=== PATIENT | male | born 1950 | race Caucasian/White ===

== ENCOUNTER 2017-03-03 08:22 | Outpatient (CLI) | payer OTHER ==
[2017-03-03 11:46] LABS: BASOPHILS # (AUTO) 0.1 10^3/uL (0.0-0.1); BASOPHILS % (AUTO) 1.3 %; EOSINOPHILS # (AUTO) 0.2 10^3/uL (0.0-0.7); EOSINOPHILS % (AUTO) 4.1 %; HCT - HEMATOCRIT 36.9 % (42.0-52.0); HGB - HEMOGLOBIN 12.4 g/dL (14.0-18.0); LYMPHOCYTES # (AUTO) 3.2 10^3/uL (1.5-3.5); LYMPHOCYTES % (AUTO) 54.4 %; MEAN CORPUSCULAR HEMOGLOBIN 28.7 pg (27.0-31.0); MEAN CORPUSCULAR HGB CONC 33.4 g/dL (32.0-36.0); MEAN CORPUSCULAR VOLUME 85.9 fL (80.0-94.0); MEAN PLATELET VOLUME 9.2 fL (7.4-11.4); MONOCYTES # (AUTO) 0.6 10^3/uL (0.0-1.0); NEUTROPHILS # (AUTO) 1.7 10^3/uL (1.5-6.6); NEUTROPHILS % (AUTO) 29.2 %; RED CELL DISTRIBUTION WIDTH 14.5 % (12.0-15.0); UNCORRECTED WHITE BLOOD COUNT 5.9 x10^3/uL; WHITE BLOOD COUNT 5.9 x10^3/uL (4.8-10.8)
[2017-03-03 12:04] LABS: ALBUMIN/GLOBULIN RATIO 1.3 (1.0-2.2); BILIRUBIN,TOTAL 0.7 mg/dL (0.2-1.0); BUN - BLOOD UREA NITROGEN 17 mg/dL (6-20); CALCIUM 9.8 mg/dL (8.5-10.3); CARBON DIOXIDE - CO2 28 mmol/L (21-32); CHLORIDE 108 mmol/L (101-111); CHOL/HDL RATIO 4.9 (<5.0); CHOLESTEROL 137 mg/dL; GFR - MDRD 75 (>89); GLUCOSE 86 mg/dL (70-100); HDL CHOLESTEROL 28 mg/dL; LDL/HDL RATIO 2.9 (<3.6); SODIUM 142 mmol/L (135-145); TOTAL PROTEIN 7.7 g/dL (6.7-8.2); TRIGLYCERIDES 146 mg/dL; URIC ACID 4.4 mg/dL (2.6-7.2); VLDL CHOLESTEROL 29 mg/dL
== END 2017-03-03 08:23 | disposition home or self-care (01) ==
LOC: LAB.F 08:22
PROVIDERS: ATTEND Family Medicine
DX: I10 Essential (primary) hypertension (principal); R53.83 Other fatigue; M10.9 Gout, unspecified; G47.30 Sleep apnea, unspecified; K21.9 Gastro-esophageal reflux disease without esophagitis
CPT/HCPCS: 36415; 80053; 80061; 84153; 84443; 84550; 85025

== ENCOUNTER 2017-08-04 23:59 | Emergency (ER) | payer OTHER ==
--- NOTE | 2017-08-05 00:19 | ED Physician Documentation ---
PD HPI CHEST PAIN - Stated complaint Stated Complaint: CHEST/BACK PX - Chief complaint Chief Complaint: Cardiac - History obtained from History obtained from: Patient - History of Present Illness Timing - onset: How many days ago (2) Timing - duration: Days Timing - details: Still present, Intermittant, Waxing and waning Pain level now: 8 Quality: Pain Location: Other (back (mid-level (lower thoracic/upper lumbar)), radiating around both sides to chest to sternum/epigastrium) Radiation: Other (as above) Improved by: Nothing Worsened by: Movement Associated symptoms: Feeling faint / dizzy (syncope x 2). No: Shortness of air , Diaphoresis, Nausea, Vomiting, General Weakness, Palpitations, Cough Similar symptoms before: Has not had sx before Recently seen: Not recently seen - Additional information Additional information: c/o 2 days of episodic back pain that radiates around both flanks, predominantly left side, to epigastrium and lower midline chest, became too intense to tolerate tonight. Earlier this evening, while taking a hot shower, he had two consecutive syncopal episodes, both with rapid recovery to baseline level of consciousness and both were associated with prodrome of lightheadedness , generalized weakness, and perception that he was going to "pass out". No injury with either syncopal episode. Patient says he has had similar episodes in the past; he provides example of an instance where he passed out due to "the sight of blood". However, the pain he is experiencing is not something he has had before. Review of Systems Constitutional: denies: Fever, Chills, Sweats Cardiac: reports: Chest pain / pressure. denies: Palpitations, Pedal edema, Calf pain Respiratory: reports: Reviewed and negative GI: reports: Abdominal Pain. denies: Nausea, Vomiting, Constipation, Diarrhea : denies: Dysuria, Frequency Skin: denies: Rash Musculoskeletal: reports: Back pain Neurologic: reports: Syncope. denies: Generalized weakness, Focal weakness, Numbness, Headache, Head injury PD PAST MEDICAL HISTORY - Past Medical History Cardiovascular: None Respiratory: None Endocrine/Autoimmune: None Musculoskeletal: Osteoarthritis, Rheumatoid arthritis, Osteoporosis, Fatigue, Chronic back pain - Present Medications Home Medications: Ambulatory Orders Medication Instructions Recorded Confirmed Allopurinol 1 tab PO DAILY 08/05/17 08/05/17 Atenolol 1 tab PO DAILY 08/05/17 08/05/17 Gemfibrozil 1 tab PO BID 08/05/17 08/05/17 HYDROmorphone [Dilaudid] 2 mg PO Q4H PRN #14 tablet 08/05/17 - Allergies Allergies/Adverse Reactions: Allergies Allergy/AdvReac Type Severity Reaction Status Date / Time sulfamethoxazole AdvReac Itching Verified 08/05/17 02:19 [From Bactrim] trimethoprim [From Bactrim] AdvReac Itching Verified 08/05/17 02:19 PD ED PE NORMAL - Vitals Vital signs reviewed: Yes - General General: Alert and oriented X 3, Well developed/nourished, Other (appears to be in painful distress) - HEENT HEENT: PERRL, EOMI, Moist mucous membranes - Neck Neck: No bony TTP - Cardiac Cardiac: RRR, No murmur - Respiratory Respiratory: No respiratory distress, Clear bilaterally - Abdomen Abdomen: Soft, Non tender, Non distended - Back Back: No CVA TTP, No spinal TTP - Derm Derm: Normal color, Warm and dry, No rash - Extremities Extremities: No deformity, No tenderness to palpate, No edema - Neuro Neuro: Alert and oriented X 3, 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, No motor deficit, No sensory deficit, Normal speech Eye Opening: Spontaneous Motor: Obeys Commands Verbal: Oriented GCS Score: 15 Results - Vitals Vitals: Vital Signs - 24 hr 08/05/17 08/05/17 08/05/17 00:05 00:10 00:26 Temperature 36.7 C Heart Rate 69 64 Respiratory 18 16 Rate Blood Pressure 148/74 H Blood Pressure 126/63 [Left] O2 Saturation 98 99 08/05/17 08/05/17 08/05/17 00:53 01:19 01:35 Temperature Heart Rate 67 64 64 Respiratory 15 14 15 Rate Blood Pressure 122/72 120/98 H 126/72 Blood Pressure [Left] O2 Saturation 100 100 100 08/05/17 08/05/17 08/05/17 01:58 02:10 02:43 Temperature Heart Rate 61 63 71 Respiratory 18 14 18 Rate Blood Pressure 127/66 127/66 126/77 Blood Pressure [Left] O2 Saturation 100 100 100 08/05/17 08/05/17 08/05/17 03:27 04:15 05:03 Temperature 36.4 C L Heart Rate 75 69 69 Respiratory 21 19 12 Rate Blood Pressure 119/70 115/69 106/51 L Blood Pressure [Left] O2 Saturation 99 97 99 08/05/17 08/05/17 05:37 06:15 Temperature Heart Rate 80 68 Respiratory 16 15 Rate Blood Pressure 106/60 100/68 Blood Pressure [Left] O2 Saturation 98 100 Oxygen O2 Source Room air - EKG (time done) No standard instances Rate: Rate (enter#) (68) Rhythm: NSR [place]: Normal Intervals: Normal [place] QRS: Normal Ischemia: Normal ST segments - Labs Labs: Laboratory Tests 08/05/17 08/05/17 08/05/17 00:10 00:10 00:10 WBC 10.3 RBC 4.32 L Hgb 12.8 L Hct 36.7 L MCV 84.9 MCH 29.7 MCHC 35.0 RDW 14.2 Plt Count 164 MPV 8.3 Neut # 6.7 H Lymph # 1.9 [place] # 1.4 H Eos # 0.2 Baso # 0.1 Absolute Nucleated RBC 0.00 Nucleated RBC % 0.0 D-Dimer Sodium 136 Potassium 4.0 Chloride 100 L Carbon Dioxide 25 Anion Gap 11.0 BUN 14 Creatinine 1.1 Estimated GFR (MDRD) 67 L Glucose 102 H Calcium 9.7 Total Bilirubin 0.5 AST 33 ALT 22 Alkaline Phosphatase 44 Troponin I < 0.04 Total Protein 8.4 H Albumin 4.8 Globulin 3.6 Albumin/Globulin Ratio 1.3 Lipase 40 08/05/17 00:10 WBC RBC Hgb Hct MCV MCH MCHC RDW Plt Count MPV Neut # Lymph # [place] # Eos # Baso # Absolute Nucleated RBC Nucleated RBC % D-Dimer 318.8 H Sodium Potassium Chloride Carbon Dioxide Anion Gap BUN Creatinine Estimated GFR (MDRD) Glucose Calcium Total Bilirubin AST ALT Alkaline Phosphatase Troponin I Total Protein Albumin Globulin Albumin/Globulin Ratio Lipase - Rads (name of study) chest xray Radiology: Prelim report reviewed, See rad report CT chest (contrast aorta study) Radiology: Prelim report reviewed, See rad report PD MEDICAL DECISION MAKING - ED course Complexity details: reviewed results, re-evaluated patient, considered differential, d/w patient, d/w family ED course: Transient relief with morphine 4mg IV, but subsequent dose did not improve the pain. IV Dilaudid 1mg resulted in good and sustained improvement. His SBP ran as low as 90 but mostly was in 100-120 range, and improved from 90 after [address] A/P reveals gallstone with GB dilatation. I offered admission, essentially for pain control, but patient strongly expresses that he wants to go home. He says he has had unpleasant side effect with oxycodone and hydrocodone in the past, and thus I prescribed small amount of hydromorphone. I instructed him to return immediately if symptoms worsen or if any fever. Departure - Departure Disposition: 01 Home, Self Care Clinical Impression: Biliary colic Condition: Good Instructions: ED Gallstone W Biliary Colic Follow-Up: ANGELLA HUNT MD [Provider Admit Priv/Credential] - Prescriptions: HYDROmorphone [Dilaudid] 2 mg PO Q4H PRN #14 tablet PRN Reason: Pain Discharge Date/Time: 08/05/17 06:23
[2017-08-05] MEDS ORDERED: MORPHINE 2 MG/ML SYRINGE IVP STA (00:47)
[2017-08-05 00:48] LABS: BASOPHILS # (AUTO) 0.1 10^3/uL (0.0-0.1); BASOPHILS % (AUTO) 0.8 %; EOSINOPHILS # (AUTO) 0.2 10^3/uL (0.0-0.7); EOSINOPHILS % (AUTO) 1.5 %; HCT - HEMATOCRIT 36.7 % (42.0-52.0); HGB - HEMOGLOBIN 12.8 g/dL (14.0-18.0); LYMPHOCYTES # (AUTO) 1.9 10^3/uL (1.5-3.5); LYMPHOCYTES % (AUTO) 18.8 %; MEAN CORPUSCULAR HEMOGLOBIN 29.7 pg (27.0-31.0); MEAN CORPUSCULAR VOLUME 84.9 fL (80.0-94.0); MEAN PLATELET VOLUME 8.3 fL (7.4-11.4); MONOCYTES # (AUTO) 1.4 10^3/uL (0.0-1.0); MONOCYTES % (AUTO) 14.1 %; NEUTROPHILS # (AUTO) 6.7 10^3/uL (1.5-6.6); NEUTROPHILS % (AUTO) 64.8 %; RED BLOOD COUNT 4.32 10^6/uL (4.70-6.10); RED CELL DISTRIBUTION WIDTH 14.2 % (12.0-15.0); UNCORRECTED WHITE BLOOD COUNT 10.3 x10^3/uL; WHITE BLOOD COUNT 10.3 x10^3/uL (4.8-10.8)
[2017-08-05 00:58] LABS: ALBUMIN/GLOBULIN RATIO 1.3 (1.0-2.2); BILIRUBIN,TOTAL 0.5 mg/dL (0.2-1.0); CALCIUM 9.7 mg/dL (8.5-10.3); CREATININE 1.1 mg/dL (0.6-1.2); TOTAL PROTEIN 8.4 g/dL (6.7-8.2)
[2017-08-05] MEDS ORDERED: MORPHINE 2 MG/ML SYRINGE ONE ×2 (00:58→01:39)
[2017-08-05] MEDS ORDERED: MORPHINE 10 MG/ML VIAL IVP STA (01:24)
--- NOTE | 2017-08-05 01:52 | XRAY Preliminary Report ---
Exam: XR CHEST 2 VIEW PA/LAT IMPRESSION: 1. No acute abnormality seen in the chest. [facility] SITE ID: [id number]
--- NOTE | 2017-08-05 01:54 | XRAY Report ---
EXAM: CHEST RADIOGRAPHY EXAM DATE: 08/05/2017 01:21 AM. CLINICAL HISTORY: Chest/upper back pain, syncope. COMPARISON: None. TECHNIQUE: 2 views. FINDINGS: Lungs/Pleura: No alveolar consolidation or pleural effusion seen. No pneumothorax. Mediastinum: Heart and mediastinal contours are unremarkable. Other: None. IMPRESSION: 1. No acute abnormality seen in the chest. [facility] Referring Provider Line: [phone] SITE ID: [id number]
[2017-08-05] MEDS ORDERED: IOPAMIDOL-300 100 ML VIAL ONE (02:11)
[2017-08-05] MEDS ORDERED: HYDROmorphone 1 MG/ML SYRINGE IVP STA (02:12)
[2017-08-05] MEDS ORDERED: HYDROmorphone 1 MG/ML SYRINGE ONE (02:20)
[2017-08-05] MEDS ORDERED: IOPAMIDOL-300 100 ML VIAL IVP ONE (02:41)
--- NOTE | 2017-08-05 03:08 | CT Preliminary Report ---
Exam: CT CHEST ANGIO (AORTA) IMPRESSION: 1. No aortic aneurysm or dissection seen. 2. No pulmonary emboli. 3. Fatty liver. 4. Coronary artery calcifications and possibly stents. 5. Distended gallbladder with calcified stone at the neck. No definite cholecystitis but correlate fo r any gallbladder symptoms. [facility] SITE ID: [id number]
--- NOTE | 2017-08-05 03:10 | CT Report ---
EXAM: CT ANGIOGRAM CHEST EXAM DATE: 08/05/2017 02:45 AM. CLINICAL HISTORY: Chest and thoracic back pain. COMPARISON: None. TECHNIQUE: Routine helical imaging was performed through the chest in the arterial phase. IV contrast : Nonionic. Reconstructions: Coronal, sagittal, and 3D MIP reconstructions of the aorta. In accordance with CT protocol optimization, one or more of the following dose reduction techniques w ere utilized for this exam: automated exposure control, adjustment of mA and/or KV based on patient s ize, or use of iterative reconstructive technique. FINDINGS: Vascular Structures: No aortic dissection. Ascending aorta measures 3.5 cm. No significant stenosis s een in the arch vessels. At least mild stenosis in the celiac axis. No significant stenosis in the goldstein perior mesenteric artery. There may be mild bilateral renal artery stenosis. No pulmonary emboli are seen. Lungs/Pleura: Mild bibasilar atelectasis. No ainsley alveolar consolidation or pleural effusion. No pne umothorax. Mediastinum: Heart size is normal. Coronary artery calcifications and possibly stents. Normal sized m ediastinal lymph nodes. Upper Abdomen: Fatty liver. Distended gallbladder with calcified stone at the neck. Other: Degenerative changes in the spine. IMPRESSION: 1. No aortic aneurysm or dissection seen. 2. No pulmonary emboli. 3. Fatty liver. 4. Coronary artery calcifications and possibly stents. 5. Distended gallbladder with calcified stone at the neck. No definite cholecystitis but correlate fo r any gallbladder symptoms. [facility] Referring Provider Line: [phone] SITE ID: [id number]
[2017-08-05] MEDS ORDERED: SODIUM CHLORIDE 0.9% 1,000 ML IV STA (04:06)
[2017-08-05] MEDS ORDERED: KETOROLAC 60 MG/2 ML VIAL IVP STA ×2 (04:07→04:09)
[2017-08-05] MEDS ORDERED: KETOROLAC 30 MG/ML VIAL ONE (04:18)
[2017-08-05 06:23] VITALS: BP 100/68
== END 2017-08-05 06:23 | disposition home or self-care (01) ==
LOC: ED 23:59
DX: K80.50 Calculus of bile duct without cholangitis or cholecystitis without obstruction (principal); M06.9 Rheumatoid arthritis, unspecified
CPT/HCPCS: 36415; 71020; 71275; 80053; 83690; 84484; 85025; 85379; 93005; 96361; 96374; 96375; 96376; 99284; 99285; J1170; J2270; Q9967

== ENCOUNTER 2017-08-21 15:23 | Emergency (ER) | payer OTHER ==
--- NOTE | 2017-08-21 15:49 | ED Physician Documentation ---
History of Present Illness - Stated complaint Stated Complaint: PNA/PE RULE OUT - Chief complaint Chief Complaint: General - Additonal information Additional information: hx from pt and EMR and PMD records 66 male seen in [facility] ED 08/05 for upper back and shoulder pain and hypotension - had a non ischemic EKG and neg trop that visit - CT AP showed gallstones and and dilated CBD but per ER notes pt declined admit and went home to [facility] with surgery pt had surgery at [place] on 08/11 he continued to have sx and inc SOA saw PMD 08/18 and had CXR shows small R pleural effusion 08/18 PM his sx were much worse radiating to R arm and jaw now slightly better but still hurts and feels very weak and SOA back to clinic today and pale and hypotensive so sent POV to the ER Review of Systems Constitutional: reports: Fatigue. denies: Fever Cardiac: reports: Chest pain / pressure (posterior) Respiratory: reports: Dyspnea GI: reports: Abdominal Pain (post op), Constipation (X 3 days) Musculoskeletal: reports: Back pain, Extremity pain Neurologic: reports: Generalized weakness Endocrine: denies: Easy bruising / bleeding Immunocompromised: denies: Immunocompromised PD PAST MEDICAL HISTORY - Past Medical History Cardiovascular: None Respiratory: None Endocrine/Autoimmune: None Musculoskeletal: Osteoarthritis, Rheumatoid arthritis, Osteoporosis, Fatigue, Chronic back pain - Past Surgical History Past Surgical History: Yes Ortho: Other - Present Medications Home Medications: Ambulatory Orders Medication Instructions Recorded Confirmed Allopurinol 1 tab PO DAILY 08/05/17 08/05/17 Atenolol 1 tab PO DAILY 08/05/17 08/05/17 Gemfibrozil 1 tab PO BID 08/05/17 08/05/17 HYDROmorphone [Dilaudid] 2 mg PO Q4H PRN #14 tablet 08/05/17 - Allergies Allergies/Adverse Reactions: Allergies Allergy/AdvReac Type Severity Reaction Status Date / Time sulfamethoxazole AdvReac Itching Verified 08/05/17 02:19 [From Bactrim] trimethoprim [From Bactrim] AdvReac Itching Verified 08/05/17 02:19 - Social History Does the pt smoke?: No Smoking Status: Never smoker Does the pt drink ETOH?: Yes Does the pt have substance abuse?: No - Immunizations Immunizations are current?: Yes - POLST Patient has POLST: No PD ED PE NORMAL - Vitals Vital signs reviewed: Yes (BP here 124, per clinic SBP was 90) - General General: Alert and oriented X 3 - Neck Neck: Supple, no meningeal sign - Cardiac Cardiac: RRR - Respiratory Respiratory: Other (dec ino bases with a few crackles) - Abdomen Abdomen: Other (incisiosn with small echymosis, no erythema warmth or dehisc, mild TTP RUQ) - Derm Derm: Other (pale) - Extremities Extremities: No edema - Neuro Neuro: Alert and oriented X 3 Results - Vitals Vitals: Vital Signs - 24 hr 08/21/17 08/21/17 08/21/17 15:27 15:30 15:37 Temperature 36.3 C L Heart Rate 89 80 82 Respiratory 18 16 14 Rate Blood Pressure 124/86 H 124/86 H 124/86 H O2 Saturation 94 98 97 08/21/17 08/21/17 15:45 16:05 Temperature Heart Rate 78 84 Respiratory 16 16 Rate Blood Pressure 128/80 130/84 H O2 Saturation 97 99 Oxygen O2 Source Room air - EKG (time done) 1536 Rate: Rate (enter#) (80) Rhythm: NSR [place]: Normal Ischemia: ST elevation c/w ischemia, Other (V1-V5 - with associated Q waves) - Labs Labs: Laboratory Tests 08/21/17 08/21/17 08/21/17 16:00 16:00 16:00 WBC 29.2 H RBC 3.56 L Hgb 10.1 L Hct 30.4 L MCV 85.3 MCH 28.3 MCHC 33.1 RDW 14.5 Plt Count 395 MPV 8.2 Neut # Not Reportable Lymph # Not Reportable [place] # Not Reportable Eos # Not Reportable Baso # Not Reportable Absolute Nucleated RBC Not Reportable Total Counted 100 Band Neuts % (Manual) 3 Abnorm Lymph % (Manual) 0 Nucleated RBC % Not Reportable Neutrophils # (Manual) 27.2 H Lymphocytes # (Manual) 1.2 L Monocytes # (Manual) 0.9 Eosinophils # (Manual) 0.0 Basophils # (Manual) 0.0 Differential Comment MANUAL DIFFERENTIAL Platelet Estimate NORMAL (130-450,000) Platelet Morphology NORMAL APPEARANCE RBC Morph Micro Appear NORMAL APPEARANCE Sodium 130 L Potassium 3.5 Chloride 89 L Carbon Dioxide 23 Anion Gap 18.0 H BUN 24 H Creatinine 1.6 H Estimated GFR (MDRD) 44 L Glucose 100 Calcium 8.9 Total Bilirubin 0.9 AST 141 H ALT 77 H Alkaline Phosphatase 93 Troponin I 13.91 H* Total Protein 8.2 Albumin 3.1 L Globulin 5.1 H Albumin/Globulin Ratio 0.6 L Lipase 24 - Rads (name of study) CXR Radiology: See rad report (my read - mild CHF, nl mediastinum. Rad read small ino effusions) PD MEDICAL DECISION MAKING - ED course ED course: given sx of intrascapular pain and recent surgery initially considered dissection or PE or biliary leak but got EKG and it shows a STEMI - but with new Q waves - suspect subacute STEMI activate STEMI system [facility] ER doc Dr House accepts paged and waiting call from cardio stat ALS transfer pt given asa and heparin bolus gtt prior to departure, no BB or nitrates 2/2 hypotension, pain presently mild but EMS to give morphine if worse at time of trasnfer - EKG done, CXR taken and viewed by me but no rad read, labs pending Departure - Departure Disposition: 02 Transfer Acute Care Hosp Clinical Impression: STEMI (ST elevation myocardial infarction) Qualifiers: Involved coronary artery: unspecified coronary artery Qualified Code(s): I21.3 - ST elevation (STEMI) myocardial infarction of unspecified site Condition: Serious Discharge Date/Time: 08/21/17 16:08
[2017-08-21] MEDS ORDERED: ASPIRIN CHEW 81 MG TABLET PO STA (15:52)
[2017-08-21] MEDS ORDERED: ASPIRIN CHEW 81 MG TABLET ONE (15:54)
[2017-08-21] MEDS ORDERED: HEPARIN 5,000 UNIT/ML VIAL IVP ONE (15:56)
[2017-08-21] MEDS ORDERED: HEPARIN 25,000 UNITS/500 ML NS 25,000 UNIT/500 ML BAG IV STA (15:56)
[2017-08-21] MEDS ORDERED: MORPHINE 2 MG/ML SYRINGE IVP STA (16:01)
[2017-08-21 16:05] LABS: BASOPHILS % (AUTO) 0.5 %; HCT - HEMATOCRIT 30.4 % (42.0-52.0); HGB - HEMOGLOBIN 10.1 g/dL (14.0-18.0); LYMPHOCYTES % (AUTO) 5.6 %; MEAN CORPUSCULAR HEMOGLOBIN 28.3 pg (27.0-31.0); MEAN CORPUSCULAR HGB CONC 33.1 g/dL (32.0-36.0); MEAN CORPUSCULAR VOLUME 85.3 fL (80.0-94.0); MEAN PLATELET VOLUME 8.2 fL (7.4-11.4); MONOCYTES % (AUTO) 7.6 %; NEUTROPHILS % (AUTO) 85.3 %; RED BLOOD COUNT 3.56 10^6/uL (4.70-6.10); RED CELL DISTRIBUTION WIDTH 14.5 % (12.0-15.0); UNCORRECTED WHITE BLOOD COUNT 29.2 x10^3/uL; WHITE BLOOD COUNT 29.2 x10^3/uL (4.8-10.8)
--- NOTE | 2017-08-21 16:07 | XRAY Preliminary Report ---
Exam: XR CHEST 1 VIEW IMPRESSION: 1. Borderline heart size. 2. Bilateral pleural effusions. [facility] SITE ID: [id number]
[2017-08-21] MEDS ORDERED: HEPARIN 5,000 UNIT/ML VIAL ONE (16:08)
--- NOTE | 2017-08-21 16:10 | XRAY Report ---
EXAM: CHEST RADIOGRAPHY EXAM DATE: 08/21/2017 03:59 PM. CLINICAL HISTORY: Chest pain and shortness of breath post op. COMPARISON: 08/05/2017. TECHNIQUE: 1 view. FINDINGS: Lungs/Pleura: Bilateral pleural effusions. No focal opacities evident. No pneumothorax. Mediastinum: Borderline heart size. Other: No bony abnormality identified. IMPRESSION: 1. Borderline heart size. 2. Bilateral pleural effusions. [facility] Referring Provider Line: [phone] SITE ID: [id number]
[2017-08-21 16:19] LABS: ALBUMIN/GLOBULIN RATIO 0.6 (1.0-2.2); BILIRUBIN,TOTAL 0.9 mg/dL (0.2-1.0); CALCIUM 8.9 mg/dL (8.5-10.3); CREATININE 1.6 mg/dL (0.6-1.2); POTASSIUM 3.5 mmol/L (3.5-5.0); TOTAL PROTEIN 8.2 g/dL (6.7-8.2)
[2017-08-21 16:29] VITALS: BP 130/84
[2017-08-21 16:38] LABS: BAND NEUTROPHILS % (MANUAL) 3 %; LYMPHOCYTES % (MANUAL) 4 %; NEUTROPHILS % (MANUAL) 90 %; PLATELET ESTIMATE, MANUAL NORMAL (130-450,000) (NORMAL); PLATELET MORPHOLOGY NORMAL APPEARANCE (NORMAL); TOTAL CELLS COUNTED 100
[2017-08-21 16:39] LABS: NP AUTO DIFFERENTIAL? YES; NP MAN DIFFERENTIAL? NO
== END 2017-08-21 16:08 | disposition short-term general hospital (02) ==
LOC: ED 15:23
DX: I21.3 ST elevation (STEMI) myocardial infarction of unspecified site (principal)
CPT/HCPCS: 36415; 71010; 80053; 83690; 84484; 85025; 93005; 96374; 99284; A9270; 83605; 86850; 86900; 86901; 87040

== ENCOUNTER 2017-08-21 16:10 | Outpatient (CLI) | payer OTHER | END 2017-08-21 16:11 | disposition short-term general hospital (02) | LOC: EMS 16:10 | PROVIDERS: ATTEND Surgery | DX: I21.3 ST elevation (STEMI) myocardial infarction of unspecified site (principal) | CPT/HCPCS: A0425; A0427 ==

== ENCOUNTER 2017-09-08 08:09 | Outpatient (CLI) | payer MEDICARE, OTHER ==
[2017-09-08 12:40] LABS: CALCIUM 8.7 mg/dL (8.5-10.3); CREATININE 1.6 mg/dL (0.6-1.2)
== END 2017-09-08 08:10 | disposition home or self-care (01) ==
LOC: LAB.F 08:09
PROVIDERS: ATTEND Internal Medicine Geriatric Medicine
DX: N17.8 Other acute kidney failure (principal); I21.4 Non-ST elevation (NSTEMI) myocardial infarction; I50.9 Heart failure, unspecified
CPT/HCPCS: 36415; 80048

== ENCOUNTER 2017-09-11 13:10 | Outpatient (CLI) | payer MEDICARE, OTHER ==
--- NOTE | 2017-09-11 14:11 | XRAY Report ---
DATE OF SERVICE: 09/11/2017 TWO VIEW CHEST: 09/11/2017 CLINICAL INDICATION: Check PICC prior to infusion. FINDINGS: Frontal and lateral views of the chest demonstrate a normal cardiac silhouette. Small ple ural effusions and basilar atelectasis are noted. A right arm PICC terminates in the mid superior vena ca va. No pneumothorax is present. IMPRESSION: RIGHT ARM PICC TERMINATING IN THE MID SUPERIOR VENA CAVA. SMALL PLEURAL EFFUSIONS AND B ASILAR ATELECTASIS. TD: 09/11/2017 15:09
== END 2017-09-11 13:11 | disposition home or self-care (01) ==
LOC: DI 13:10
PROVIDERS: ATTEND Internal Medicine Infectious Disease
DX: Z45.2 Encounter for adjustment and management of vascular access device (principal)
CPT/HCPCS: 71046

== ENCOUNTER 2017-09-29 08:00 | Outpatient (CLI) | payer MEDICARE ==
[2017-09-29 10:28] LABS: CALCIUM 8.9 mg/dL (8.5-10.3); CREATININE 1.3 mg/dL (0.6-1.2)
== END 2017-09-29 08:01 | disposition home or self-care (01) ==
LOC: LAB.F 08:00
PROVIDERS: ATTEND Internal Medicine Cardiovascular Disease
DX: I25.5 Ischemic cardiomyopathy (principal)
CPT/HCPCS: 36415; 80048

== ENCOUNTER 2017-11-08 16:04 | Outpatient (CLI) | payer MEDICARE ==
[2017-11-08 19:01] LABS: BASOPHILS # (AUTO) 0.1 10^3/uL (0.0-0.1); BASOPHILS % (AUTO) 1.4 %; EOSINOPHILS # (AUTO) 0.2 10^3/uL (0.0-0.7); EOSINOPHILS % (AUTO) 2.7 %; HGB - HEMOGLOBIN 10.4 g/dL (14.0-18.0); LYMPHOCYTES # (AUTO) 2.4 10^3/uL (1.5-3.5); MEAN CORPUSCULAR HEMOGLOBIN 24.3 pg (27.0-31.0); MEAN CORPUSCULAR HGB CONC 31.6 g/dL (32.0-36.0); MEAN CORPUSCULAR VOLUME 76.9 fL (80.0-94.0); MONOCYTES # (AUTO) 0.6 10^3/uL (0.0-1.0); MONOCYTES % (AUTO) 8.9 %; NEUTROPHILS # (AUTO) 3.9 10^3/uL (1.5-6.6); PLT - PLATELET COUNT 216 10^3/uL (130-450); RED BLOOD COUNT 4.28 10^6/uL (4.70-6.10); RED CELL DISTRIBUTION WIDTH 17.9 % (12.0-15.0); WHITE BLOOD COUNT 7.2 x10^3/uL (4.8-10.8)
[2017-11-08 19:11] LABS: ALBUMIN 4.4 g/dL (3.2-5.5); ALBUMIN/GLOBULIN RATIO 1.1 (1.0-2.2); BILIRUBIN,TOTAL 0.6 mg/dL (0.2-1.0); CALCIUM 9.3 mg/dL (8.5-10.3); TOTAL PROTEIN 8.5 g/dL (6.7-8.2)
== END 2017-11-08 16:05 | disposition home or self-care (01) ==
LOC: LAB.WCP 16:04
PROVIDERS: ATTEND Family Medicine
DX: J90 Pleural effusion, not elsewhere classified (principal); D50.9 Iron deficiency anemia, unspecified; N17.8 Other acute kidney failure
CPT/HCPCS: 36415; 80053; 85025

== ENCOUNTER 2017-11-24 08:00 | Outpatient (CLI) | payer MEDICARE ==
[2017-11-24 12:56] LABS: CALCIUM 9.6 mg/dL (8.5-10.3); CREATININE 1.1 mg/dL (0.6-1.2)
== END 2017-11-24 08:01 | disposition home or self-care (01) ==
LOC: LAB.WCP 08:00
PROVIDERS: ATTEND Internal Medicine Cardiovascular Disease
DX: I25.5 Ischemic cardiomyopathy (principal)
CPT/HCPCS: 36415; 80048

== ENCOUNTER 2018-01-31 09:04 | Outpatient (CLI) | payer MEDICARE ==
--- NOTE | 2018-01-31 13:07 | XRAY Report ---
TWO VIEW CHEST: 01/31/2018 CLINICAL INDICATION: Cough, dyspnea. COMPARISON: 11/08/2017. FINDINGS: Frontal and lateral views of the chest demonstrate a normal cardiac silhouette. The lungs are hyperinflated, with emphysematous changes. Right effusion has resolved. No new infiltrate or pneumothorax. IMPRESSION: HYPERINFLATION, WITH EMPHYSEMATOUS CHANGES. NO EVIDENCE OF ACUTE CARDIOPULMONARY DISEASE. TD: 01/31/2018 12:38
== END 2018-01-31 09:05 | disposition home or self-care (01) ==
LOC: DI 09:04
PROVIDERS: ATTEND Internal Medicine Cardiovascular Disease
DX: R06.09 Other forms of dyspnea (principal); R05 Cough
CPT/HCPCS: 71046

== ENCOUNTER 2018-02-02 13:00 | Outpatient (CLI) | payer MEDICARE ==
[2018-02-02 18:58] LABS: BASOPHILS % (AUTO) 0.7 %; EOSINOPHILS % (AUTO) 0.3 %; HGB - HEMOGLOBIN 9.7 g/dL (14.0-18.0); MEAN CORPUSCULAR VOLUME 77.4 fL (80.0-94.0); MEAN PLATELET VOLUME 8.3 fL (7.4-11.4); MONOCYTES % (AUTO) 14.1 %; NEUTROPHILS % (AUTO) 72.9 %; PLT - PLATELET COUNT 323 10^3/uL (130-450); RED BLOOD COUNT 4.05 10^6/uL (4.70-6.10); RED CELL DISTRIBUTION WIDTH 17.7 % (12.0-15.0); WHITE BLOOD COUNT 14.2 x10^3/uL (4.8-10.8)
[2018-02-02 19:24] LABS: ABNORMAL LYMPHS % (MANUAL) 0 %; BAND NEUTROPHILS % (MANUAL) 0 %
[2018-02-02 19:25] LABS: ALBUMIN 3.8 g/dL (3.2-5.5); ALBUMIN/GLOBULIN RATIO 0.8 (1.0-2.2); BILIRUBIN,TOTAL 1.6 mg/dL (0.2-1.0); CALCIUM 9.1 mg/dL (8.5-10.3); CRP - C-REACTIVE PROTEIN 12.1 mg/dL (0-1.0); TOTAL PROTEIN 8.3 g/dL (6.7-8.2)
[2018-02-02 19:29] LABS: EOSINOPHILS # (MANUAL) 0.1 10^3/uL (0-0.7); LYMPHOCYTES # (MANUAL) 1.3 10^3/uL (1.5-3.5); LYMPHOCYTES % (MANUAL) 9 %; MONOCYTES # (MANUAL) 1.6 10^3/uL (0.0-1.0); NEUTROPHILS # (MANUAL) 11.2 10^3/uL (1.5-6.6); NEUTROPHILS % (MANUAL) 79 %
[2018-02-02 19:36] LABS: PLATELET ESTIMATE, MANUAL NORMAL (130-450,000) (NORMAL); PLATELET MORPHOLOGY NORMAL APPEARANCE (NORMAL)
== END 2018-02-02 13:01 | disposition home or self-care (01) ==
LOC: LAB.WCP 13:00
PROVIDERS: ATTEND Family Medicine
DX: R05 Cough (principal)
CPT/HCPCS: 36415; 80053; 83615; 83880; 85025; 86140

== ENCOUNTER 2018-02-08 13:02 | Outpatient (CLI) | payer MEDICARE ==
[2018-02-08 18:56] LABS: BASOPHILS # (AUTO) 0.1 10^3/uL (0.0-0.1); BASOPHILS % (AUTO) 0.7 %; EOSINOPHILS # (AUTO) 0.1 10^3/uL (0.0-0.7); EOSINOPHILS % (AUTO) 0.7 %; HGB - HEMOGLOBIN 10.1 g/dL (14.0-18.0); LYMPHOCYTES # (AUTO) 1.5 10^3/uL (1.5-3.5); LYMPHOCYTES % (AUTO) 13.6 %; MEAN CORPUSCULAR HEMOGLOBIN 25.5 pg (27.0-31.0); MEAN CORPUSCULAR HGB CONC 32.6 g/dL (32.0-36.0); MEAN CORPUSCULAR VOLUME 78.2 fL (80.0-94.0); MEAN PLATELET VOLUME 7.9 fL (7.4-11.4); MONOCYTES # (AUTO) 1.1 10^3/uL (0.0-1.0); MONOCYTES % (AUTO) 10.1 %; NEUTROPHILS # (AUTO) 8.2 10^3/uL (1.5-6.6); NEUTROPHILS % (AUTO) 74.9 %; PLT - PLATELET COUNT 348 10^3/uL (130-450); RED BLOOD COUNT 3.98 10^6/uL (4.70-6.10); RED CELL DISTRIBUTION WIDTH 17.5 % (12.0-15.0); WHITE BLOOD COUNT 10.9 x10^3/uL (4.8-10.8)
[2018-02-08 19:13] LABS: ALBUMIN 3.1 g/dL (3.2-5.5); ALBUMIN/GLOBULIN RATIO 0.6 (1.0-2.2); ALKALINE PHOSPHATASE 109 IU/L (42-121); ALT ALANINE AMINOTRANSFERASE 81 IU/L (10-60); AST ASPARTATE AMINOTRANSFERASE 112 IU/L (10-42); BILIRUBIN,TOTAL 1.4 mg/dL (0.2-1.0); BUN - BLOOD UREA NITROGEN 13 mg/dL (6-20); CALCIUM 8.6 mg/dL (8.5-10.3); CARBON DIOXIDE - CO2 23 mmol/L (21-32); CHLORIDE 99 mmol/L (101-111); CHOL/HDL RATIO 4.1 (<5.0); CHOLESTEROL 61 mg/dL; CREATININE 0.8 mg/dL (0.6-1.2); GFR - MDRD 97 (>89); GLUCOSE 75 mg/dL (70-100); HDL CHOLESTEROL 15 mg/dL; LDL CHOLESTEROL,CALCULATED 33 mg/dL; LDL/HDL RATIO 2.2 (<3.6); SODIUM 132 mmol/L (135-145); VLDL CHOLESTEROL 13 mg/dL
== END 2018-02-08 13:03 | disposition home or self-care (01) ==
LOC: LAB.WCP 13:02
PROVIDERS: ATTEND Family Medicine
DX: R05 Cough (principal); N17.8 Other acute kidney failure; E78.5 Hyperlipidemia, unspecified
CPT/HCPCS: 36415; 80053; 80061; 83721; 85025

== ENCOUNTER 2018-02-19 10:02 | Outpatient (CLI) | payer MEDICARE ==
[2018-02-19 12:36] LABS: BASOPHILS # (AUTO) 0.1 10^3/uL (0.0-0.1); BASOPHILS % (AUTO) 0.8 %; EOSINOPHILS # (AUTO) 0.1 10^3/uL (0.0-0.7); EOSINOPHILS % (AUTO) 1.5 %; HGB - HEMOGLOBIN 9.6 g/dL (14.0-18.0); LYMPHOCYTES # (AUTO) 1.8 10^3/uL (1.5-3.5); LYMPHOCYTES % (AUTO) 18.8 %; MEAN CORPUSCULAR HEMOGLOBIN 25.3 pg (27.0-31.0); MEAN CORPUSCULAR HGB CONC 32.4 g/dL (32.0-36.0); MEAN CORPUSCULAR VOLUME 78.2 fL (80.0-94.0); MEAN PLATELET VOLUME 7.8 fL (7.4-11.4); MONOCYTES # (AUTO) 1.4 10^3/uL (0.0-1.0); MONOCYTES % (AUTO) 14.9 %; NEUTROPHILS # (AUTO) 6.1 10^3/uL (1.5-6.6); PLT - PLATELET COUNT 316 10^3/uL (130-450); RED BLOOD COUNT 3.78 10^6/uL (4.70-6.10); RED CELL DISTRIBUTION WIDTH 17.3 % (12.0-15.0); WHITE BLOOD COUNT 9.5 x10^3/uL (4.8-10.8)
[2018-02-20 13:02] LABS: HEPATITIS A AB TOTAL(IMMUNITY) NON-REACTIVE (NON-REACTIVE); HEPATITIS B CORE AB TOTAL NON-REACTIVE (NON-REACTIVE); HEPATITIS B SURFACE ANTIGEN NON-REACTIVE (NON-REACTIVE)
[2018-02-20 13:19] LABS: HEPATITIS C ANTIBODY NON-REACTIVE (NON-REACTIVE)
[2018-02-21 13:10] LABS: ANA SCREEN NEGATIVE (NEGATIVE); ANCA SCREEN NEGATIVE (NEGATIVE)
== END 2018-02-19 10:03 ==
LOC: LAB.WCP 10:02
PROVIDERS: ATTEND Family Medicine
DX: D72.829 Elevated white blood cell count, unspecified (principal); I77.6 Arteritis, unspecified; R74.8 Abnormal levels of other serum enzymes
CPT/HCPCS: 36415; 85025; 86021; 86038; 86317; 86704; 86708; 86803; 87340

== ENCOUNTER 2018-02-25 11:15 | Outpatient (CLI) | payer MEDICARE | END 2018-02-25 11:16 | disposition home or self-care (01) | LOC: DI 11:15 | PROVIDERS: ATTEND Family Medicine | DX: D72.829 Elevated white blood cell count, unspecified (principal); I50.9 Heart failure, unspecified; R05 Cough | CPT/HCPCS: 93306 ==

== ENCOUNTER 2018-03-23 12:55 | Outpatient (CLI) | payer MEDICARE ==
[2018-03-23 13:28] LABS: CALCIUM 9.1 mg/dL (8.5-10.3); CREATININE 0.9 mg/dL (0.6-1.2)
== END 2018-03-23 12:56 | disposition home or self-care (01) ==
LOC: LAB 12:55
PROVIDERS: ATTEND Internal Medicine Cardiovascular Disease
DX: R06.02 Shortness of breath (principal)
CPT/HCPCS: 36415; 80048

== ENCOUNTER 2018-06-09 12:46 | Inpatient (IN) | payer MEDICARE ==
[2018-06-09] MEDS ORDERED: SODIUM CHLORIDE 0.9% 1,000 ML IV ONE ×3 (13:13→15:02)
--- NOTE | 2018-06-09 13:15 | ED Physician Documentation ---
History of Present Illness - Stated complaint Stated Complaint: SYNCOPE - Chief complaint Chief Complaint: General - History obtained from History obtained from: Patient, Family - History of Present Illness Timing: Today Pain level max: 0 Pain level now: 0 Improved by: nothing Worsened by: nothing - Additonal information Additional information: Patient is a 67-year-old male who presents to the emergency department after a syncopal event this morning. He got up out of bed and walk to the bathroom, on his way to the bathroom he felt lightheaded dizzy and then passed out. Family immediately woke up and found him awake on the floor. They think it was only for a few seconds. He does not have any complaints of pain. No fevers. No chest pain or palpitations. States he has not eaten since 8:00 last night. Has been feeling more tired than usual lately. Has a history of anemia. No new medications or changes to his medications. Currently feels normal. No injuries from the fall. Patient states that he has a long history of passing out Review of Systems Ten Systems: 10 systems reviewed and negative Constitutional: denies: Fever, Chills Ears: denies: Ear pain Nose: denies: Rhinorrhea / runny nose, Congestion Throat: denies: Sore throat Cardiac: denies: Chest pain / pressure, Palpitations, Calf pain Respiratory: denies: Dyspnea, Cough, Wheezing GI: denies: Abdominal Pain, Nausea, Vomiting, Diarrhea : denies: Dysuria, Frequency, Hesitancy Skin: denies: Rash Musculoskeletal: denies: Neck pain, Back pain Neurologic: denies: Focal weakness, Numbness, Confused, Altered mental status, Headache PD PAST MEDICAL HISTORY - Past Medical History Cardiovascular: None Respiratory: None Endocrine/Autoimmune: None GI: GERD : Kidney stones Psych: Anxiety, Claustrophobia Musculoskeletal: Osteoarthritis, Rheumatoid arthritis, Osteoporosis, Fatigue, Chronic back pain Derm: None - Past Surgical History Past Surgical History: Yes General: Cholecystectomy Ortho: Other - Present Medications Home Medications: Ambulatory Orders Medication Instructions Recorded Confirmed Atorvastatin Calcium 40 mg PO DAILY 09/11/17 06/09/18 Nitroglycerin 0.4 mg SL PRN PRN 09/11/17 06/09/18 Aspirin [Aspirin EC] 81 mg PO DAILY 09/12/17 06/09/18 Furosemide 20 mg PO DAILY PRN 09/12/17 06/09/18 Metoprolol Succinate 25 mg PO BID 09/12/17 06/09/18 Clopidogrel Bisulfate [Clopidogrel] 75 mg PO DAILY 06/09/18 06/09/18 - Allergies Allergies/Adverse Reactions: Allergies Allergy/AdvReac Type Severity Reaction Status Date / Time cefazolin Allergy Rash Verified 09/11/17 17:09 lorazepam Allergy Hallucinati Verified 09/11/17 14:06 ons nafcillin Allergy Rash Verified 09/11/17 17:13 amoxicillin AdvReac Unknown Verified 09/11/17 14:06 sulfamethoxazole AdvReac Itching Verified 08/05/17 02:19 [From Bactrim] trimethoprim [From Bactrim] AdvReac Itching Verified 08/05/17 02:19 - Social History Does the pt smoke?: No Smoking Status: Never smoker Does the pt drink ETOH?: Yes Does the pt have substance abuse?: No - Immunizations Immunizations are current?: Yes - POLST Patient has POLST: No PD ED PE NORMAL - Vitals Vital signs reviewed: Yes - General General: Alert and oriented X 3, No acute distress - HEENT HEENT: PERRL, Pharynx benign, Other (dry lips) - Neck Neck: Supple, no meningeal sign, No bony TTP (no stepoff or deformity) - Cardiac Cardiac: RRR, No murmur, Strong equal pulses - Respiratory Respiratory: No respiratory distress, Clear bilaterally - Abdomen Abdomen: Soft, Non tender, Non distended - Back Back: No spinal TTP (no step off or deformity.) - Derm Derm: Warm and dry - Extremities Extremities: No deformity, No tenderness to palpate, Normal ROM s pain - Neuro Neuro: Alert and oriented X 3, management rep 2-12 intact, No motor deficit, No sensory deficit, Normal speech Eye Opening: Spontaneous Motor: Obeys Commands Verbal: Oriented GCS Score: 15 - Psych Psych: Normal mood, Normal affect Results - Vitals Vitals: Vital Signs - 24 hr 06/09/18 12:54 Temperature 36.3 C L Heart Rate 101 H Respiratory 19 Rate Blood Pressure 108/83 H O2 Saturation 100 Oxygen O2 Source Room air - EKG (time done) 1304 Rate: Rate (enter#) (94) Rhythm: NSR [place]: Normal Intervals: Normal [place] QRS: Normal Ischemia: T wave inversion (V2-4) - Rads (name of study) cxr Radiology: Prelim report reviewed, EMP read contemporaneously, See rad report (Bilateral basilar opacities, slightly greater on the right. Findings may be due to developing airspace process or atelectasis. Small right pleural effusion and trace left pleural effusion.) PD MEDICAL DECISION MAKING - ED course Complexity details: reviewed old records, reviewed results, re-evaluated patient, considered differential, d/w patient, d/w family ED course: Patient is a 67-year-old male who presents to the emergency department with a syncopal episode today. He is hypotensive in the emergency department. Has been coughing at home and appears to have bilateral pneumonia on chest x-ray. Has a leukocytosis. Given IV fluids and blood cultures drawn. Lactate is normal. Given Rocephin and azithromycin. Will admit for further evaluation and care. Discussed the case with Dr. Byers, hospitalist who accepts. This document was made in part using voice recognition software. While efforts are made to proofread this document, sound alike and grammatical errors may occur. - Sepsis Event Vital Signs: Vital Signs - 24 hr 06/09/18 12:54 Temperature 36.3 C L Heart Rate 101 H Respiratory 19 Rate Blood Pressure 108/83 H O2 Saturation 100 Oxygen O2 Source Room air Departure - Departure Disposition: 66 [facility] DC/Xfer Clinical Impression: Hypotension Qualifiers: Hypotension type: unspecified hypotension type Qualified Code(s): I95.9 - Hypotension, unspecified Pneumonia Qualifiers: Pneumonia type: due to unspecified organism Laterality: bilateral Lung location: lower lobe of lung Qualified Code(s): J18.1 - Lobar pneumonia, unspecified organism Syncope Qualifiers: Syncope type: vasovagal syncope Qualified Code(s): R55 - Syncope and collapse Condition: Stable Discharge Date/Time: 06/09/18 18:57
[2018-06-09 13:21] LABS: BASOPHILS # (AUTO) 0.1 10^3/uL (0.0-0.1); BASOPHILS % (AUTO) 0.8 %; EOSINOPHILS # (AUTO) 0.1 10^3/uL (0.0-0.7); EOSINOPHILS % (AUTO) 0.5 %; HGB - HEMOGLOBIN 10.1 g/dL (14.0-18.0); LYMPHOCYTES # (AUTO) 0.9 10^3/uL (1.5-3.5); LYMPHOCYTES % (AUTO) 7.8 %; MEAN CORPUSCULAR HEMOGLOBIN 24.7 pg (27.0-31.0); MEAN CORPUSCULAR HGB CONC 32.9 g/dL (32.0-36.0); MEAN CORPUSCULAR VOLUME 75.2 fL (80.0-94.0); MEAN PLATELET VOLUME 8.4 fL (7.4-11.4); MONOCYTES # (AUTO) 1.2 10^3/uL (0.0-1.0); NEUTROPHILS # (AUTO) 9.5 10^3/uL (1.5-6.6); NEUTROPHILS % (AUTO) 80.9 %; PLT - PLATELET COUNT 166 10^3/uL (130-450); RED BLOOD COUNT 4.09 10^6/uL (4.70-6.10); RED CELL DISTRIBUTION WIDTH 19.5 % (12.0-15.0); WHITE BLOOD COUNT 11.8 x10^3/uL (4.8-10.8)
[2018-06-09 13:28] LABS: ALBUMIN 3.4 g/dL (3.2-5.5); ALBUMIN/GLOBULIN RATIO 0.7 (1.0-2.2); BILIRUBIN,TOTAL 1.3 mg/dL (0.2-1.0); CALCIUM 8.4 mg/dL (8.5-10.3); CREATININE 0.8 mg/dL (0.6-1.2); TOTAL PROTEIN 8.1 g/dL (6.7-8.2)
[2018-06-09] MEDS ORDERED: ACETAMINOPHEN 500 MG TABLET PO STA (13:49)
--- NOTE | 2018-06-09 14:04 | XRAY Report ---
Reason: syncope Procedure Date: 06/09/2018 Accession Number: [id number] / [id number] Procedure: XR - Chest 1 View X-Ray CPT Code: 79856 FULL RESULT: EXAM: CHEST RADIOGRAPHY EXAM DATE: 06/09/2018 01:41 PM. CLINICAL HISTORY: Syncope. COMPARISON: 02/20/18. TECHNIQUE: 1 view. FINDINGS: Lungs/Pleura: There are bilateral basilar opacities, slightly greater on the right. There are is a small right pleural effusion and trace left pleural effusion. No pneumothorax. Mediastinum: Within exam limitations, the cardiomediastinal contour is normal. Other: None. IMPRESSION: 1. Bilateral basilar opacities, slightly greater on the right. Findings may be due to developing airspace process or atelectasis. 2. Small right pleural effusion and trace left pleural effusion. [facility]
[2018-06-09] MEDS ORDERED: AZITHROMYCIN INJ 500 MG in SODIUM CHLORIDE 0.9% 250 ML IV STA (15:27)
[2018-06-09] MEDS ORDERED: cefTRIAXone 1 GM VIAL IVP STA (15:27)
[2018-06-09] MEDS ORDERED: SODIUM CHLORIDE FLUSH 0.9% 10 ML SYRINGE IVP PRN (17:34)
[2018-06-09] MEDS ORDERED: ACETAMINOPHEN 325 MG TABLET PO PRN (17:34)
[2018-06-09] MEDS ORDERED: ONDANSETRON 4 MG/2 ML VIAL IVP PRN (17:34)
[2018-06-09] MEDS ORDERED: FUROSEMIDE 40 MG TABLET PO PRN (17:41)
[2018-06-09] MEDS ORDERED: NITROGLYCERIN SL 0.4 MG TABLET SL PRN (17:41)
--- NOTE | 2018-06-09 17:43 | HISTORY & PHYSICAL EXAMINATION ---
Chief Complaint - Chief Complaint Chief Complaint: pre-syncope History of Present Illness - History of Present Illness HPI Comment/Other: Mr. Dobbins is a 67-year-old male with a complex medical history. Pt had a usual health until he had an elective cholecystectomy on 08/10/17. ON 08/15/17, he developed fever, shortness of breath, chest pain and malaise. He was found to nonhealing ulcer around site of his laparoscopic cholecystectomy and bacteremia with MSSA. A BEATRIZ was negative for endocarditis. 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 He was discharged with cefazolin for home infusion, then he developed a purple rash over his lower extremities, and readmission to [facility]. The Biopsy reveals leukocytoclastic vasculitis, and transferred to [place] for cardiothoracic surgical evaluation and treatment. At [place] no intervention was done. Pt state he has been spending most of recent time at hospital. Pt presents to the emergency department today for pre-syncopal. Pt report, in today morning, when he got up out of bed and walk to the bathroom, on the way to the bathroom he felt lightheaded dizzy and then passed out. His daughter immediately woke up and found him awake on the floor. Pt report it was only a few second he feel fainting but he report he did not lost consciousness. He report he did not have injury. pt report he lost 60 pound in recent months. He always feels tired. he passed out couple times before. He denies fever but feel chill all the time. His daughter report his father oral temperature usually runs at lower level. Pt denies chest pain or palpitations. In ER, pt's BP run low at 85/65, temperature at 36.3. Pt has slightly elevated WBC at 11.8. CXR indicates bilateral basilar airspace process and small right pleural effusion and trace left pleural effusion. History - Past Medical History Cardiovascular: reports: None Respiratory: reports: None Endocrine/Autoimmune: reports: None GI: reports: GERD : reports: Kidney stones Psych: reports: Anxiety, Claustrophobia Musculoskeletal: reports: Osteoarthritis, Rheumatoid arthritis, Osteoporosis, Fatigue, Chronic back pain Derm: reports: None MRSA Hx?: Yes - Past Surgical History General: reports: Cholecystectomy Ortho: reports: Other - Family & Social History Family History: Mother: , Cancer, Father: Alive and Well, CAD, CVA/TIA Family History Comment/Other: pt state his mother from skin cancer, his father is 91-yrs old with right side stroke and CAD, but he still drive his car to take care of himself. he had two young daughter with him and living [facility]. Living arrangement: At home Living Situation: With family - POLST Patient has POLST: No POLST Status: Full Code Meds/Allgy - Home Medications Home Medications: Ambulatory Orders Medication Instructions Recorded Confirmed Atorvastatin Calcium 40 mg PO DAILY 09/11/17 06/09/18 Nitroglycerin 0.4 mg SL PRN PRN 09/11/17 06/09/18 Aspirin [Aspirin EC] 81 mg PO DAILY 09/12/17 06/09/18 Furosemide 20 mg PO DAILY PRN 09/12/17 06/09/18 Metoprolol Succinate 25 mg PO BID 09/12/17 06/09/18 Clopidogrel Bisulfate [Clopidogrel] 75 mg PO DAILY 06/09/18 06/09/18 Ferrous Gluconate 324 mg PO BID 06/10/18 06/10/18 Ipratropium/Albuterol [Combivent 1 puffs INH QID 06/10/18 06/10/18 Respimat] - Allergies Allergies/Adverse Reactions: Allergies Allergy/AdvReac Type Severity Reaction Status Date / Time cefazolin Allergy Rash Verified 09/11/17 17:09 lorazepam Allergy Hallucinati Verified 09/11/17 14:06 ons nafcillin Allergy Rash Verified 09/11/17 17:13 amoxicillin AdvReac Unknown Verified 09/11/17 14:06 sulfamethoxazole AdvReac Itching Verified 08/05/17 02:19 [From Bactrim] trimethoprim [From Bactrim] AdvReac Itching Verified 08/05/17 02:19 Review of Systems - Constitutional Constitutional: reports: Fatigue, Weakness, Poor appetite, Weight loss. denies: Fever, Chills, Malaise, Diaphoresis, Night sweats, Weight gain - Eyes Eyes: denies: Pain, Irritation, Amaurosis, Blurred vision, Spots in vision, Field loss, Vision loss, Dipolpia - Ears, Nose & Throat Ears, Nose & Throat: denies: Ear pain, Hearing loss, Hearing aids, Tinnitus, Vertigo, Nasal pain, Nasal discharge, Nosebleeds, Nasal obstruction, Nasal congestion, Postnasal drainage, Dentures, Sore throat, Hoarseness, Mouth lesions, Bleeding gums - Cardiovascular Cariovascular: reports: Lightheadedness, Syncope, Exertional dyspnea. denies: I rregular heart rate, Palpitations, Chest pain, Edema, Decr. exercise tolerance - Respiratory Respiratory: reports: SOB with exertion. denies: Cough, Sputum production, Wheezing, Snoring, Hemoptysis, Orthopnea, SOB at rest, Apnea, Pleuritic pain - Gastrointestinal Gastrointestinal: denies: Abdominal pain, Abdominal distention, Constipation, Diarrhea, Change in bowel habits, Black stools, Bloody stools, Nausea, Vomiting, Bile emesis - Genitourinary Genitourinary: denies: Dysuria, Frequency, Urgency, Hematuria, Incontinence, Flank pain, Nocturia, Urethral discharge, Sexual dysfunction, Other - Musculoskeletal Musculoskeletal: denies: Muscle pain, Back pain, Muscle aches, Stiffness, Limited range of motion, Muscle weakness, Gout, Joint pain - Integumentary Integumentary: denies: Rash, Pruritis, Lesions, Dryness, Lumps, Acne, Pigment changes, Nail changes - Neurological Neurological: reports: General weakness. denies: Focal weakness, Headache, Dizziness, Numbness, Memory problems, Pre-existing deficit, Abnormal gait, Seizures, Incoordination, Slurred speech - Psychiatric Psychiatric: denies: Depression, Anxiety, Suicidal, Delusions, Hallucinations, Homicidal - Endocrine Endocrine: denies: Polyuria, Polydypsia, Polyphagia, Intolerance to cold - Hematologic/Lymphatic Hematologic/Lymphatic: denies: Anemia, Bruising, Petechiae, Blood clots, Lymphadenopathy, Bleeding tendencies Prior Level of Functionality: mainly bed bound, poor function level Exam - Vital Signs Reviewed Vital Signs: Yes Vital Signs: Vital Signs x48h Temp Pulse Resp BP Pulse Ox 06/09/18 17:20 94 17 94/78 99 06/09/18 15:00 91 17 85/70 L 99 06/09/18 14:30 91 17 85/65 L 99 06/09/18 13:00 95 16 99/70 100 06/09/18 12:54 36.3 C L 101 H 19 108/83 H 100 - Physical Exam General Appearance: positive: No acute distress, Alert. negative: Lethargic Eyes Bilateral: positive: Normal inspection, PERRL, No lid inflammation, Conjunctivae nml ENT: positive: ENT inspection nml, Pharynx nml, No signs of dehydration. negative: Purulent nasal drainage, Pharyngeal erythema, Oral lesions Neck: positive: Nml inspection, Thyroid nml, No JVD, Trachea midline. negative: Thyromegaly, Lymphadenopathy (R), Lymphadenopathy (L), Stiff neck, Swelling/bruising, Tracheal deviation Respiratory: positive: Chest non-tender, No respiratory distress, Breath sounds nml. negative: Wheezes, Rales, Rhonchi Cardiovascular: positive: Regular rate & rhythm, No murmur, No gallop. negative: Irregularly irregular, Extrasystoles, Tachycardia, Bradycardia, JVD present, Systolic murmur, Diastolic murmur Peripheral Pulses: positive: 2+ Abdomen: positive: Non-tender, No organomegaly, Nml bowel sounds, No distention. negative: Tenderness, Guarding, Rebound Back: positive: Nml inspection. negative: CVA tenderness (R), CVA tenderness (L) Skin: positive: Color nml, No rash, Warm, Dry. negative: Cyanosis, Diaphoresis, Pallor Extremities: positive: Non-tender, Full ROM, Nml appearance. negative: Calf tenderness, Joint swelling, Jayne's sign/cords Neurologic/Psychiatric: positive: Oriented x3, Sensation nml, Mood/affect nml, Weakness. negative: Sensory loss, Facial droop, Slurred/abnml speech, Depressed mood/affect Conclusion/Plan - Problem List (1) Syncope Conclusion/Plan: pt had ECHO on February, his EF 60-65%. Pt recently has an extensive complex medical history. will order ECHO, followup on tele, vital monitor order US of carotid, follow up Qualifiers: Syncope type: vasovagal syncope Qualified Code(s): R55 - Syncope and collapse (2) Pneumonia Conclusion/Plan: CXR indicate pneumonia, and elevated WBC, bed-bound, physical deconditioning treat with antibiotics with Levoquin and vancomycin follow up blood culture IVF of NS vital, tele monitor Qualifiers: Pneumonia type: due to unspecified organism Laterality: bilateral Lung location: lower lobe of lung Qualified Code(s): J18.1 - Lobar pneumonia, unspecified organism (3) Hypotension Conclusion/Plan: pt has Metoprolol but pt has HR is around 90-100, so difficult to reduce BP meds IVF of NS gently for profusion, vital monitor Q4H Qualifiers: Hypotension type: unspecified hypotension type Qualified Code(s): I95.9 - Hypotension, unspecified (4) Anemia Conclusion/Plan: pt has HGB 10.1, MCV 74. pt report he tool iron pill at home. pt appear pale, and weakness, and lightheaded with pre-syncope. pt denies GI bleeding closely monitor H&H Iron study, will follow up, will consider of IV of iron, and transfusion of blood PRN (5) Hyponatremia Conclusion/Plan: Na 129 today, it seems hypovolume with hyponatremia. pt appears dehydration IVF of NS check lab to monitor (6) Weakness generalized Conclusion/Plan: pt appear weakness, difficult to ambulate will consider PT/OT afte pt is stable (7) Physical deconditioning Conclusion/Plan: over all, pt is very weakness, loss of appetite, low blood pressure, and hypothermia, with complex medical history will check TSH, and morning cortisol will discuss with pt for care goal, if consideration of palliative care first. (8) DVT prophylaxis Conclusion/Plan: SCD and lovenox (9) Full code status Conclusion/Plan: pt request full code - Lab Results Fish Bones: 06/10/18 03:00 06/10/18 03:00 Core Measures - Anticipated LOS I expect patient to be DC'd or transferred within 96 hours.: Yes - DVT/VTE - Prophylaxis VTE/DVT Device ordered at admit?: Yes VTE/DVT Prophylaxis med ordered at admit?: Yes
[2018-06-09] MEDS ORDERED: SODIUM CHLORIDE 0.9% 1,000 ML IV SCH ×2 (18:00)
[2018-06-09 19:03] LABS: FERRITIN 326.4 ng/mL (23.9-336.2)
[2018-06-09 19:05] LABS: % IRON SATURATION 11 % (20-50); IRON 16 ug/dL (45-182); TOTAL IRON BINDING CAPACITY 147 ug/dL (250-450); TRANSFERRIN 105 mg/dL (180-329)
[2018-06-09 19:08] LABS: BILIRUBIN,URINE NEGATIVE (NEGATIVE); GLUCOSE, URINE (UA) NEGATIVE (NEGATIVE); KETONES,URINE (UA) NEGATIVE (NEGATIVE); LEUKOCYTE ESTERASE, URINE NEGATIVE (NEGATIVE); NITRITE,URINE NEGATIVE (NEGATIVE); OCCULT BLOOD,URINE LARGE (NEGATIVE); PROTEIN,URINE 30 mg/dL (NEGATIVE); UROBILINOGEN,URINE 0.2 (NORMAL) E.U./dL (NORMAL)
[2018-06-09 19:18] LABS: CLARITY,URINE CLEAR (CLEAR)
[2018-06-09 19:30] LABS: BACTERIA,URINE None Seen /HPF (None Seen); MUCUS,URINE Moderate Strands; SQUAMOUS EPITHELIAL CELL,UR NONE SEEN (<= Few)
[2018-06-09] MEDS ORDERED: CEFEPIME 2 GM in SODIUM CHLORIDE 0.9% MINIBAG 100 ML IV SCH (21:00)
[2018-06-09] MEDS ORDERED: levoFLOXacin 750 MG/150 ML 750 MG/150 ML BAG IV SCH (21:00)
[2018-06-09 21:15] LABS: MEAN RETIC VALUE 94.5; RED BLOOD COUNT 3.5 10^6/uL (4.70-6.10)
[2018-06-09] MEDS: FAMOTIDINE 20 MG TABLET PO SCH (21:51)
[2018-06-09] MEDS: METOPROLOL SUCCINATE 25 MG TABLET PO SCH (21:52)
[2018-06-09] MEDS: ATORVASTATIN 40 MG TABLET PO SCH (22:15)
[2018-06-10] MEDS: SODIUM CHLORIDE FLUSH 0.9% 10 ML SYRINGE IVP SCH ×3 (01:50→18:02)
[2018-06-10 03:05] LABS: BASOPHILS # (AUTO) 0.1 10^3/uL (0.0-0.1); BASOPHILS % (AUTO) 0.6 %; EOSINOPHILS % (AUTO) 0.5 %; HGB - HEMOGLOBIN 8.8 g/dL (14.0-18.0); LYMPHOCYTES # (AUTO) 0.8 10^3/uL (1.5-3.5); LYMPHOCYTES % (AUTO) 8.7 %; MEAN CORPUSCULAR HEMOGLOBIN 24.9 pg (27.0-31.0); MEAN CORPUSCULAR HGB CONC 33.3 g/dL (32.0-36.0); MEAN CORPUSCULAR VOLUME 74.6 fL (80.0-94.0); MEAN PLATELET VOLUME 7.8 fL (7.4-11.4); MONOCYTES # (AUTO) 0.8 10^3/uL (0.0-1.0); MONOCYTES % (AUTO) 9.3 %; NEUTROPHILS # (AUTO) 7.2 10^3/uL (1.5-6.6); NEUTROPHILS % (AUTO) 80.9 %; PLT - PLATELET COUNT 172 10^3/uL (130-450); RED BLOOD COUNT 3.53 10^6/uL (4.70-6.10); RED CELL DISTRIBUTION WIDTH 18.9 % (12.0-15.0); WHITE BLOOD COUNT 8.9 x10^3/uL (4.8-10.8)
[2018-06-10 03:18] LABS: ALBUMIN 2.7 g/dL (3.2-5.5); ALBUMIN/GLOBULIN RATIO 0.7 (1.0-2.2); BILIRUBIN,TOTAL 1.1 mg/dL (0.2-1.0); CALCIUM 7.5 mg/dL (8.5-10.3); CREATININE 0.8 mg/dL (0.6-1.2); TOTAL PROTEIN 6.6 g/dL (6.7-8.2)
[2018-06-10] MEDS ORDERED: VANCOMYCIN INJ 1 GM in SODIUM CHLORIDE 0.9% 250 ML IV SCH (07:00)
[2018-06-10] MEDS ORDERED: FERROUS SULFATE 325 MG TABLET PO SCH ×2 (08:00→09:00)
[2018-06-10] MEDS ORDERED: POTASSIUM CHLORIDE 20 MEQ TABLET PO ONE (08:13)
[2018-06-10] MEDS ORDERED: ATORVASTATIN 40 MG TABLET PO SCH (09:00)
[2018-06-10] MEDS ORDERED: AZITHROMYCIN INJ 500 MG in SODIUM CHLORIDE 0.9% 250 ML IV SCH (09:00)
[2018-06-10] MEDS ORDERED: cefTRIAXone 1 GM VIAL IVP SCH (09:00)
[2018-06-10] MEDS ORDERED: FERRIC GLUCONATE 62.5 MG/5 ML VIAL IVP ONE (09:16)
[2018-06-10] MEDS ORDERED: VANCOMYCIN 500 MG VIAL ONE (09:21)
[2018-06-10] MEDS ORDERED: VANCOMYCIN 1 GM VIAL ONE ×2 (09:21→20:47)
[2018-06-10] MEDS: VANCOMYCIN INJ 1 GM, VANCOMYCIN INJ 500 MG in SODIUM CHLORIDE 0.9% 500 ML IV SCH ×2 (10:14→20:59)
[2018-06-10] MEDS: CLOPIDOGREL 75 MG TABLET PO SCH (10:24)
[2018-06-10] MEDS: ASPIRIN EC 81 MG TABLET PO SCH (10:24)
[2018-06-10] MEDS: METOPROLOL SUCCINATE 25 MG TABLET PO SCH ×2 (10:24→20:58)
[2018-06-10] MEDS: FAMOTIDINE 20 MG TABLET PO SCH ×2 (10:25→21:03)
[2018-06-10] MEDS: ENOXAPARIN 40 MG/0.4 ML SYRINGE SUBQ SCH (10:27)
[2018-06-10] MEDS: POLYETHYLENE GLYCOL 3350 17 GM PACKET PO SCH (10:30)
[2018-06-10] MEDS ORDERED: FERRIC GLUCONATE 125 MG in SODIUM CHLORIDE 0.9% 100ML 100 ML IV ONE (11:00)
[2018-06-10] MEDS ORDERED: IPRATROPIUM/ALBUTEROL 3 ML NEB INH PRN (11:14)
[2018-06-10] MEDS: SODIUM CHLORIDE 0.9% 1,000 ML IV SCH ×2 (13:02→13:19)
--- NOTE | 2018-06-10 14:10 | Ultrasound Report ---
Reason: syncope Procedure Date: 06/10/2018 Accession Number: [id number] / [id number] Procedure: US - Carotid Doppler Complete CPT Code: FULL RESULT: EXAM: BILATERAL CAROTID AND VERTEBRAL ARTERY DUPLEX DOPPLER ULTRASOUND: EXAM DATE: 06/10/2018 12:04 PM CLINICAL HISTORY: Syncope. COMPARISON: None. TECHNIQUE: Grayscale imaging, color Doppler, and duplex spectral Doppler were used to evaluate the carotid and vertebral arteries bilaterally. Static images were obtained. FINDINGS: Mild bilateral atherosclerotic plaquing primarily at the carotid bulbs. Normal antegrade flow is present in bilateral vertebral arteries. VELOCITIES (cm/sec): Right CCA mid: PSV 71 cm/sec CCA dist: PSV 58 cm/sec ICA prox: PSV 46 cm/sec, EDV 15 cm/sec ICA mid: PSV 73 cm/sec, EDV 25 cm/sec ICA dist: PSV 77 cm/sec, EDV 24 cm/sec ECA: PSV 78 cm/sec Vert: PSV 49 cm/sec ICA/CCA: 1.32 Left CCA mid: PSV 73 cm/sec CCA dist: PSV 78 cm/sec ICA prox: PSV 66 cm/sec, EDV 25 cm/sec ICA mid: PSV 63 cm/sec, EDV 18 cm/sec ICA dist: PSV 63 cm/sec, EDV 25 cm/sec ECA: PSV 72 cm/sec Vert: PSV 37 cm/sec ICA/CCA: 0.84 ICA diameter stenosis: Right: <50% by velocity and <70% by NASCET criteria. Left: <50% by velocity and <70% by NASCET criteria. IMPRESSION: 1. Mild bilateral carotid artery plaquing. 2. In the right carotid artery there are no elevated carotid artery velocities to suggest hemodynamically significant stenosis. 3. In the left carotid artery there are no elevated carotid artery velocities to suggest hemodynamically significant stenosis. 4. Normal antegrade flow is present in bilateral vertebral arteries. General Recommendations: Stenosis =50% ICA - Follow-up ultrasound 6-12 months Stenosis <50% ICA - High Risk Patient with plaque - Follow-up ultrasound 1-2 years Normal Study but High Risk Patient - Follow-up ultrasound 3-5 years Management recommendations and diagnostic criteria are based on current IAC endorsed standards in Carotid Artery Stenosis: Grayscale and Doppler Ultrasound Diagnosis. Validated velocity measurements with angiographic measurements and velocity criteria are extrapolated from diameter data as defined by the Society of Radiologists in Ultrasound Consensus Conference Radiology 2003; 229;340-346. RADIA
--- NOTE | 2018-06-10 14:29 | PROVIDER PROGRESS NOTE ---
Subjective - Prog Note Date Prog Note Date: 06/10/18 - Subjective Pt reports feeling: Improved Subjective: pt report he did feel better today, more energetic, no chest pain, palpitation, fever, chill. Current Medications - Current Medications Current Medications: Active Medications Acetaminophen (Tylenol) 650 mg PO Q4HR PRN PRN Reason: Pain 1 to 4 Albuterol/Ipratropium (Duoneb) 3 ml INH RTQID PRN PRN Reason: Shortness of Air/Wheezing Aspirin (Ecotrin) 81 mg PO DAILY [facility] Last Admin: 06/10/18 10:24 Dose: 81 mg Atorvastatin Calcium (Lipitor) 40 mg PO 2100 [facility] Last Admin: 06/09/18 22:15 Dose: 40 mg Clopidogrel Bisulfate (Plavix) 75 mg PO DAILY [facility] Last Admin: 06/10/18 10:24 Dose: 75 mg Enoxaparin Sodium (Lovenox) 40 mg SUBQ DAILY [facility] Last Admin: 06/10/18 10:27 Dose: 40 mg Famotidine (Pepcid) 20 mg PO BID [facility] Last Admin: 06/10/18 10:25 Dose: Not Given Furosemide (Lasix) 20 mg PO DAILY PRN PRN Reason: EDEMA Levofloxacin (Levaquin 750 Mg/150 Ml) 750 mg in 150 mls @ 100 mls/hr IV Q24H [facility] Last Infusion: 06/09/18 23:48 Dose: Infused Vancomycin HCl 1 gm/Vancomycin HCl 500 mg/ Sodium Chloride 500 mls @ 250 mls/hr IV Q12H [facility] Last Infusion: 06/10/18 12:15 Dose: Infused Sodium Chloride (Normal Saline 0.9%) 1,000 mls @ 100 mls/hr IV .Q10H [facility] Stop: 06/10/18 22:59 Last Admin: 06/10/18 13:19 Dose: 100 mls/hr Sodium Chloride (Normal Saline 0.9%) 1,000 mls @ 100 mls/hr IV .Q10H [facility] Stop: 06/11/18 08:59 Metoprolol Succinate (Toprol Xl) 25 mg PO BID [facility] Last Admin: 06/10/18 10:24 Dose: 25 mg Nitroglycerin (Nitrostat) 0.4 mg SL PRN PRN PRN Reason: Chest Pain Ondansetron HCl (Zofran Inj) 4 mg IVP Q6HR PRN PRN Reason: Nausea / Vomiting Polyethylene Glycol (Miralax) 17 gm PO DAILY [facility] Last Admin: 06/10/18 10:30 Dose: Not Given Sodium Chloride (Normal Saline Flush 0.9%) 10 ml IVP PRN PRN PRN Reason: NEEDED PER PROVIDER ORDERS Sodium Chloride (Normal Saline Flush 0.9%) 10 ml IVP 0100,0900,1700 [facility] Last Admin: 06/10/18 10:30 Dose: Not Given Atorvastatin Calcium 40 mg PO DAILY 09/11/17 Nitroglycerin 0.4 mg SL PRN PRN 09/11/17 Aspirin [Aspirin EC] 81 mg PO DAILY 09/12/17 Furosemide 20 mg PO DAILY PRN 09/12/17 Metoprolol Succinate 25 mg PO BID 09/12/17 Clopidogrel Bisulfate [Clopidogrel] 75 mg PO DAILY 06/09/18 Ferrous Gluconate 324 mg PO BID 06/10/18 Ipratropium/Albuterol [Combivent Respimat] 1 puffs INH QID 06/10/18 Objective - Vital Signs/Intake & Output Reviewed Vital Signs: Yes Vital Signs: Vital Signs x48h Temp Pulse Resp BP Pulse Ox 06/10/18 13:00 36.6 C 102 H 18 100/70 98 06/10/18 07:59 36.5 C 101 H 18 85/59 L 96 Intake & Output: Intake & Output 06/07/18 06/08/18 06/09/18 06/10/18 23:59 23:59 23:59 23:59 Intake Total 3604.25 500 Output Total 300 Balance 3604.25 200 - Lab Results Fish Bones: 06/10/18 03:00 06/10/18 03:00 Other Labs: Lab Results x24hrs 06/10/18 06/10/18 06/10/18 Range/Units 03:00 03:00 03:00 WBC (4.8-10.8) x10^3/uL RBC (4.70-6.10) 10^6/uL Hgb (14.0-18.0) g/dL Hct (42.0-52.0) % MCV (80.0-94.0) fL MCH (27.0-31.0) pg MCHC (32.0-36.0) g/dL RDW (12.0-15.0) % Plt Count (130-450) 10^3/uL MPV (7.4-11.4) fL Reticulocyte % (Auto) (0.5-2.3) % Neut # (Auto) (1.5-6.6) 10^3/uL Lymph # (Auto) (1.5-3.5) 10^3/uL [place] # (Auto) (0.0-1.0) 10^3/uL Eos # (Auto) (0.0-0.7) 10^3/uL Baso # (Auto) (0.0-0.1) 10^3/uL Absolute Nucleated RBC x10^3/uL Nucleated RBC % /100WBC Absolute Retic (0.020-0.110) 10^6/uL Sodium 130 L (135-145) mmol/L Potassium 3.2 L (3.5-5.0) mmol/L Chloride 100 L (101-111) mmol/L Carbon Dioxide 21 (21-32) mmol/L Anion Gap 9.0 (6-13) BUN 14 (6-20) mg/dL Creatinine 0.8 (0.6-1.2) mg/dL Estimated GFR (MDRD) 97 (>89) Glucose 68 L (70-100) mg/dL Lactic Acid (0.5-2.2) mmol/L Calcium 7.5 L (8.5-10.3) mg/dL Magnesium 2.0 (1.7-2.8) mg/dL Iron (45-182) ug/dL TIBC (250-450) ug/dL % Saturation (20-50) % Transferrin (180-329) mg/dL Ferritin (23.9-336.2) ng/mL Total Bilirubin 1.1 H (0.2-1.0) mg/dL AST 39 (10-42) IU/L ALT 19 (10-60) IU/L Alkaline Phosphatase 55 (42-121) IU/L Lactate Dehydrogenase (91-225) IU/L Troponin I (<0.49) ng/mL Total Protein 6.6 L (6.7-8.2) g/dL Albumin 2.7 L (3.2-5.5) g/dL Globulin 3.9 (2.1-4.2) g/dL Albumin/Globulin Ratio 0.7 L (1.0-2.2) Vitamin B12 (180-914) pg/mL TSH 1.53 (0.34-5.60) uIU/mL Cortisol AM Sample 15.2 ug/dL Urine Color Urine Clarity (CLEAR) Urine pH (5.0-7.5) PH Ur Specific [place] (1.002-1.030) Urine Protein (NEGATIVE) mg/dL Urine Glucose (UA) (NEGATIVE) mg/dL Urine Ketones (NEGATIVE) mg/dL Urine Occult Blood (NEGATIVE) Urine Nitrite (NEGATIVE) Urine Bilirubin (NEGATIVE) Urine Urobilinogen (NORMAL) E.U./dL Ur Leukocyte Esterase (NEGATIVE) Urine RBC (0-5) /HPF Urine WBC (0-3) /HPF Ur Squamous Epith Cells (<= Few) Urine Bacteria (None Seen) /HPF Urine Mucus Ur Microscopic Review Urine Culture Comments 06/10/18 06/10/18 06/09/18 Range/Units 03:00 03:00 21:00 WBC 8.9 (4.8-10.8) x10^3/uL RBC 3.53 L 3.50 L (4.70-6.10) 10^6/uL Hgb 8.8 L (14.0-18.0) g/dL Hct 26.3 L (42.0-52.0) % MCV 74.6 L (80.0-94.0) fL MCH 24.9 L (27.0-31.0) pg MCHC 33.3 (32.0-36.0) g/dL RDW 18.9 H (12.0-15.0) % Plt Count 172 (130-450) 10^3/uL MPV 7.8 (7.4-11.4) fL Reticulocyte % (Auto) 1.00 (0.5-2.3) % Neut # (Auto) 7.2 H (1.5-6.6) 10^3/uL Lymph # (Auto) 0.8 L (1.5-3.5) 10^3/uL [place] # (Auto) 0.8 (0.0-1.0) 10^3/uL Eos # (Auto) 0.0 (0.0-0.7) 10^3/uL Baso # (Auto) 0.1 (0.0-0.1) 10^3/uL Absolute Nucleated RBC 0.00 x10^3/uL Nucleated RBC % 0.0 /100WBC Absolute Retic 0.035 (0.020-0.110) 10^6/uL Sodium (135-145) mmol/L Potassium (3.5-5.0) mmol/L Chloride (101-111) mmol/L Carbon Dioxide (21-32) mmol/L Anion Gap (6-13) BUN (6-20) mg/dL Creatinine (0.6-1.2) mg/dL Estimated GFR (MDRD) (>89) Glucose (70-100) mg/dL Lactic Acid (0.5-2.2) mmol/L Calcium (8.5-10.3) mg/dL Magnesium (1.7-2.8) mg/dL Iron (45-182) ug/dL TIBC (250-450) ug/dL % Saturation (20-50) % Transferrin (180-329) mg/dL Ferritin (23.9-336.2) ng/mL Total Bilirubin (0.2-1.0) mg/dL AST (10-42) IU/L ALT (10-60) IU/L Alkaline Phosphatase (42-121) IU/L Lactate Dehydrogenase (91-225) IU/L Troponin I 0.04 (<0.49) ng/mL Total Protein (6.7-8.2) g/dL Albumin (3.2-5.5) g/dL Globulin (2.1-4.2) g/dL Albumin/Globulin Ratio (1.0-2.2) Vitamin B12 (180-914) pg/mL TSH (0.34-5.60) uIU/mL Cortisol AM Sample ug/dL Urine Color Urine Clarity (CLEAR) Urine pH (5.0-7.5) PH Ur Specific [place] (1.002-1.030) Urine Protein (NEGATIVE) mg/dL Urine Glucose (UA) (NEGATIVE) mg/dL Urine Ketones (NEGATIVE) mg/dL Urine Occult Blood (NEGATIVE) Urine Nitrite (NEGATIVE) Urine Bilirubin (NEGATIVE) Urine Urobilinogen (NORMAL) E.U./dL Ur Leukocyte Esterase (NEGATIVE) Urine RBC (0-5) /HPF Urine WBC (0-3) /HPF Ur Squamous Epith Cells (<= Few) Urine Bacteria (None Seen) /HPF Urine Mucus Ur Microscopic Review Urine Culture Comments 06/09/18 06/09/18 06/09/18 Range/Units 21:00 18:50 15:13 WBC (4.8-10.8) x10^3/uL RBC (4.70-6.10) 10^6/uL Hgb (14.0-18.0) g/dL Hct (42.0-52.0) % MCV (80.0-94.0) fL MCH (27.0-31.0) pg MCHC (32.0-36.0) g/dL RDW (12.0-15.0) % Plt Count (130-450) 10^3/uL MPV (7.4-11.4) fL Reticulocyte % (Auto) (0.5-2.3) % Neut # (Auto) (1.5-6.6) 10^3/uL Lymph # (Auto) (1.5-3.5) 10^3/uL [place] # (Auto) (0.0-1.0) 10^3/uL Eos # (Auto) (0.0-0.7) 10^3/uL Baso # (Auto) (0.0-0.1) 10^3/uL Absolute Nucleated RBC x10^3/uL Nucleated RBC % /100WBC Absolute Retic (0.020-0.110) 10^6/uL Sodium (135-145) mmol/L Potassium (3.5-5.0) mmol/L Chloride (101-111) mmol/L Carbon Dioxide (21-32) mmol/L Anion Gap (6-13) BUN (6-20) mg/dL Creatinine (0.6-1.2) mg/dL Estimated GFR (MDRD) (>89) Glucose (70-100) mg/dL Lactic Acid (0.5-2.2) mmol/L Calcium (8.5-10.3) mg/dL Magnesium (1.7-2.8) mg/dL Iron (45-182) ug/dL TIBC (250-450) ug/dL % Saturation (20-50) % Transferrin (180-329) mg/dL Ferritin (23.9-336.2) ng/mL Total Bilirubin (0.2-1.0) mg/dL AST (10-42) IU/L ALT (10-60) IU/L Alkaline Phosphatase (42-121) IU/L Lactate Dehydrogenase 105 (91-225) IU/L Troponin I 0.04 (<0.49) ng/mL Total Protein (6.7-8.2) g/dL Albumin (3.2-5.5) g/dL Globulin (2.1-4.2) g/dL Albumin/Globulin Ratio (1.0-2.2) Vitamin B12 (180-914) pg/mL TSH (0.34-5.60) uIU/mL Cortisol AM Sample ug/dL Urine Color YELLOW Urine Clarity CLEAR (CLEAR) Urine pH 6.0 (5.0-7.5) PH Ur Specific [place] >=1.030 H (1.002-1.030) Urine Protein 30 H (NEGATIVE) mg/dL Urine Glucose (UA) NEGATIVE (NEGATIVE) mg/dL Urine Ketones NEGATIVE (NEGATIVE) mg/dL Urine Occult Blood LARGE H (NEGATIVE) Urine Nitrite NEGATIVE (NEGATIVE) Urine Bilirubin NEGATIVE (NEGATIVE) Urine Urobilinogen 0.2 (NORMAL) (NORMAL) E.U./dL Ur Leukocyte Esterase NEGATIVE (NEGATIVE) Urine RBC 6-10 H (0-5) /HPF Urine WBC 0-3 (0-3) /HPF Ur Squamous Epith Cells NONE SEEN (<= Few) Urine Bacteria None Seen (None Seen) /HPF Urine Mucus Moderate Strands Ur Microscopic Review INDICATED Urine Culture Comments NOT INDICATED 06/09/18 06/09/18 06/09/18 Range/Units 15:13 15:13 15:13 WBC (4.8-10.8) x10^3/uL RBC (4.70-6.10) 10^6/uL Hgb (14.0-18.0) g/dL Hct (42.0-52.0) % MCV (80.0-94.0) fL MCH (27.0-31.0) pg MCHC (32.0-36.0) g/dL RDW (12.0-15.0) % Plt Count (130-450) 10^3/uL MPV (7.4-11.4) fL Reticulocyte % (Auto) (0.5-2.3) % Neut # (Auto) (1.5-6.6) 10^3/uL Lymph # (Auto) (1.5-3.5) 10^3/uL [place] # (Auto) (0.0-1.0) 10^3/uL Eos # (Auto) (0.0-0.7) 10^3/uL Baso # (Auto) (0.0-0.1) 10^3/uL Absolute Nucleated RBC x10^3/uL Nucleated RBC % /100WBC Absolute Retic (0.020-0.110) 10^6/uL Sodium (135-145) mmol/L Potassium (3.5-5.0) mmol/L Chloride (101-111) mmol/L Carbon Dioxide (21-32) mmol/L Anion Gap (6-13) BUN (6-20) mg/dL Creatinine (0.6-1.2) mg/dL Estimated GFR (MDRD) (>89) Glucose (70-100) mg/dL Lactic Acid 1.1 (0.5-2.2) mmol/L Calcium (8.5-10.3) mg/dL Magnesium (1.7-2.8) mg/dL Iron 16 L (45-182) ug/dL TIBC 147 L (250-450) ug/dL % Saturation 11 L (20-50) % Transferrin 105 L (180-329) mg/dL Ferritin 326.4 (23.9-336.2) ng/mL Total Bilirubin (0.2-1.0) mg/dL AST (10-42) IU/L ALT (10-60) IU/L Alkaline Phosphatase (42-121) IU/L Lactate Dehydrogenase (91-225) IU/L Troponin I (<0.49) ng/mL Total Protein (6.7-8.2) g/dL Albumin (3.2-5.5) g/dL Globulin (2.1-4.2) g/dL Albumin/Globulin Ratio (1.0-2.2) Vitamin B12 714 (180-914) pg/mL TSH (0.34-5.60) uIU/mL Cortisol AM Sample ug/dL Urine Color Urine Clarity (CLEAR) Urine pH (5.0-7.5) PH Ur Specific [place] (1.002-1.030) Urine Protein (NEGATIVE) mg/dL Urine Glucose (UA) (NEGATIVE) mg/dL Urine Ketones (NEGATIVE) mg/dL Urine Occult Blood (NEGATIVE) Urine Nitrite (NEGATIVE) Urine Bilirubin (NEGATIVE) Urine Urobilinogen (NORMAL) E.U./dL Ur Leukocyte Esterase (NEGATIVE) Urine RBC (0-5) /HPF Urine WBC (0-3) /HPF Ur Squamous Epith Cells (<= Few) Urine Bacteria (None Seen) /HPF Urine Mucus Ur Microscopic Review Urine Culture Comments 06/09/18 Range/Units 15:13 WBC (4.8-10.8) x10^3/uL RBC (4.70-6.10) 10^6/uL Hgb (14.0-18.0) g/dL Hct (42.0-52.0) % MCV (80.0-94.0) fL MCH (27.0-31.0) pg MCHC (32.0-36.0) g/dL RDW (12.0-15.0) % Plt Count (130-450) 10^3/uL MPV (7.4-11.4) fL Reticulocyte % (Auto) (0.5-2.3) % Neut # (Auto) (1.5-6.6) 10^3/uL Lymph # (Auto) (1.5-3.5) 10^3/uL [place] # (Auto) (0.0-1.0) 10^3/uL Eos # (Auto) (0.0-0.7) 10^3/uL Baso # (Auto) (0.0-0.1) 10^3/uL Absolute Nucleated RBC x10^3/uL Nucleated RBC % /100WBC Absolute Retic (0.020-0.110) 10^6/uL Sodium (135-145) mmol/L Potassium (3.5-5.0) mmol/L Chloride (101-111) mmol/L Carbon Dioxide (21-32) mmol/L Anion Gap (6-13) BUN (6-20) mg/dL Creatinine (0.6-1.2) mg/dL Estimated GFR (MDRD) (>89) Glucose (70-100) mg/dL Lactic Acid (0.5-2.2) mmol/L Calcium (8.5-10.3) mg/dL Magnesium (1.7-2.8) mg/dL Iron (45-182) ug/dL TIBC (250-450) ug/dL % Saturation (20-50) % Transferrin (180-329) mg/dL Ferritin (23.9-336.2) ng/mL Total Bilirubin (0.2-1.0) mg/dL AST (10-42) IU/L ALT (10-60) IU/L Alkaline Phosphatase (42-121) IU/L Lactate Dehydrogenase (91-225) IU/L Troponin I 0.04 (<0.49) ng/mL Total Protein (6.7-8.2) g/dL Albumin (3.2-5.5) g/dL Globulin (2.1-4.2) g/dL Albumin/Globulin Ratio (1.0-2.2) Vitamin B12 (180-914) pg/mL TSH (0.34-5.60) uIU/mL Cortisol AM Sample ug/dL Urine Color Urine Clarity (CLEAR) Urine pH (5.0-7.5) PH Ur Specific [place] (1.002-1.030) Urine Protein (NEGATIVE) mg/dL Urine Glucose (UA) (NEGATIVE) mg/dL Urine Ketones (NEGATIVE) mg/dL Urine Occult Blood (NEGATIVE) Urine Nitrite (NEGATIVE) Urine Bilirubin (NEGATIVE) Urine Urobilinogen (NORMAL) E.U./dL Ur Leukocyte Esterase (NEGATIVE) Urine RBC (0-5) /HPF Urine WBC (0-3) /HPF Ur Squamous Epith Cells (<= Few) Urine Bacteria (None Seen) /HPF Urine Mucus Ur Microscopic Review Urine Culture Comments Assessment/Plan - Problem List (1) Syncope Impression: Conclusion/Plan: 06/10 pt feel better, today ECHO reveals pt has similar normal EF and unremarkab le ECHO. US of Carotid indicate unremarkable. pt has unremarkable EKG as his base, and pt state he did not have seizure or hx of seizure. unknown etiology, one explain, pt has physical deconditioning, weakness. will order orthostatic BP pt had ECHO on February, his EF 60-65%. Pt recently has an extensive complex medical history. will order ECHO, followup on tele, vital monitor order US of carotid, follow up (2) Pneumonia Conclusion/Plan: 06/10 continue treat with antibiotics. pt's WBC is down to normal, 98% sats on room air CXR indicate pneumonia, and elevated WBC, bed-bound, physical deconditioning treat with antibiotics with Levoquin and vancomycin follow up blood culture IVF of NS vital, tele monitor (3) Hypotension Conclusion/Plan: improved SBP at 102 continue IVF of NS continue vital and tele monitor pt has Metoprolol but pt has HR is around 90-100, so difficult to reduce BP meds IVF of NS gently for profusion, vital monitor Q4H (4) Anemia Conclusion/Plan: iron study reveal iron deficiency IV of iron ferricit daily lab monitor pt has HGB 10.1, MCV 74. pt report he tool iron pill at home. pt appear pale, and weakness, and lightheaded with pre-syncope. pt denies GI bleeding closely monitor H&H Iron study, will follow up, will consider of IV of iron, and transfusion of blood PRN (5) Hyponatremia Conclusion/Plan: Na is 130, will continue IVF of NS daily lab monitor Na 129 today, it seems hypovolume with hyponatremia. pt appears dehydration IVF of NS check lab to monitor (6) Weakness generalized Conclusion/Plan: order PT/OT, will follow up pt appear weakness, difficult to ambulate will consider PT/OT afte pt is stable (7) Physical deconditioning pt has complex hx, weakness, loss of appetite, loss of weight, hypothermic body temperature. check morning cortisol and TSH (8) bacteremia blood culture in both tube reveals gram positive cocci, sensitivity study is pending Lovequin and Vancomycin gently IVF check lactic acid Qualifiers: Syncope type: vasovagal syncope Qualified Code(s): R55 - Syncope and collapse (2) Pneumonia Qualifiers: Pneumonia type: due to unspecified organism Laterality: bilateral Lung location: lower lobe of lung Qualified Code(s): J18.1 - Lobar pneumonia, unspecified organism (3) Hypotension Qualifiers: Hypotension type: unspecified hypotension type Qualified Code(s): I95.9 - Hypotension, unspecified
[2018-06-10] MEDS: levoFLOXacin 750 MG/150 ML 750 MG/150 ML BAG IV SCH (19:09)
[2018-06-10] MEDS: ATORVASTATIN 40 MG TABLET PO SCH (20:58)
[2018-06-10] MEDS ORDERED: SODIUM CHLORIDE 0.9% 1,000 ML IV SCH (23:00)
[2018-06-11] MEDS: SODIUM CHLORIDE FLUSH 0.9% 10 ML SYRINGE IVP SCH ×4 (02:10→23:52)
[2018-06-11 05:07] LABS: BASOPHILS # (AUTO) 0.1 10^3/uL (0.0-0.1); BASOPHILS % (AUTO) 0.8 %; EOSINOPHILS # (AUTO) 0.1 10^3/uL (0.0-0.7); EOSINOPHILS % (AUTO) 0.5 %; HGB - HEMOGLOBIN 9.2 g/dL (14.0-18.0); LYMPHOCYTES # (AUTO) 1.1 10^3/uL (1.5-3.5); LYMPHOCYTES % (AUTO) 9.8 %; MEAN CORPUSCULAR HEMOGLOBIN 24.9 pg (27.0-31.0); MEAN CORPUSCULAR HGB CONC 33.1 g/dL (32.0-36.0); MEAN CORPUSCULAR VOLUME 75.1 fL (80.0-94.0); MONOCYTES # (AUTO) 1.3 10^3/uL (0.0-1.0); MONOCYTES % (AUTO) 11.5 %; NEUTROPHILS # (AUTO) 8.7 10^3/uL (1.5-6.6); NEUTROPHILS % (AUTO) 77.4 %; PLT - PLATELET COUNT 206 10^3/uL (130-450); RED BLOOD COUNT 3.68 10^6/uL (4.70-6.10); RED CELL DISTRIBUTION WIDTH 18.6 % (12.0-15.0); WHITE BLOOD COUNT 11.3 x10^3/uL (4.8-10.8)
[2018-06-11 05:20] LABS: ALBUMIN 2.7 g/dL (3.2-5.5); ALBUMIN/GLOBULIN RATIO 0.7 (1.0-2.2); BILIRUBIN,TOTAL 1.2 mg/dL (0.2-1.0); CALCIUM 7.9 mg/dL (8.5-10.3); CREATININE 0.8 mg/dL (0.6-1.2); TOTAL PROTEIN 6.7 g/dL (6.7-8.2)
[2018-06-11] MEDS ORDERED: POTASSIUM CHLORIDE 20 MEQ TABLET PO ONE (07:32)
[2018-06-11] MEDS: ASPIRIN EC 81 MG TABLET PO SCH (09:24)
[2018-06-11] MEDS: FERROUS GLUCONATE 324 MG TABLET PO SCH ×2 (09:24→17:11)
[2018-06-11] MEDS: POLYETHYLENE GLYCOL 3350 17 GM PACKET PO SCH (09:24)
[2018-06-11] MEDS: CLOPIDOGREL 75 MG TABLET PO SCH (09:24)
[2018-06-11] MEDS: ENOXAPARIN 40 MG/0.4 ML SYRINGE SUBQ SCH (09:24)
[2018-06-11] MEDS: VANCOMYCIN INJ 1 GM, VANCOMYCIN INJ 500 MG in SODIUM CHLORIDE 0.9% 500 ML IV SCH ×2 (09:54→20:34)
[2018-06-11] MEDS: FAMOTIDINE 20 MG TABLET PO SCH (09:55)
[2018-06-11] MEDS: METOPROLOL SUCCINATE 25 MG TABLET PO SCH (09:56)
--- NOTE | 2018-06-11 14:06 | PROVIDER PROGRESS NOTE ---
Subjective - Prog Note Date Prog Note Date: 06/11/18 - Subjective Pt reports feeling: Improved Subjective: pt feel better than before, more energetic. he denies fever, chill, CP, SOB. pt's blood culture and sensitivity study are pending. Current Medications - Current Medications Current Medications: Active Medications Acetaminophen (Tylenol) 650 mg PO Q4HR PRN PRN Reason: Pain 1 to 4 Last Admin: 06/11/18 11:46 Dose: 650 mg Albuterol/Ipratropium (Duoneb) 3 ml INH RTQID PRN PRN Reason: Shortness of Air/Wheezing Aspirin (Ecotrin) 81 mg PO DAILY [facility] Last Admin: 06/11/18 09:24 Dose: 81 mg Atorvastatin Calcium (Lipitor) 40 mg PO 2100 [facility] Last Admin: 06/10/18 20:58 Dose: 40 mg Clopidogrel Bisulfate (Plavix) 75 mg PO DAILY [facility] Last Admin: 06/11/18 09:24 Dose: 75 mg Enoxaparin Sodium (Lovenox) 40 mg SUBQ DAILY [facility] Last Admin: 06/11/18 09:24 Dose: 40 mg Famotidine (Pepcid) 20 mg PO DAILY [facility] Last Admin: 06/11/18 09:55 Dose: Not Given Ferrous Gluconate (Fergon) 324 mg PO BIDWM [facility] Last Admin: 06/11/18 09:24 Dose: 324 mg Furosemide (Lasix) 20 mg PO DAILY PRN PRN Reason: EDEMA Vancomycin HCl 1 gm/Vancomycin HCl 500 mg/ Sodium Chloride 500 mls @ 250 mls/hr IV Q12H [facility] Last Admin: 06/11/18 09:54 Dose: 250 mls/hr Levofloxacin (Levaquin 750 Mg/150 Ml) 750 mg in 150 mls @ 100 mls/hr IV Q24H [facility] Last Infusion: 06/10/18 20:40 Dose: Infused Metoprolol Succinate (Toprol Xl) 25 mg PO DAILY [facility] Last Admin: 06/11/18 09:56 Dose: 25 mg Nitroglycerin (Nitrostat) 0.4 mg SL PRN PRN PRN Reason: Chest Pain Ondansetron HCl (Zofran Inj) 4 mg IVP Q6HR PRN PRN Reason: Nausea / Vomiting Polyethylene Glycol (Miralax) 17 gm PO DAILY [facility] Last Admin: 06/11/18 09:24 Dose: Not Given Sodium Chloride (Normal Saline Flush 0.9%) 10 ml IVP PRN PRN PRN Reason: NEEDED PER PROVIDER ORDERS Sodium Chloride (Normal Saline Flush 0.9%) 10 ml IVP 0100,0900,1700 JUAN ALBERTO Last Admin: 06/11/18 09:24 Dose: Not Given Atorvastatin Calcium 40 mg PO DAILY 09/11/17 Nitroglycerin 0.4 mg SL PRN PRN 09/11/17 Aspirin [Aspirin EC] 81 mg PO DAILY 09/12/17 Furosemide 20 mg PO DAILY PRN 09/12/17 Metoprolol Succinate 25 mg PO DAILY 09/12/17 Clopidogrel Bisulfate [Clopidogrel] 75 mg PO DAILY 06/09/18 Acetaminophen [Tylenol] 162.5 mg PO Q6H PRN 06/10/18 Ferrous Gluconate 324 mg PO BID 06/10/18 Objective - Vital Signs/Intake & Output Reviewed Vital Signs: Yes Vital Signs: Vital Signs x48h Temp Pulse Pulse Pulse Pulse Pulse Pulse 06/11/18 11:07 36.3 C L 105 H 06/11/18 10:30 118 H 115 H 102 H 06/11/18 10:03 100 06/11/18 09:00 118 H 115 H 105 H 06/11/18 08:22 36.3 C L 94 Resp BP BP BP BP BP BP 06/11/18 11:07 16 109/77 06/11/18 10:30 100/50 L 113/84 H 109/77 06/11/18 10:03 99/66 06/11/18 09:00 100/80 113/84 H 109/77 06/11/18 08:22 16 96/65 Pulse Ox 06/11/18 11:07 97 06/11/18 10:30 06/11/18 10:03 06/11/18 09:00 06/11/18 08:22 97 Intake & Output: Intake & Output 06/08/18 06/09/18 06/10/18 06/11/18 23:59 23:59 23:59 23:59 Intake Total 3604.25 3330.75 465 Output Total 300 Balance 3604.25 3030.75 465 - Objective General Appearance: positive: No acute distress, Alert. negative: Lethargic Eyes Bilateral: positive: Normal inspection, PERRL, No lid inflammation, Conjunctivae nml ENT: positive: ENT inspection nml, Pharynx nml, No signs of dehydration. negative: Purulent nasal drainage, Pharyngeal erythema, Oral lesions Neck: positive: Nml inspection, Thyroid nml, No JVD, Trachea midline. negative: Thyromegaly, Lymphadenopathy (R), Lymphadenopathy (L), Stiff neck, Carotid bruit, Swelling/bruising, Tracheal deviation Respiratory: positive: Chest non-tender, No respiratory distress, Breath sounds nml. negative: Wheezes, Rales, Rhonchi Cardiovascular: positive: Regular rate & rhythm, No murmur, No gallop, Irregularly irregular. negative: Extrasystoles, Tachycardia, Bradycardia, JVD present, Systolic murmur, Diastolic murmur Peripheral Pulses: 2+ Radial (R), 2+ Radial (L), 2+ Dorsalis pedis (R), 2+ Dorsalis pedis (L) Abdomen: positive: Non-tender, No organomegaly, Nml bowel sounds, No distention. negative: Tenderness, Guarding, Rebound Back: positive: Nml inspection. negative: CVA tenderness (R), CVA tenderness (L) Skin: positive: Color nml, No rash, Warm, Dry. negative: Cyanosis, Diaphoresis, Pallor Extremities: positive: Non-tender, Full ROM, Nml appearance. negative: Calf tenderness, Joint swelling, Jayne's sign/cords Neurologic/Psychiatric: positive: Motor nml, Sensation nml, Mood/affect nml. negative: Weakness, Sensory loss, Facial droop, Slurred/abnml speech, Depressed mood/affect - Lab Results Fish Bones: 06/11/18 04:45 06/11/18 04:45 Other Labs: Lab Results x24hrs 06/11/18 06/11/18 Range/Units 04:45 04:45 WBC 11.3 H (4.8-10.8) x10^3/uL RBC 3.68 L (4.70-6.10) 10^6/uL Hgb 9.2 L (14.0-18.0) g/dL Hct 27.6 L (42.0-52.0) % MCV 75.1 L (80.0-94.0) fL MCH 24.9 L (27.0-31.0) pg MCHC 33.1 (32.0-36.0) g/dL RDW 18.6 H (12.0-15.0) % Plt Count 206 (130-450) 10^3/uL MPV 8.0 (7.4-11.4) fL Neut # (Auto) 8.7 H (1.5-6.6) 10^3/uL Lymph # (Auto) 1.1 L (1.5-3.5) 10^3/uL [place] # (Auto) 1.3 H (0.0-1.0) 10^3/uL Eos # (Auto) 0.1 (0.0-0.7) 10^3/uL Baso # (Auto) 0.1 (0.0-0.1) 10^3/uL Absolute Nucleated RBC 0.00 x10^3/uL Nucleated RBC % 0.0 /100WBC Sodium 131 L (135-145) mmol/L Potassium 3.2 L (3.5-5.0) mmol/L Chloride 103 (101-111) mmol/L Carbon Dioxide 21 (21-32) mmol/L Anion Gap 7.0 (6-13) BUN 11 (6-20) mg/dL Creatinine 0.8 (0.6-1.2) mg/dL Estimated GFR (MDRD) 97 (>89) Glucose 71 (70-100) mg/dL Calcium 7.9 L (8.5-10.3) mg/dL Total Bilirubin 1.2 H (0.2-1.0) mg/dL AST 34 (10-42) IU/L ALT 18 (10-60) IU/L Alkaline Phosphatase 56 (42-121) IU/L Total Protein 6.7 (6.7-8.2) g/dL Albumin 2.7 L (3.2-5.5) g/dL Globulin 4.0 (2.1-4.2) g/dL Albumin/Globulin Ratio 0.7 L (1.0-2.2) ABX Reporting Has patient been on IV antibiotics over the past 48 hours?: Yes Assessment/Plan - Problem List (1) Syncope Impression: 06/11 no syncope at hospital, unknown etiology, pt has physical deconditioning, weakness, anemia. 06/10 pt feel better, today ECHO reveals pt has similar normal EF and unremarkable ECHO. US of Carotid indicate unremarkable. pt has unremarkable EKG as his base, and pt state he did not have seizure or hx of seizure. unknown etiology, one explain, pt has physical deconditioning, weakness. will order orthostatic BP pt had ECHO on February, his EF 60-65%. Pt recently has an extensive complex medical history. will order ECHO, followup on tele, vital monitor order US of carotid, follow up (2) Pneumonia Conclusion/Plan: 06/11 97% sats on room air, continue antibiotics, blood culture and sensitivity study are pending 06/10 continue treat with antibiotics. pt's WBC is down to normal, 98% sats on room air CXR indicate pneumonia, and elevated WBC, bed-bound, physical deconditioning treat with antibiotics with Levoquin and vancomycin follow up blood culture IVF of NS vital, tele monitor (3) Hypotension Conclusion/Plan: 06/11 improved, as baseling improved SBP at 102 continue IVF of NS continue vital and tele monitor pt has Metoprolol but pt has HR is around 90-100, so difficult to reduce BP meds IVF of NS gently for profusion, vital monitor Q4H (4) Anemia Conclusion/Plan: 06/11 improved, HGB 9.2 from 8.8 iron study reveal iron deficiency IV of iron ferricit daily lab monitor pt has HGB 10.1, MCV 74. pt report he tool iron pill at home. pt appear pale, and weakness, and lightheaded with pre-syncope. pt denies GI bleeding closely monitor H&H Iron study, will follow up, will consider of IV of iron, and transfusion of blood PRN (5) Hyponatremia Conclusion/Plan: 06/11 slight improved at Na131 Na is 130, will continue IVF of NS daily lab monitor Na 129 today, it seems hypovolume with hyponatremia. pt appears dehydration IVF of NS check lab to monitor (6) Weakness generalized Conclusion/Plan: order PT/OT, will follow up pt appear weakness, difficult to ambulate will consider PT/OT afte pt is stable (7) Physical deconditioning pt has complex hx, weakness, loss of appetite, loss of weight, hypothermic body temperature. check morning cortisol and TSH (8) bacteremia sensitivity is pending, will follow up continue Levoquin and Vancomycin blood culture in both tube reveals gram positive cocci, sensitivity study is pending Levoquin and Vancomycin gently IVF check lactic acid Qualifiers: Syncope type: vasovagal syncope Qualified Code(s): R55 - Syncope and collapse (2) Pneumonia Qualifiers: Pneumonia type: due to unspecified organism Laterality: bilateral Lung location: lower lobe of lung Qualified Code(s): J18.1 - Lobar pneumonia, unspecified organism (3) Hypotension Qualifiers: Hypotension type: unspecified hypotension type Qualified Code(s): I95.9 - Hypotension, unspecified
[2018-06-11] MEDS: traMADol 50 MG TABLET PO PRN ×2 (18:54→23:39)
[2018-06-11] MEDS: levoFLOXacin 750 MG/150 ML 750 MG/150 ML BAG IV SCH (18:59)
[2018-06-11] MEDS: guaiFENesin 600 MG TABLET PO SCH (20:29)
[2018-06-11] MEDS: ATORVASTATIN 40 MG TABLET PO SCH (20:29)
[2018-06-11] MEDS: BENZOCAINE/MENTHOL LOZENGE MM PRN (23:39)
[2018-06-12] MEDS: BENZOCAINE/MENTHOL LOZENGE MM PRN (02:13)
[2018-06-12] MEDS: traMADol 50 MG TABLET PO PRN ×2 (03:22→09:49)
[2018-06-12 05:52] LABS: BASOPHILS # (AUTO) 0.1 10^3/uL (0.0-0.1); BASOPHILS % (AUTO) 0.5 %; EOSINOPHILS % (AUTO) 0.1 %; HGB - HEMOGLOBIN 9.1 g/dL (14.0-18.0); LYMPHOCYTES # (AUTO) 0.9 10^3/uL (1.5-3.5); MEAN CORPUSCULAR HEMOGLOBIN 24.4 pg (27.0-31.0); MEAN CORPUSCULAR HGB CONC 32.6 g/dL (32.0-36.0); MEAN CORPUSCULAR VOLUME 74.8 fL (80.0-94.0); MEAN PLATELET VOLUME 7.6 fL (7.4-11.4); MONOCYTES # (AUTO) 2.1 10^3/uL (0.0-1.0); MONOCYTES % (AUTO) 9.9 %; NEUTROPHILS # (AUTO) 18.5 10^3/uL (1.5-6.6); NEUTROPHILS % (AUTO) 85.5 %; PLT - PLATELET COUNT 245 10^3/uL (130-450); RED BLOOD COUNT 3.74 10^6/uL (4.70-6.10); WHITE BLOOD COUNT 21.7 x10^3/uL (4.8-10.8)
[2018-06-12 06:07] LABS: ALBUMIN 2.7 g/dL (3.2-5.5); ALBUMIN/GLOBULIN RATIO 0.7 (1.0-2.2); BILIRUBIN,TOTAL 1.3 mg/dL (0.2-1.0); CALCIUM 8.2 mg/dL (8.5-10.3); CREATININE 0.8 mg/dL (0.6-1.2); TOTAL PROTEIN 6.7 g/dL (6.7-8.2)
[2018-06-12 06:29] LABS: PLATELET ESTIMATE, MANUAL NORMAL (130-450,000) (NORMAL); PLATELET MORPHOLOGY NORMAL APPEARANCE (NORMAL)
[2018-06-12 08:17] VITALS: BP 104/68
[2018-06-12] MEDS ORDERED: DOCUSATE SODIUM 250 MG CAPSULE PO SCH (09:00)
[2018-06-12] MEDS ORDERED: SENNA 8.6 MG TABLET PO SCH (09:00)
[2018-06-12] MEDS: FERROUS GLUCONATE 324 MG TABLET PO SCH (09:48)
[2018-06-12] MEDS: ASPIRIN EC 81 MG TABLET PO SCH (09:48)
[2018-06-12] MEDS: ENOXAPARIN 40 MG/0.4 ML SYRINGE SUBQ SCH (09:48)
[2018-06-12] MEDS: CLOPIDOGREL 75 MG TABLET PO SCH (09:48)
[2018-06-12] MEDS: guaiFENesin 600 MG TABLET PO SCH (09:49)
[2018-06-12] MEDS: SODIUM CHLORIDE FLUSH 0.9% 10 ML SYRINGE IVP SCH (09:49)
[2018-06-12] MEDS: METOPROLOL SUCCINATE 25 MG TABLET PO SCH (09:50)
[2018-06-12] MEDS: FAMOTIDINE 20 MG TABLET PO SCH (10:08)
[2018-06-12] MEDS: POLYETHYLENE GLYCOL 3350 17 GM PACKET PO SCH (10:08)
[2018-06-12 10:33] LABS: VANCOMYCIN,TROUGH 30.7 ug/mL (10.0-20.0)
--- NOTE | 2018-06-12 10:51 | Discharge Plan ---
Discharge Plan Disposition: 01 Home, Self Care Condition: Good Prescriptions: Ciprofloxacin HCl [Cipro] 500 mg PO BID 4 Days #8 tablet Saccharomyces Boulardii [Florastor] 250 mg PO BID #60 capsule traMADol [Ultram] 50 mg PO Q4-6H #20 tablet Diet: Regular Activity Restrictions: Activity as Tolerated Shower Restrictions: No Driving Restrictions: No Weight Bearing: Full Weight Additional Instructions or Follow Up instructions: You were admitted to the hospital for the treatment of pneumonia and were found to have positive blood cultures. You were first treated with IV antibiotics, that are being changed to an oral for to complete this treatment course. Please also take a probiotic for about one month. Dr. Jung, Cardiology will be given a copy of your discharge summary. Please see your PCP within one week. No Smoking: If you smoke, Please STOP! Call for help. Follow-up with: Davina Hernandez MD [Primary Care Provider] -
--- NOTE | 2018-06-12 10:55 | DISCHARGE SUMMARY ---
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 Pneumonia (J18.9) treatment to continue at home with oral antibiotics, stable. Bacteremia (R78.81) treatment to continue at home with oral antibiotics, stable. Diastolic dysfunction with chronic heart failure (I50.32) chronic, stable. 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 Weakness generalized (R53.1) chronic, stable. Severe Protein Calorie malnutrition (E43) ongoing, patient encouraged to follow up with PCP. - HPI History of Present Illness: Mr. Dobbins is a 67-year-old male with a complex medical history. Pt had a usual health until he had an elective cholecystectomy on 08/10/17. ON 08/15/17, he developed fever, shortness of breath, chest pain and malaise. He was found to nonhealing ulcer around site of his laparoscopic cholecystectomy and bacteremia with MSSA. A BEATRIZ was negative for endocarditis. Then he was found to have AZ with pericarditis, and started on colchicine for the pericarditis. 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 He was discharged with cefazolin for home infusion, then he developed a purple rash over his lower extremities, and readmission to [facility]. The Biopsy reveals leukocytoclastic vasculitis, and transferred to [place] for cardiothoracic surgical evaluation and treatment. At [place] no intervention was done. Pt state he has been spending most of recent time at hospital. The patient presented to the emergency department for pre-syncopal episodes. He states that this morning, just after he awoke, he got up to use the restroom when he felt lightheaded and then passed out. His daughter immediately woke up and found him awake on the floor. The patient reports that he believed it to be only a few seconds from the time he first felt a fainting sensation to the time he fell. He claims that he did not loose consciousness and denied any injuries from this fall. He has had recent weight loss in the past few months of about 60 pounds, has chronic fatigue, and has had recurrent pre-syncopal episodes a few times before. He denies fever, chest pain, palpitations, rashes, increased shortness of breath, but has intermittent chills at times. In the ER, the patient's BP was low at 85/65, temperature at 36.3, had a s lightly elevated WBC at 11.8. A chest x-ray showed bilateral basilar airspace process and small right pleural effusion and trace left pleural effusion. He was admitted as an inpatient for further treatment. - HOSPITAL COURSE Hospital Course: (1) Syncope The patient had his last ECHO in February, and was noted to have an EF 60-65%. Pt recently has an extensive complex medical history. The patient had an echocardiogram and final results show a stable EF of 60%. He was continuously monitored on telemetry, which concluded no pauses or arrhythmias. A US of carotid showed no hemodynamically notable stenosis. (2) Pneumonia An admission chest x-ray showed pneumonia with bilateral infiltrates. The patient had an elevated WBC of 11.8, that was increased ~21 prior to discharge. The patient has been recently spending more time in bed, and has evidence of physical deconditioning. He was started on IV antibiotics including; IV Levoquin and vancomycin. Blood cultures x2 were obtained showing gram positive clusters, and the second growing out staph aureous. The patient was transitioned to oral antibiotics using Ciprofloxacin based on sensitivities. He did not require oxygen, denies a productive cough and was not found to be in respiratory distress at the time of discharge. (3) Hypotension The patient is prescribed Metoprolol at home, which was continued throughout his hospital stay. He was found to be mildly tachycardic with heart rates 90-100. He was treated with IV fluids, and this condition resolved upon discharge. (4) Anemia The patient was found to have a low hemoglobin at 10.1, a low MCV at 74, indicating anemia of chronic disease verses iron deficiency. The patient reported that he takes a daily iron supplement at home. He continued to appear pale upon discharge. He did not have evidence of GI bleeding. He was monitored and this condition is considered to be stable upon discharge. (5) Hyponatremia The patient was found to have a low sodium of 129 upon admission, that was likely related to hypovolemia. He was given IV fluids, and this condition was resolved upon discharge with an improved sodium of 132. (6) Weakness generalized The patient notes that ever since receiving his coronary stent, he has been very weak. He is agreeable to possible cardiac rehab. He has been more bed bound, and sedentary in the recent past leading to muscle atrophy and weakness. This condition is stable. (7) Physical deconditioning Overall, the patient continued to exhibit profound weakness, loss of appetite, low blood pressure, and hypothermia, with complex medical history The patient is agreeable to in the near future being referred to cardiac rehab. (8) Severe Protein calorie malnutrition The patient was evaluated by our nutrition team, and pointed out criteria for this diagnosis; significant muscle wasting, a 20% weight loss in the past 9 months, and he has had profound weakness, spending more time in bed or sede ntary. Disposition: The patient was discharged in stable condition, did not require oxygen and states that he is much improved compared to when he was first admitted. His blood cultures showed an identifiable pathogen to continue oral treatment at home. The patient's was at the bedside and all questions were answered in regards to ongoing care. The patient was anxious to return home and was transported home with his , via private car. - ALLERGIES Allergies/Adverse Reactions: Allergies Allergy/AdvReac Type Severity Reaction Status Date / Time cefazolin Allergy Rash Verified 09/11/17 17:09 lorazepam Allergy Hallucinati Verified 09/11/17 14:06 ons nafcillin Allergy Rash Verified 09/11/17 17:13 amoxicillin AdvReac Unknown Verified 09/11/17 14:06 sulfamethoxazole AdvReac Itching Verified 08/05/17 02:19 [From Bactrim] trimethoprim [From Bactrim] AdvReac Itching Verified 08/05/17 02:19 - MEDICATIONS Home Medications: Ambulatory Orders Medication Instructions Recorded Confirmed Atorvastatin Calcium 40 mg PO DAILY 09/11/17 06/09/18 Nitroglycerin 0.4 mg SL PRN PRN 09/11/17 06/09/18 Aspirin [Aspirin EC] 81 mg PO DAILY 09/12/17 06/09/18 Furosemide 20 mg PO DAILY PRN 09/12/17 06/09/18 Metoprolol Succinate 25 mg PO DAILY 09/12/17 06/10/18 Clopidogrel Bisulfate [Clopidogrel] 75 mg PO DAILY 06/09/18 06/09/18 Acetaminophen [Tylenol] 162.5 mg PO Q6H PRN 06/10/18 06/10/18 Ferrous Gluconate 324 mg PO BID 06/10/18 06/10/18 Ciprofloxacin HCl [Cipro] 500 mg PO BID 4 Days #8 tablet 06/12/18 Saccharomyces Boulardii [Florastor] 250 mg PO BID #60 capsule 06/12/18 traMADol [Ultram] 50 mg PO Q4-6H #20 tablet 06/12/18 - PHYSICAL EXAM AT DISCHARGE General Appearance: positive: No acute distress, Alert Eyes Bilateral: positive: Normal inspection, PERRL ENT: positive: ENT inspection nml, Pharynx nml, No signs of dehydration Neck: positive: Nml inspection, Thyroid nml, No JVD, Trachea midline Respiratory: positive: Chest non-tender, No respiratory distress, Other (diminished bilaterally) Cardiovascular: positive: Regular rate & rhythm Peripheral Pulses: positive: 2+ Abdomen: positive: Non-tender, No organomegaly, Nml bowel sounds Back: positive: Nml inspection Skin: positive: No rash, Warm, Dry Extremities: positive: Non-tender, Full ROM, Nml appearance, No pedal edema Neurologic/Psychiatric: positive: Oriented x3, CN's nml (2-12), Motor nml, Sensation nml, Mood/affect nml Reflexes: Bicep (R): 3+, Bicep (L): 3+ - LABS Result Diagrams: 06/12/18 05:40 06/12/18 05:40 - DIAGNOSTIC IMAGING Diagnostic Imaging Results: Final report reviewed Diagnostic Imaging Results Comments: EXAM: CHEST RADIOGRAPHY EXAM DATE: 06/09/2018 01:41 PM. IMPRESSION: 1. Bilateral basilar opacities, slightly greater on the right. Findings may be due to developing airspace process or atelectasis. 2. Small right pleural effusion and trace left pleural effusion. EXAM: BILATERAL CAROTID AND VERTEBRAL ARTERY DUPLEX DOPPLER ULTRASOUND: EXAM DATE: 06/10/2018 12:04 PM IMPRESSION: 1. Mild bilateral carotid artery plaquing. 2. In the right carotid artery there are no elevated carotid artery velocities to suggest hemodynamically significant stenosis. 3. In the left carotid artery there are no elevated carotid artery velocities to suggest hemodynamically significant stenosis. 4. Normal antegrade flow is present in bilateral vertebral arteries. ECHOCARDIOGRAM Final read by Tyler Osei MD 1. Normal LV size and function, EF 60%. There is mild diastolic dysfunction. The LA is normal in size. 2. Mildly schlerotic aortic and mitral valves with normal valve function throughout. 3. Normal RV size and function throughout. Pulmonary pressure could not be estimated but right atrial pressure appears slightly elevated. - FOLLOW UP Follow Up: Disposition: Home, Self Care Condition: Good Prescriptions: Ciprofloxacin HCl [Cipro] 500 mg PO BID 4 Days #8 tablet Saccharomyces Boulardii [Florastor] 250 mg PO BID #60 capsule traMADol [Ultram] 50 mg PO Q4-6H #20 tablet Diet: Regular Activity Restrictions: Activity as Tolerated Shower Restrictions: No Driving Restrictions: No Weight Bearing: Full Weight Additional Instructions or Follow Up instructions: You were admitted to the hospital for the treatment of pneumonia and were found to have positive blood cultures. You were first treated with IV antibiotics, that are being changed to an oral for to complete this treatment course. Please also take a probiotic for about one month. Dr. Jung, Cardiology will be given a copy of your discharge summary. Please see your PCP within one week. - TIME SPENT Time Spent in Discharge (Minutes): 50
== END 2018-06-12 13:28 | disposition home or self-care (01) | DRG 193 ==
LOC: ED 12:46 → MS2 17:34
PROVIDERS: ADMIT Nurse Practitioner Gerontology; ATTEND Nurse Practitioner
DX: J18.1 Lobar pneumonia, unspecified organism (principal); E43 Unspecified severe protein-calorie malnutrition; R78.81 Bacteremia; K21.9 Gastro-esophageal reflux disease without esophagitis; I50.32 Chronic diastolic (congestive) heart failure; E87.1 Hypo-osmolality and hyponatremia; R55 Syncope and collapse; I95.9 Hypotension, unspecified; I11.0 Hypertensive heart disease with heart failure; R53.82 Chronic fatigue, unspecified; D50.9 Iron deficiency anemia, unspecified; R53.1 Weakness; M06.9 Rheumatoid arthritis, unspecified; M19.90 Unspecified osteoarthritis, unspecified site; M81.0 Age-related osteoporosis without current pathological fracture; G89.29 Other chronic pain; M54.9 Dorsalgia, unspecified; Z91.81 History of falling; Z79.82 Long term (current) use of aspirin; Z79.02 Long term (current) use of antithrombotics/antiplatelets; Z86.79 Personal history of other diseases of the circulatory system; Z87.19 Personal history of other diseases of the digestive system; I25.2 Old myocardial infarction; Z82.49 Family history of ischemic heart disease and other diseases of the circulatory system
CPT/HCPCS: 36415; 71045; 80053; 80202; 81001; 81003; 82533; 82607; 82728; 83540; 83605; 83615; 83690; 83735; 84443; 84466; 84484; 85025; 85044; 87040; 87086; 87181; 87640; 93005; 93306; 93880; 96361; 96365; 96375; 99284; 99285

== ENCOUNTER 2018-06-22 08:48 | Outpatient (CLI) | payer MEDICARE ==
[2018-06-22 12:57] LABS: ALBUMIN 3.3 g/dL (3.2-5.5); ALBUMIN/GLOBULIN RATIO 0.8 (1.0-2.2); BILIRUBIN,TOTAL 1.2 mg/dL (0.2-1.0); CALCIUM 8.6 mg/dL (8.5-10.3); CREATININE 1.1 mg/dL (0.6-1.2); TOTAL PROTEIN 7.3 g/dL (6.7-8.2)
[2018-06-22 13:10] LABS: BASOPHILS # (AUTO) 0.2 10^3/uL (0.0-0.1); BASOPHILS % (AUTO) 1.8 %; EOSINOPHILS # (AUTO) 0.1 10^3/uL (0.0-0.7); EOSINOPHILS % (AUTO) 1.1 %; HGB - HEMOGLOBIN 10.5 g/dL (14.0-18.0); LYMPHOCYTES # (AUTO) 1.4 10^3/uL (1.5-3.5); LYMPHOCYTES % (AUTO) 13.4 %; MEAN CORPUSCULAR HGB CONC 32.8 g/dL (32.0-36.0); MEAN CORPUSCULAR VOLUME 76.3 fL (80.0-94.0); MEAN PLATELET VOLUME 7.5 fL (7.4-11.4); MONOCYTES % (AUTO) 10.2 %; NEUTROPHILS # (AUTO) 7.4 10^3/uL (1.5-6.6); NEUTROPHILS % (AUTO) 73.5 %; PLT - PLATELET COUNT 208 10^3/uL (130-450); RED CELL DISTRIBUTION WIDTH 21.1 % (12.0-15.0); WHITE BLOOD COUNT 10.1 x10^3/uL (4.8-10.8)
[2018-06-22 14:24] LABS: PLATELET ESTIMATE, MANUAL NORMAL (130-450,000) (NORMAL); PLATELET MORPHOLOGY 1+ LARGE PLATELETS (NORMAL)
== END 2018-06-22 08:49 | disposition home or self-care (01) ==
LOC: LAB.WCP 08:48
PROVIDERS: ATTEND Family Medicine
DX: J15.9 Unspecified bacterial pneumonia (principal); I50.9 Heart failure, unspecified; R06.00 Dyspnea, unspecified
CPT/HCPCS: 36415; 80053; 83880; 85025

== ENCOUNTER 2018-07-06 11:43 | Outpatient (CLI) | payer MEDICARE | END 2018-07-06 11:44 | disposition home or self-care (01) | LOC: LAB.WCP 11:43 | PROVIDERS: ATTEND Family Medicine | DX: R06.09 Other forms of dyspnea (principal) | CPT/HCPCS: 36415; 83880 ==

== ENCOUNTER 2018-07-14 10:51 | Outpatient (CLI) | payer MEDICARE ==
--- NOTE | 2018-07-16 16:39 | CT Report ---
Reason: HEMOPTYSIS,UNSPECIFIED,DYSPNEA ON EXERTION Procedure Date: 07/14/2018 Accession Number: [id number] / [id number] Procedure: CT - Chest W/O CPT Code: FULL RESULT: EXAM: CT CHEST EXAM DATE: 07/14/2018 11:32 AM. CLINICAL HISTORY: HEMOPTYSIS, UNSPECIFIED, DYSPNEA ON EXERTION. COMPARISONS: CHEST ANGIO (AORTA) 08/05/2017 2:31 AM. TECHNIQUE: Routine helical CT imaging was performed through the chest. IV contrast: 08/05/2017. Reconstructions: Coronal and sagittal. In accordance with CT protocol optimization, one or more of the following dose reduction techniques were utilized for this exam: automated exposure control, adjustment of mA and/or KV based on patient size, or use of iterative reconstructive technique. FINDINGS: Lungs/Pleura: There is dense consolidation with convex margins versus mass involving medial lingula abutting the left heart border. The finding measures 6 cm in AP dimension by 5.5 cm craniocaudal and 2 cm transverse. There is abrupt cutoff of the subsegmental bronchus ( series 4, image 34) . There is slight heterogeneity within the central portion, which could indicate internal mass and/or drowned lung. There are moderate-sized bilateral effusions, which measure within simple fluid by Hounsfield unit measurement. No extra ventilatory air. Mediastinum: Heart is normal in size. There is no appreciable mediastinal or hilar adenopathy. Dense coronary artery calcium is noted. Bones: Unremarkable. Visualized Abdomen: Unremarkable. Other: None. IMPRESSION: 1. New 6 cm mass versus postobstructive drowned lung involving the medial lingula as described. 2. New moderate bilateral pleural effusions. RADIA The above findings were discussed with Manjeet Jones by Dr. Fernando Jimenez at 16:23 hrs on 07/16/18.
== END 2018-07-14 10:52 | disposition home or self-care (01) ==
LOC: DI 10:51
PROVIDERS: ATTEND Family Medicine
DX: R91.8 Other nonspecific abnormal finding of lung field (principal); J90 Pleural effusion, not elsewhere classified
CPT/HCPCS: 71250

== ENCOUNTER → 2018-07-24 | Outpatient (CLI) | payer MEDICARE ==
[2018-07-24 18:38] LABS: BASOPHILS # (AUTO) 0.1 10^3/uL (0.0-0.1); BASOPHILS % (AUTO) 0.9 %; EOSINOPHILS # (AUTO) 0.3 10^3/uL (0.0-0.7); EOSINOPHILS % (AUTO) 5.4 %; HGB - HEMOGLOBIN 9.8 g/dL (14.0-18.0); LYMPHOCYTES # (AUTO) 2.1 10^3/uL (1.5-3.5); LYMPHOCYTES % (AUTO) 35.3 %; MEAN CORPUSCULAR HEMOGLOBIN 25.4 pg (27.0-31.0); MEAN CORPUSCULAR HGB CONC 30.7 g/dL (32.0-36.0); MEAN CORPUSCULAR VOLUME 82.7 fL (80.0-94.0); MEAN PLATELET VOLUME 8.9 fL (7.4-11.4); MONOCYTES # (AUTO) 0.7 10^3/uL (0.0-1.0); MONOCYTES % (AUTO) 11.3 %; NEUTROPHILS # (AUTO) 2.8 10^3/uL (1.5-6.6); NEUTROPHILS % (AUTO) 47.1 %; PLT - PLATELET COUNT 189 10^3/uL (130-450); RED BLOOD COUNT 3.86 10^6/uL (4.70-6.10); RED CELL DISTRIBUTION WIDTH 20.7 % (12.0-15.0); WHITE BLOOD COUNT 5.9 x10^3/uL (4.8-10.8)
[2018-07-24 18:51] LABS: ALBUMIN 3.8 g/dL (3.2-5.5); ALBUMIN/GLOBULIN RATIO 0.9 (1.0-2.2); BILIRUBIN,TOTAL 0.8 mg/dL (0.2-1.0); CALCIUM 8.9 mg/dL (8.5-10.3); CREATININE 1.1 mg/dL (0.6-1.2)
[2018-07-24 19:20] LABS: BILIRUBIN,URINE NEGATIVE (NEGATIVE); GLUCOSE, URINE (UA) NEGATIVE (NEGATIVE); KETONES,URINE (UA) NEGATIVE (NEGATIVE); LEUKOCYTE ESTERASE, URINE NEGATIVE (NEGATIVE); NITRITE,URINE NEGATIVE (NEGATIVE); OCCULT BLOOD,URINE SMALL (NEGATIVE); PH,URINE 5.5 PH (5.0-7.5); PROTEIN,URINE NEGATIVE (NEGATIVE); UROBILINOGEN,URINE 0.2 (NORMAL) E.U./dL (NORMAL)
[2018-07-24 19:25] LABS: PLATELET ESTIMATE, MANUAL NORMAL (130-450,000) (NORMAL); PLATELET MORPHOLOGY NORMAL APPEARANCE (NORMAL); RBC MORPHOLOGY (MULTIPLE) 1+ ANISOCYTOSIS (NORMAL)
[2018-07-24 19:32] LABS: BACTERIA,URINE None Seen /HPF (None Seen); CLARITY,URINE CLEAR (CLEAR); RBC,URINE 0-5 /HPF (0-5); SQUAMOUS EPITHELIAL CELL,UR RARE Squamous (<= Few)
== END ==
LOC: LAB.WCP 08:00
PROVIDERS: ATTEND Family Medicine
DX: R06.09 Other forms of dyspnea (principal); N20.0 Calculus of kidney
CPT/HCPCS: 36415; 80053; 81001; 83880; 85025; 87086

== ENCOUNTER 2018-08-07 13:20 | Outpatient (CLI) | payer MEDICARE ==
[2018-08-07 18:49] LABS: HGB - HEMOGLOBIN 10.6 g/dL (14.0-18.0); MEAN CORPUSCULAR HEMOGLOBIN 26.2 pg (27.0-31.0); MEAN CORPUSCULAR HGB CONC 31.7 g/dL (32.0-36.0); MEAN CORPUSCULAR VOLUME 82.6 fL (80.0-94.0); MEAN PLATELET VOLUME 8.7 fL (7.4-11.4); RED BLOOD COUNT 4.06 10^6/uL (4.70-6.10); WHITE BLOOD COUNT 5.7 x10^3/uL (4.8-10.8)
[2018-08-07 18:58] LABS: CREATININE 1.1 mg/dL (0.6-1.2)
== END 2018-08-07 23:59 | disposition home or self-care (01) ==
LOC: LAB.WCP 13:20
PROVIDERS: ATTEND Family Medicine
DX: R06.09 Other forms of dyspnea (principal)
CPT/HCPCS: 36415; 80048; 83880; 85027

== ENCOUNTER 2018-08-22 08:00 | Outpatient (CLI) | payer MEDICARE ==
[2018-08-22 19:59] LABS: HGB - HEMOGLOBIN 10.7 g/dL (14.0-18.0); MEAN CORPUSCULAR HEMOGLOBIN 26.2 pg (27.0-31.0); MEAN CORPUSCULAR HGB CONC 31.1 g/dL (32.0-36.0); MEAN CORPUSCULAR VOLUME 84.1 fL (80.0-94.0); MEAN PLATELET VOLUME 8.5 fL (7.4-11.4); RED BLOOD COUNT 4.09 10^6/uL (4.70-6.10); RED CELL DISTRIBUTION WIDTH 18.9 % (12.0-15.0); WHITE BLOOD COUNT 5.6 x10^3/uL (4.8-10.8)
[2018-08-22 20:11] LABS: CALCIUM 9.3 mg/dL (8.5-10.3); CREATININE 1.1 mg/dL (0.6-1.2)
== END 2018-08-22 23:59 | disposition home or self-care (01) ==
LOC: LAB.WCP 08:00
PROVIDERS: ATTEND Family Medicine
DX: R04.2 Hemoptysis (principal)
CPT/HCPCS: 36415; 80048; 83880; 85027

== ENCOUNTER 2018-08-31 10:50 | Outpatient (CLI) | payer MEDICARE ==
--- NOTE | 2018-08-31 13:34 | CT Report ---
Reason: HEMOPTYSIS, UNSPECIFIED Procedure Date: 08/31/2018 Accession Number: [id number] / [id number] Procedure: CT - Chest W/O CPT Code: FULL RESULT: EXAM: CT CHEST EXAM DATE: 08/31/2018 11:14 AM. CLINICAL HISTORY: HEMOPTYSIS, UNSPECIFIED. COMPARISONS: CHEST W/O 07/14/2018 11:34 AM CHEST ANGIO (AORTA) 08/05/2017 2:31 AM. TECHNIQUE: Routine helical CT imaging was performed through the chest. IV contrast: None. Reconstructions: Coronal and sagittal. In accordance with CT protocol optimization, one or more of the following dose reduction techniques were utilized for this exam: automated exposure control, adjustment of mA and/or KV based on patient size, or use of iterative reconstructive technique. FINDINGS: Lungs/Pleura: Consolidation in the lingula persists but has markedly decreased in size compared to 07/14/2018. Bilateral pleural effusions small on the left small to moderate on the right have decreased in the interval. There is no pneumothorax. No definite lung mass is detected. There are no suspicious pulmonary nodules. Mediastinum: Severe three-vessel coronary atherosclerosis status post LAD stenting is again seen. Best appreciated on sagittal imaging, for example image 26 series 7 is a sudden break in the otherwise heavily calcified left anterior descending coronary artery with associated epicardial hyperdensity immediately adjacent to the pulmonary consolidation. Retrospectively, on the CT 07/14/2018 the findings also demonstrated where there is globular hyperdensity suggestive of pseudoaneurysm formation, presumably with rupture. Specific measurements or direct visualization of the pseudoaneurysm is not possible on today's study without contrast. There is no mediastinal lymphadenopathy. Bones: No aggressive osseous lesion is detected. Visualized Abdomen: Unremarkable. Other: None. IMPRESSION: Concern for injury to the LAD coronary artery distal to the stent with pseudoaneurysm formation and hemorrhage towards the lingula. Interval decrease in pleural effusions and consolidation in the lingula. No underlying mass suspicious for malignancy is detected. Recommendation: Diagnostic imaging could be performed in the form of a coronary CT angiogram or echocardiogram. Emergent Cardiologic referral is recommended. [facility] CRITICAL RESULT: The findings were discussed with Dr. Ewing on 08/31/2018 at 1:20 PM.
== END 2018-08-31 10:51 | disposition home or self-care (01) ==
LOC: DI 10:50
PROVIDERS: ATTEND Family Medicine
DX: J18.1 Lobar pneumonia, unspecified organism (principal); J90 Pleural effusion, not elsewhere classified
CPT/HCPCS: 71250

== ENCOUNTER 2018-10-21 11:19 | Outpatient (CLI) | payer MEDICARE | END 2018-10-21 11:20 | disposition home or self-care (01) | LOC: DI 11:19 | PROVIDERS: ATTEND Nurse Practitioner Adult Health | DX: I25.118 Atherosclerotic heart disease of native coronary artery with other forms of angina pectoris (principal); E78.5 Hyperlipidemia, unspecified; I12.9 Hypertensive chronic kidney disease with stage 1 through stage 4 chronic kidney disease, or unspecified chronic kidney disease; N18.3 Chronic kidney disease, stage 3 (moderate) | CPT/HCPCS: 93306 ==

== ENCOUNTER 2018-12-18 08:11 | Outpatient (CLI) | payer MEDICARE ==
[2018-12-18 08:34] LABS: BASOPHILS # (AUTO) 0.2 10^3/uL (0.0-0.1); BASOPHILS % (AUTO) 1.2 %; EOSINOPHILS # (AUTO) 0.4 10^3/uL (0.0-0.7); EOSINOPHILS % (AUTO) 2.9 %; LYMPHOCYTES # (AUTO) 2.8 10^3/uL (1.5-3.5); LYMPHOCYTES % (AUTO) 21.5 %; MEAN CORPUSCULAR HEMOGLOBIN 27.7 pg (27.0-31.0); MEAN CORPUSCULAR HGB CONC 31.8 g/dL (32.0-36.0); MEAN CORPUSCULAR VOLUME 86.9 fL (80.0-94.0); MEAN PLATELET VOLUME 7.5 fL (7.4-11.4); MONOCYTES # (AUTO) 1.5 10^3/uL (0.0-1.0); MONOCYTES % (AUTO) 11.3 %; NEUTROPHILS # (AUTO) 8.3 10^3/uL (1.5-6.6); NEUTROPHILS % (AUTO) 63.1 %; PLT - PLATELET COUNT 176 10^3/uL (130-450); RED BLOOD COUNT 3.97 10^6/uL (4.70-6.10); WHITE BLOOD COUNT 13.1 x10^3/uL (4.8-10.8)
== END 2018-12-18 08:12 | disposition home or self-care (01) ==
LOC: LAB 08:11
PROVIDERS: ATTEND Nurse Practitioner
DX: I25.10 Atherosclerotic heart disease of native coronary artery without angina pectoris (principal); D50.9 Iron deficiency anemia, unspecified; E23.6 Other disorders of pituitary gland
CPT/HCPCS: 36415; 81599; 84402; 84403; 85025

== ENCOUNTER 2019-01-31 08:00 | Outpatient (CLI) | payer MEDICARE ==
[2019-01-31 18:52] LABS: BASOPHILS % (AUTO) 1.2 %; EOSINOPHILS % (AUTO) 3.3 %; HGB - HEMOGLOBIN 11.9 g/dL (14.0-18.0); LYMPHOCYTES % (AUTO) 13.1 %; MEAN CORPUSCULAR HEMOGLOBIN 27.4 pg (27.0-31.0); MEAN CORPUSCULAR HGB CONC 30.9 g/dL (32.0-36.0); MEAN CORPUSCULAR VOLUME 88.6 fL (80.0-94.0); MEAN PLATELET VOLUME 8.7 fL (7.4-11.4); MONOCYTES % (AUTO) 11.8 %; NEUTROPHILS % (AUTO) 70.6 %; PLT - PLATELET COUNT 203 10^3/uL (130-450); RED BLOOD COUNT 4.34 10^6/uL (4.70-6.10); RED CELL DISTRIBUTION WIDTH 17.8 % (12.0-15.0); WHITE BLOOD COUNT 13.2 x10^3/uL (4.8-10.8)
[2019-01-31 18:58] LABS: ABNORMAL LYMPHS % (MANUAL) 0 %; BAND NEUTROPHILS % (MANUAL) 0 %
[2019-01-31 19:04] LABS: ALBUMIN 4.5 g/dL (3.2-5.5); ALBUMIN/GLOBULIN RATIO 1.3 (1.0-2.2); BILIRUBIN,TOTAL 0.8 mg/dL (0.2-1.0); CALCIUM 9.7 mg/dL (8.5-10.3); CREATININE 1.2 mg/dL (0.6-1.2); TOTAL PROTEIN 8.1 g/dL (6.7-8.2)
[2019-01-31 19:53] LABS: BASOPHILS # (MANUAL) 0.1 10^3/uL (0-0.1); BASOPHILS % (MANUAL) 1 %; DIFFERENTIAL COMMENT MANUAL DIFFERENTIAL; EOSINOPHILS # (MANUAL) 0.1 10^3/uL (0-0.7); LYMPHOCYTES # (MANUAL) 2.9 10^3/uL (1.5-3.5); LYMPHOCYTES % (MANUAL) 22 %; MONOCYTES # (MANUAL) 0.8 10^3/uL (0.0-1.0); NEUTROPHILS # (MANUAL) 9.2 10^3/uL (1.5-6.6); NEUTROPHILS % (MANUAL) 70 %; PLATELET ESTIMATE, MANUAL NORMAL (130-450,000) (NORMAL); PLATELET MORPHOLOGY NORMAL APPEARANCE (NORMAL); RBC MORPHOLOGY (MULTIPLE) 1+ ANISOCYTOSIS (NORMAL)
== END 2019-01-31 23:59 | disposition home or self-care (01) ==
LOC: LAB.WCP 08:00
PROVIDERS: ATTEND Family Medicine
DX: E87.6 Hypokalemia (principal)
CPT/HCPCS: 36415; 80053; 85025

== ENCOUNTER 2019-03-14 08:00 | Outpatient (CLI) | payer MEDICARE ==
[2019-03-14 12:44] LABS: CALCIUM 9.6 mg/dL (8.5-10.3); CREATININE 1.1 mg/dL (0.6-1.2)
== END 2019-03-14 23:59 | disposition home or self-care (01) ==
LOC: LAB.WCP 08:00
PROVIDERS: ATTEND Internal Medicine Cardiovascular Disease
DX: E87.5 Hyperkalemia (principal)
CPT/HCPCS: 36415; 80048

== ENCOUNTER 2019-07-31 13:32 | Outpatient (CLI) | payer MEDICARE ==
--- NOTE | 2019-08-01 11:17 | XRAY Report ---
Reason: PNEUMONIA Procedure Date: 07/31/2019 Accession Number: [id number] / [id number] Procedure: XRN - Chest 2 View X-Ray CPT Code: 05103 Final Report FULL RESULT: EXAM: CHEST RADIOGRAPHY EXAM DATE: 07/31/2019 02:19 PM. CLINICAL HISTORY: PNEUMONIA. COMPARISON: CHEST 2 VIEW PA/LAT 07/11/2018 2:24 PM CHEST W/O 08/31/2018 11:05 AM. TECHNIQUE: 2 views. FINDINGS: Lungs/Pleura: Increased interstitial opacity at the left perihilar region and left lower lung. Mild central pulmonary vascular congestion. Mild elevation left hemidiaphragm. Probable small pleural effusions. Mediastinum: Heart size is in the normal range. Sternal wires and mediastinal vascular clips are compatible with CABG. Other: None. IMPRESSION: 1. Increased interstitial opacity at the left perihilar region and left lower lung, may reflect infiltrate and/or asymmetric edema. 2. Mild central pulmonary vascular congestion. Small bilateral pleural effusions. [facility]
== END 2019-07-31 13:33 | disposition home or self-care (01) ==
LOC: DI.N 13:32
PROVIDERS: ATTEND Family Medicine
DX: J15.9 Unspecified bacterial pneumonia (principal); J90 Pleural effusion, not elsewhere classified
CPT/HCPCS: 71046

== ENCOUNTER 2019-08-07 08:00 | Outpatient (CLI) | payer MEDICARE ==
[2019-08-07 12:17] LABS: MEAN CORPUSCULAR HEMOGLOBIN 28.6 pg (27.0-31.0); MEAN CORPUSCULAR VOLUME 89.4 fL (80.0-94.0); MEAN PLATELET VOLUME 10.2 fL (7.4-11.4); RED BLOOD COUNT 4.54 10^6/uL (4.70-6.10); RED CELL DISTRIBUTION WIDTH 14.8 % (12.0-15.0); WHITE BLOOD COUNT 10.3 x10^3/uL (4.8-10.8)
[2019-08-07 12:38] LABS: CALCIUM 9.5 mg/dL (8.5-10.3); CREATININE 1.5 mg/dL (0.6-1.2)
== END 2019-08-07 23:59 | disposition home or self-care (01) ==
LOC: LAB.N 08:00
PROVIDERS: ATTEND Family Medicine
DX: R06.09 Other forms of dyspnea (principal)
CPT/HCPCS: 36415; 80048; 83880; 85027

== ENCOUNTER 2019-09-27 12:03 | Outpatient (CLI) | payer MEDICARE ==
--- NOTE | 2019-09-28 08:42 | XRAY Report ---
Reason: PNEUMONIA Procedure Date: 09/27/2019 Accession Number: [id number] / [id number] Procedure: XRN - Chest 2 View X-Ray CPT Code: 52787 Final Report FULL RESULT: EXAM: CHEST RADIOGRAPHY EXAM DATE: 09/27/2019 12:47 PM. CLINICAL HISTORY: Pneumonia. COMPARISON: Radiograph from 07/31/2019. Chest CT from 08/31/2018. TECHNIQUE: 2 views. FINDINGS: Lungs/Pleura: There appears to be elevation of the left hemidiaphragm, as seen on the prior examination. Increased opacity present in the left base with small bilateral pleural effusions. No pneumothorax. Mediastinum: There is partial obscuration of the cardiac silhouette. Mediastinal contour appears to be within normal limits. Pulmonary vasculature is unremarkable. Other: None. IMPRESSION: 1. New patchy left basilar opacity, which may represent aspiration or pneumonia. Radiographic follow-up is recommended in 6-8 weeks, after treatment, to ensure resolution. 2. Small bilateral pleural effusions, which appear increased on the left since the prior examination. 3. Elevation of the left hemidiaphragm, as seen on the prior examination. [facility]
== END 2019-09-27 12:04 | disposition home or self-care (01) ==
LOC: DI.N 12:03
PROVIDERS: ATTEND Family Medicine
DX: J15.9 Unspecified bacterial pneumonia (principal); J90 Pleural effusion, not elsewhere classified; J98.6 Disorders of diaphragm; N28.9 Disorder of kidney and ureter, unspecified; R06.09 Other forms of dyspnea
CPT/HCPCS: 36415; 71046; 80053; 83880

== ENCOUNTER 2019-09-27 12:11 | Outpatient (CLI) | payer MEDICARE ==
[2019-09-27 19:48] LABS: ALBUMIN 4.5 g/dL (3.2-5.5); ALBUMIN/GLOBULIN RATIO 1.1 (1.0-2.2); BILIRUBIN,TOTAL 0.8 mg/dL (0.2-1.0); CALCIUM 9.4 mg/dL (8.5-10.3); CREATININE 1.2 mg/dL (0.6-1.2); TOTAL PROTEIN 8.6 g/dL (6.7-8.2)
== END 2019-09-27 23:59 | disposition home or self-care (01) ==
LOC: LAB.N 12:11
PROVIDERS: ATTEND Family Medicine
DX: N28.9 Disorder of kidney and ureter, unspecified (principal); J15.9 Unspecified bacterial pneumonia; R06.09 Other forms of dyspnea
CPT/HCPCS: 36415; 80053; 83880

== ENCOUNTER 2019-10-23 10:30 | Outpatient (CLI) | payer MEDICARE ==
[2019-10-23 12:20] LABS: BASOPHILS # (AUTO) 0.1 10^3/uL (0.0-0.1); BASOPHILS % (AUTO) 1.3 %; EOSINOPHILS # (AUTO) 0.3 10^3/uL (0.0-0.7); HGB - HEMOGLOBIN 13.1 g/dL (14.0-18.0); LYMPHOCYTES # (AUTO) 2.2 10^3/uL (1.5-3.5); LYMPHOCYTES % (AUTO) 22.3 %; MEAN CORPUSCULAR HEMOGLOBIN 27.8 pg (27.0-31.0); MEAN CORPUSCULAR VOLUME 89.6 fL (80.0-94.0); MEAN PLATELET VOLUME 10.8 fL (7.4-11.4); MONOCYTES # (AUTO) 1.2 10^3/uL (0.0-1.0); MONOCYTES % (AUTO) 11.6 %; NEUTROPHILS # (AUTO) 6.2 10^3/uL (1.5-6.6); NEUTROPHILS % (AUTO) 61.4 %; PLT - PLATELET COUNT 233 10^3/uL (130-450); RED BLOOD COUNT 4.72 10^6/uL (4.70-6.10); RED CELL DISTRIBUTION WIDTH 14.8 % (12.0-15.0); WHITE BLOOD COUNT 10.1 x10^3/uL (4.8-10.8)
[2019-10-23 12:43] LABS: BUN - BLOOD UREA NITROGEN 18 mg/dL (6-20); CALCIUM 9.2 mg/dL (8.5-10.3); CARBON DIOXIDE - CO2 27 mmol/L (21-32); CHLORIDE 107 mmol/L (101-111); CHOL/HDL RATIO 3.1 (<5.0); CHOLESTEROL 122 mg/dL; CREATININE 1.2 mg/dL (0.6-1.2); GFR - MDRD 60 (>89); GLUCOSE 84 mg/dL (70-100); HDL CHOLESTEROL 40 mg/dL; LDL CHOLESTEROL,CALCULATED 58 mg/dL; LDL/HDL RATIO 1.5 (<3.6); SODIUM 142 mmol/L (135-145); VLDL CHOLESTEROL 24 mg/dL
== END 2019-10-23 23:59 | disposition home or self-care (01) ==
LOC: LAB.N 10:30
PROVIDERS: ATTEND Internal Medicine Cardiovascular Disease
DX: E78.5 Hyperlipidemia, unspecified (principal); I25.10 Atherosclerotic heart disease of native coronary artery without angina pectoris
CPT/HCPCS: 36415; 80048; 80061; 83721; 85025

== ENCOUNTER 2020-10-02 08:00 | Outpatient (CLI) | payer MEDICARE ==
[2020-10-02 08:11] LABS: BASOPHILS # (AUTO) 0.1 10^3/uL (0.0-0.1); BASOPHILS % (AUTO) 0.9 %; EOSINOPHILS # (AUTO) 0.7 10^3/uL (0.0-0.7); EOSINOPHILS % (AUTO) 4.7 %; HGB - HEMOGLOBIN 12.6 g/dL (14.0-18.0); LYMPHOCYTES # (AUTO) 2.4 10^3/uL (1.5-3.5); LYMPHOCYTES % (AUTO) 17.6 %; MEAN CORPUSCULAR HEMOGLOBIN 28.2 pg (27.0-31.0); MEAN CORPUSCULAR HGB CONC 31.3 g/dL (32.0-36.0); MEAN CORPUSCULAR VOLUME 89.9 fL (80.0-94.0); MEAN PLATELET VOLUME 10.3 fL (7.4-11.4); MONOCYTES # (AUTO) 1.5 10^3/uL (0.0-1.0); MONOCYTES % (AUTO) 10.8 %; NEUTROPHILS # (AUTO) 9.1 10^3/uL (1.5-6.6); NEUTROPHILS % (AUTO) 65.6 %; PLT - PLATELET COUNT 270 10^3/uL (130-450); RED BLOOD COUNT 4.47 10^6/uL (4.70-6.10); RED CELL DISTRIBUTION WIDTH 14.3 % (12.0-15.0); WHITE BLOOD COUNT 13.8 x10^3/uL (4.8-10.8)
[2020-10-02 08:43] LABS: BUN - BLOOD UREA NITROGEN 17 mg/dL (6-20); CALCIUM 9.3 mg/dL (8.5-10.3); CARBON DIOXIDE - CO2 27 mmol/L (21-32); CHLORIDE 100 mmol/L (101-111); CHOL/HDL RATIO 3.3 (<5.0); CHOLESTEROL 105 mg/dL; CREATININE 1.3 mg/dL (0.6-1.2); GLUCOSE 91 mg/dL (70-100); HDL CHOLESTEROL 32 mg/dL; LDL CHOLESTEROL,CALCULATED 56 mg/dL; LDL/HDL RATIO 1.8 (<3.6); VLDL CHOLESTEROL 17 mg/dL
== END 2020-10-02 23:59 | disposition home or self-care (01) ==
LOC: LAB 08:00
PROVIDERS: ATTEND Internal Medicine Cardiovascular Disease
DX: E78.5 Hyperlipidemia, unspecified (principal); I25.10 Atherosclerotic heart disease of native coronary artery without angina pectoris
CPT/HCPCS: 36415; 80048; 80061; 83721; 85025

== ENCOUNTER 2020-10-06 07:42 | Outpatient (CLI) | payer MEDICARE ==
--- NOTE | 2020-10-06 14:28 | XRAY Report ---
PROCEDURE: Chest 2 View X-Ray INDICATIONS: COUGH, SHORTNESS OF BREATH TECHNIQUE: 2 view(s) of the chest. COMPARISON: Chest x-ray 09/27/2019 FINDINGS: Surgical changes and devices: None. Lungs and pleura: Mild right and minimal left pleural effusions are present, with interval increase i n size on the right compared to prior exam. Effusion area of patchy basilar opacity on the left is le ss prominent. Mediastinum: Mediastinal contours are normal. Heart size is normal. Bones and chest wall: No suspicious bony abnormalities. Soft tissues appear unremarkable. IMPRESSION: 1. Interval increased effusion within the right base. Areas of developing atelectasis and/or pneumoni a cannot be excluded. 2. Decreased, yet persistent left basilar opacity. 3. Recommend interval follow-up after resolution of bilateral effusions/consolidations to document re solution and exclude presence of underlying mass which could be of malignant etiology. Reviewed by: Rosemarie Pritchett MD on 10/06/2020 2:26 PM PST Approved by: Rosemarie Pritchett MD on 10/06/2020 2:26 PM PST Station ID: [id number]
== END 2020-10-06 23:59 | disposition home or self-care (01) ==
LOC: DI.N 07:42
PROVIDERS: ATTEND Physician Assistant Medical
DX: J40 Bronchitis, not specified as acute or chronic (principal); Z20.822 Contact with and (suspected) exposure to COVID-19
CPT/HCPCS: 71046; U0004

== ENCOUNTER 2020-10-14 07:00 | Outpatient (CLI) | payer MEDICARE | END 2020-10-14 23:59 | disposition home or self-care (01) | LOC: LAB.R 07:00 | PROVIDERS: ATTEND Physician Assistant Medical | DX: R06.00 Dyspnea, unspecified (principal); Z20.822 Contact with and (suspected) exposure to COVID-19 ==

== ENCOUNTER 2020-10-14 08:22 | Emergency (ER) | payer MEDICARE ==
[2020-10-14 08:56] LABS: BASOPHILS % (AUTO) 1.1 %; EOSINOPHILS % (AUTO) 4.9 %; HGB - HEMOGLOBIN 11.4 g/dL (14.0-18.0); LYMPHOCYTES % (AUTO) 12.9 %; MEAN CORPUSCULAR HEMOGLOBIN 27.6 pg (27.0-31.0); MEAN CORPUSCULAR VOLUME 89.1 fL (80.0-94.0); MEAN PLATELET VOLUME 9.6 fL (7.4-11.4); MONOCYTES % (AUTO) 13.2 %; NEUTROPHILS % (AUTO) 67.3 %; PLT - PLATELET COUNT 389 10^3/uL (130-450); RED BLOOD COUNT 4.13 10^6/uL (4.70-6.10); RED CELL DISTRIBUTION WIDTH 13.8 % (12.0-15.0); WHITE BLOOD COUNT 19.2 x10^3/uL (4.8-10.8)
[2020-10-14 08:58] LABS: ABNORMAL LYMPHS % (MANUAL) 0 %
[2020-10-14 09:05] LABS: ALBUMIN 4.1 g/dL (3.2-5.5); ALBUMIN/GLOBULIN RATIO 0.9 (1.0-2.2); CALCIUM 9.3 mg/dL (8.5-10.3); CREATININE 1.4 mg/dL (0.6-1.2); TOTAL PROTEIN 8.8 g/dL (6.7-8.2)
--- NOTE | 2020-10-14 09:40 | XRAY Report ---
PROCEDURE: Chest 1 View X-Ray INDICATIONS: chest pain TECHNIQUE: One view of the chest was acquired. COMPARISON: 10/06/2020 FINDINGS: Surgical changes and devices: Median sternotomy wires.. Lungs and pleura: Moderate-sized right-sided pleural effusion which has increased in size compared to 10/06/2020. Increased consolidation noted in the right lung base which could represent compressive ate lectasis or progression of pneumonia. Elevation left hemidiaphragm is stable. Streaky opacities in th e left lung base likely represent atelectasis. Mediastinum: Mediastinal contours appear normal. Heart size is normal. Bones and chest wall: No suspicious bony lesions. Overlying soft tissues appear unremarkable. IMPRESSION: 1. Moderate-sized right-sided pleural effusion increased in size compared to 10/06/2020. 2. Increasing right basilar consolidation which could represent compressive atelectasis versus progre ssion of pneumonia. Reviewed by: Verona Dubon MD, PhD on 10/14/2020 9:38 AM PST Approved by: Verona Dubon MD, PhD on 10/14/2020 9:38 AM PST Station ID: [id number]
[2020-10-14 09:57] LABS: BAND NEUTROPHILS % (MANUAL) 1 %; BASOPHILS # (MANUAL) 0.6 10^3/uL (0-0.1); BASOPHILS % (MANUAL) 3 %; LYMPHOCYTES # (MANUAL) 2.1 10^3/uL (1.5-3.5); LYMPHOCYTES % (MANUAL) 11 %; MONOCYTES # (MANUAL) 3.1 10^3/uL (0.0-1.0); MYELOCYTES % (MANUAL) 1 %
[2020-10-14 09:58] LABS: DIFFERENTIAL COMMENT MANUAL DIFFERENTIAL; PLATELET ESTIMATE, MANUAL NORMAL (130-450,000) (NORMAL); PLATELET MORPHOLOGY NORMAL APPEARANCE (NORMAL); RBC MORPHOLOGY (MULTIPLE) 1+ POLYCHROMASIA (NORMAL)
[2020-10-14] MEDS ORDERED: IOVERSOL 320 100 ML VIAL IVP ONE ×2 (10:05→16:34)
--- NOTE | 2020-10-14 10:55 | CT Report ---
PROCEDURE: ANGIO CHEST W/WO INDICATIONS: chest pain, elevated d-dimer CONTRAST: IV CONTRAST: Optiray 320 ml: 80 PO CONTRAST: *NO PO CONTRAST TECHNIQUE: After the administration of intravenous contrast, 2 mm thick sections acquired from the pulmonary api rebecca to the posterior costophrenic angles. 3-dimensional maximum intensity projection (MIP) coronal a nd sagittal reformats were then acquired through the thorax. For radiation dose reduction, the follow ing was used: automated exposure control, adjustment of mA and/or kV according to patient size. COMPARISON: Chest radiograph dated 10/14/2020 and 10/06/2020. CT of chest dated 07/14/2018 FINDINGS: Image quality: Excellent. Pulmonary arteries: Pulmonary arteries are normal in size, and demonstrate no intraluminal filling d efects to suggest central pulmonary embolism. Lungs and pleura: There is a moderate size right pleural effusion with adjacent compressive atelectas is in posterior lateral aspect of right upper and lower lobes. Ill-defined airspace opacity in left l jean claude base is also seen concerning for small left basilar infiltrate/atelectasis. Infiltrate/atelectasi s is also noted in anterior medial aspect of left lingular segment with associated bronchiectasis. No pneumothorax. Trace amount of left pleural effusion is seen. No discrete pulmonary nodule or mass is noted. Central and peripheral airways are patent. Mediastinum: Median sternotomy wires and surgical clips are seen. Heart size is enlarged, without pe ricardial effusion. Moderate atherosclerotic calcifications in coronary vessels and thoracic aorta is noted. Coronary artery stents are noted. Mildly prominent mediastinal and hilar lymph nodes are note d measures up to 1.2 cm in short axis diameter in precarinal space and 1.1 cm in short axis diameter and subcarinal space. 1.1 cm right hilar lymph node is seen. Thoracic aorta is normal in caliber and enhancement. Esophagus is normal in caliber, without hiatal hernia. Bones and chest wall: No suspicious bony lesions. Ribs and thoracic spine appear intact throughout. The thyroid is normal. No axillary or supraclavicular adenopathy. Abdomen: Visualized upper abdominal solid organs appear normal in the early arterial phase of enhanc ement. IMPRESSION: 1. No evidence of pulmonary emboli. No thoracic aortic aneurysm or gross dissection. 2. Moderate right pleural effusion with segmental atelectasis in posterior aspect of right upper and lower lobes. Underlying pulmonary infiltrates cannot be excluded. Trace left pleural effusion with il l-defined left basilar infiltrate/atelectasis. Masslike consolidation in anterior medial aspect of le ft lingular segment near left lung base is seen with mild associated bronchiectasis and likely repres ent lingular infiltrate. Follow-up until resolution is recommended to rule out underlying malignant p rocess. Airway is patent. 3. Enlarged mediastinal and right hilar lymph nodes likely represent reactive inflammatory lymphadeno dari. 4. Post cardiac surgery changes as above. Reviewed by: Calin Ball MD on 10/14/2020 10:54 AM PST Approved by: Calin Ball MD on 10/14/2020 10:54 AM PST Station ID: [id number]
[2020-10-14] MEDS ORDERED: levoFLOXacin 250 MG TABLET PO STA (10:59)
--- NOTE | 2020-10-14 11:20 | ED Physician Documentation ---
PD HPI CHEST PAIN - Stated complaint Stated Complaint: SOA - Chief complaint Chief Complaint: Cardiac - History obtained from History obtained from: Patient - Additional information Additional information: Pt is sent to the ED from clinic for ongoing cough and SOB. Pt states he has had a pain in his R lower chest, that is worse with deep breaths, as well. He denies fevers or chills. Pt states he has a chronic cough which is a little worse over the past 3 weeks. He has been treated with doxycycline for this without improvement. Pt states he has a h/o chronic pleural effusion on the R, but this has been stable. No other complaints at this time. Review of Systems Ten Systems: 10 systems reviewed and negative Constitutional: reports: Reviewed and negative Eyes: reports: Reviewed and negative Ears: reports: Reviewed and negative Nose: reports: Reviewed and negative Throat: reports: Reviewed and negative Cardiac: reports: Chest pain / pressure. denies: Pedal edema, Calf pain Respiratory: reports: Dyspnea, Cough GI: reports: Reviewed and negative : reports: Reviewed and negative Skin: reports: Reviewed and negative Musculoskeletal: reports: Reviewed and negative Neurologic: reports: Reviewed and negative Psychiatric: reports: Reviewed and negative Endocrine: reports: Reviewed and negative Immunocompromised: reports: Reviewed and negative PD PAST MEDICAL HISTORY - Past Medical History Cardiovascular: None Respiratory: None Neuro: Fainting Endocrine/Autoimmune: None GI: GERD : Kidney stones HEENT: None Psych: Anxiety, Claustrophobia Musculoskeletal: Osteoarthritis, Rheumatoid arthritis, Osteoporosis, Fatigue, Chronic back pain Derm: None - Past Surgical History Past Surgical History: Yes General: Cholecystectomy Ortho: Other Cardiovascular: Cardiac catheterization - Present Medications Home Medications: Ambulatory Orders Medication Instructions Recorded Confirmed Atorvastatin Calcium 40 mg PO DAILY 09/11/17 10/14/20 Aspirin [Aspirin EC] 81 mg PO DAILY 09/12/17 10/14/20 Furosemide 20 mg PO DAILY PRN 09/12/17 10/14/20 Metoprolol Succinate 25 mg PO DAILY 09/12/17 10/14/20 Acetaminophen [Tylenol] 162.5 mg PO Q6H PRN 06/10/18 10/14/20 Ferrous Gluconate 324 mg PO BID 06/10/18 10/14/20 Saccharomyces Boulardii [Florastor] 250 mg PO BID #60 capsule 06/12/18 10/14/20 traMADol [Ultram] 50 mg PO Q4-6H #20 tablet 06/12/18 10/14/20 Levofloxacin [Levaquin] 500 mg PO DAILY #7 10/14/20 - Allergies Allergies/Adverse Reactions: Allergies Allergy/AdvReac Type Severity Reaction Status Date / Time cefazolin Allergy Rash Verified 10/14/20 08:34 lorazepam Allergy Hallucinati Verified 10/14/20 08:34 ons nafcillin Allergy Rash Verified 10/14/20 08:34 amoxicillin AdvReac Unknown Verified 10/14/20 08:34 sulfamethoxazole AdvReac Itching Verified 10/14/20 08:34 [From Bactrim] trimethoprim [From Bactrim] AdvReac Itching Verified 10/14/20 08:34 - Social History Does the pt smoke?: No Smoking Status: Never smoker Does the pt drink ETOH?: Yes Does the pt have substance abuse?: No - Immunizations Immunizations are current?: Yes - POLST Patient has POLST: No POLST Status: Full Code PD ED PE NORMAL - Vitals Vital signs reviewed: Yes - General General: Alert and oriented X 3, No acute distress - HEENT HEENT: Atraumatic, PERRL, EOMI, Moist mucous membranes - Neck Neck: Supple, no meningeal sign - Cardiac Cardiac: RRR, No murmur, Strong equal pulses - Respiratory Respiratory: No respiratory distress, Clear bilaterally - Abdomen Abdomen: Normal bowel sounds, Soft, Non tender, Non distended - Derm Derm: Normal color, Warm and dry, No rash - Extremities Extremities: No deformity, No edema, No calf tenderness / cord - Neuro Neuro: Alert and oriented X 3, [employer] 2-12 intact, Normal speech - Psych Psych: Normal mood, Normal affect Results - Vitals Vitals: Oxygen O2 Source Room air - EKG (time done) 0828 Rate: Rate (enter#) (97) Rhythm: NSR, LAE Switzer: Normal Intervals: Normal RI QRS: Normal Ischemia: Normal ST segments, Non specific changes Compare to prior EKG: Old EKG unavailable - Labs Labs: Laboratory Tests 10/14/20 10/14/20 10/14/20 08:44 08:44 08:44 WBC 19.2 H RBC 4.13 L Hgb 11.4 L Hct 36.8 L MCV 89.1 MCH 27.6 MCHC 31.0 L RDW 13.8 Plt Count 389 MPV 9.6 Neut # (Auto) Not Reportable Lymph # (Auto) Not Reportable [place] # (Auto) Not Reportable Eos # (Auto) Not Reportable Baso # (Auto) Not Reportable Absolute Nucleated RBC Not Reportable Total Counted 100 Band Neuts % (Manual) 1 Abnorm Lymph % (Manual) 0 Myelocytes % 1 H Nucleated RBC % Not Reportable Neutrophils # (Manual) 12.3 H Lymphocytes # (Manual) 2.1 Monocytes # (Manual) 3.1 H Eosinophils # (Manual) 1.0 H Basophils # (Manual) 0.6 H Differential Comment MANUAL DIFFERENTIAL WBC Morphology 1+ TOXIC GRANULATION Platelet Estimate NORMAL (130-450,000) Platelet Morphology NORMAL APPEARANCE RBC Morph Micro Appear 1+ POLYCHROMASIA D-Dimer > 1050.0 H Sodium 139 Potassium 3.7 Chloride 101 Carbon Dioxide 25 Anion Gap 13.0 BUN 19 Creatinine 1.4 H Estimated GFR (MDRD) 50 L Glucose 93 Calcium 9.3 Total Bilirubin 1.0 AST 33 ALT 31 Alkaline Phosphatase 69 B-Natriuretic Peptide Total Protein 8.8 H Albumin 4.1 Globulin 4.7 H Albumin/Globulin Ratio 0.9 L Lipase 50 10/14/20 08:44 WBC RBC Hgb Hct MCV MCH MCHC RDW Plt Count MPV Neut # (Auto) Lymph # (Auto) [place] # (Auto) Eos # (Auto) Baso # (Auto) Absolute Nucleated RBC Total Counted Band Neuts % (Manual) Abnorm Lymph % (Manual) Myelocytes % Nucleated RBC % Neutrophils # (Manual) Lymphocytes # (Manual) Monocytes # (Manual) Eosinophils # (Manual) Basophils # (Manual) Differential Comment WBC Morphology Platelet Estimate Platelet Morphology RBC Morph Micro Appear D-Dimer Sodium Potassium Chloride Carbon Dioxide Anion Gap BUN Creatinine Estimated GFR (MDRD) Glucose Calcium Total Bilirubin AST ALT Alkaline Phosphatase B-Natriuretic Peptide 116 H Total Protein Albumin Globulin Albumin/Globulin Ratio Lipase - Rads (name of study) CXR Radiology: Final report received, EMP read indepedently, See rad report CTA thorax Radiology: Final report received, EMP read indepedently, See rad report (No PE. Mod. R pleural effusion. L pneumonia, R infiltrate vs atelectasis.) PD MEDICAL DECISION MAKING - ED course Complexity details: reviewed old records, reviewed results, re-evaluated patient, considered differential, d/w patient ED course: Pt was worked up with labs, which showed an elevated WBC count and very elevated d-dimer. CTA chest was ultimately performed, which showed no PE, a moderate R pleural effusion, and appearance of LLL pneumonia. Pt was started on Levaquin. We have discussed the usual indications for return. Departure - Departure Disposition: 01 Home, Self Care Clinical Impression: Pneumonia Qualifiers: Pneumonia type: due to unspecified organism Laterality: bilateral Lung location: lower lobe of lung Qualified Code(s): J18.9 - Pneumonia, unspecified organism Condition: Stable Instructions: ED Pneumonia Adult Prescriptions: Levofloxacin [Levaquin] 500 mg PO DAILY #7 Comments: Scan does not show any blood clots or tumors. It appears that you have pneumonia on the left and a small amount potentially on the right, though it is hard to tell whether the right side is just some collapsed air cells from your pleural effusion. The pleural effusion is moderate in sizenot large enough that it needs to be emergently drained today, but if you are still feeling short of breath after the course of treatment for pneumonia, you should speak with your doctor about getting scheduled to have your pleural effusion drained by interventional radiology. If it becomes sufficiently large that you are having significant trouble breathing, it can be drained emergently in the emergency department. We will be switching her antibiotics today from doxycycline to Levaquin, which is better coverage for pneumonia. Please take the Levaquin every day, as directed, until the course is finished. Discharge Date/Time: 10/14/20 11:25
[2020-10-14 11:28] VITALS: BP 113/78
== END 2020-10-14 11:25 | disposition home or self-care (01) ==
LOC: ED 08:22
DX: J18.9 Pneumonia, unspecified organism (principal); J90 Pleural effusion, not elsewhere classified; R79.89 Other specified abnormal findings of blood chemistry; Z79.82 Long term (current) use of aspirin; R06.00 Dyspnea, unspecified; Z20.822 Contact with and (suspected) exposure to COVID-19
CPT/HCPCS: 36415; 71045; 71275; 80053; 83690; 83880; 85025; 85379; 93005; 99284; A9270; Q9967; U0004

== ENCOUNTER 2020-10-17 10:24 | Inpatient (IN) | payer MEDICARE ==
--- NOTE | 2020-10-17 10:38 | ED Physician Documentation ---
PD HPI URI - Stated complaint Stated Complaint: FOLLOW UP - Chief complaint Chief Complaint: Resp - History obtained from History obtained from: Patient - History of Present Illness Timing - onset: How many weeks ago (2) Timing duration: Weeks (2) Timing details: Gradual onset, Still present Associated symptoms: Fever, Chills, Productive cough, Chest pain (right lateral chest) Contributing factors: No: Sick contact, Travel, Immunocompromised, COPD / asthma Improves by: No: Medication (has been on Doxycycline and then Levaquin without improvement. No meds for cough, inhalers, steroids, etc.) Worsened by: Activity, Breathing, Other (cough) Similar symptoms before: Has not had sx before Recently seen: Clinic, Emergency Dept (3 days ago, with CXR, labs, CT-A chest (negative for PE but showing pneumonia and effusion).) Review of Systems Constitutional: reports: Fever, Chills PD PAST MEDICAL HISTORY - Past Medical History Cardiovascular: None Respiratory: None Neuro: Fainting Endocrine/Autoimmune: None GI: GERD : Kidney stones HEENT: None Psych: Anxiety, Claustrophobia Musculoskeletal: Osteoarthritis, Rheumatoid arthritis, Osteoporosis, Fatigue, Chronic back pain Derm: None - Past Surgical History Past Surgical History: Yes General: Cholecystectomy Ortho: Other Cardiovascular: Cardiac catheterization - Present Medications Home Medications: Ambulatory Orders Medication Instructions Recorded Confirmed Atorvastatin Calcium 40 mg PO DAILY 09/11/17 10/17/20 Aspirin [Aspirin EC] 81 mg PO DAILY 09/12/17 10/17/20 Furosemide 20 mg PO DAILY PRN 09/12/17 10/17/20 Metoprolol Succinate 25 mg PO DAILY 09/12/17 10/17/20 Acetaminophen [Tylenol] 162.5 mg PO Q6H PRN 06/10/18 10/17/20 traMADol [Ultram] 50 mg PO Q4-6H #20 tablet 06/12/18 10/17/20 Levofloxacin [Levaquin] 500 mg PO DAILY #7 10/14/20 10/17/20 Hydrocortisone [Cortef] 10 mg PO DAILY 10/17/20 10/17/20 - Allergies Allergies/Adverse Reactions: Allergies Allergy/AdvReac Type Severity Reaction Status Date / Time cefazolin Allergy Rash Verified 10/17/20 10:32 lorazepam Allergy Hallucinati Verified 10/17/20 10:32 ons nafcillin Allergy Rash Verified 10/17/20 10:32 amoxicillin AdvReac Unknown Verified 10/17/20 10:32 sulfamethoxazole AdvReac Itching Verified 10/17/20 10:32 [From Bactrim] trimethoprim [From Bactrim] AdvReac Itching Verified 10/17/20 10:32 - Social History Does the pt smoke?: No Smoking Status: Never smoker Does the pt drink ETOH?: Yes Does the pt have substance abuse?: No - Immunizations Immunizations are current?: Yes - POLST Patient has POLST: No POLST Status: Full Code PD ED PE NORMAL - Vitals Vital signs reviewed: Yes - General General: Alert and oriented X 3, Well developed/nourished - HEENT HEENT: Pharynx benign. No: Moist mucous membranes - Neck Neck: Supple, no meningeal sign, No adenopathy - Cardiac Cardiac: RRR, No murmur - Respiratory Respiratory: No respiratory distress. No: Clear bilaterally (Some scattered wheezing. There is decreased sounds in the right base. There are some coarse sounds in the left mid to upper field.) - Abdomen Abdomen: Soft, Non tender - Male Male : Deferred - Rectal Rectal: Deferred - Back Back: No CVA TTP - Derm Derm: Warm and dry. No: Normal color (some pallor) - Extremities Extremities: No deformity, No tenderness to palpate, Normal ROM s pain, No maycol ma, No calf tenderness / cord - Neuro Neuro: Alert and oriented X 3, No motor deficit, Normal speech Eye Opening: Spontaneous Motor: Obeys Commands Verbal: Oriented GCS Score: 15 Results - Vitals Vitals: Vital Signs - 24 hr 10/17/20 10/17/20 10/17/20 10:29 10:41 10:59 Temperature 36.6 C 37.8 C Heart Rate 130 H 130 H 124 H Respiratory 24 24 28 H Rate Blood Pressure 124/75 119/77 O2 Saturation 92 89 L 94 10/17/20 11:30 Temperature Heart Rate 119 H Respiratory 16 Rate Blood Pressure O2 Saturation Oxygen O2 Source Nasal cannula Oxygen Flow Rate 2 - Labs Labs: Laboratory Tests 10/17/20 10/17/20 10/17/20 11:15 11:15 11:15 WBC 34.1 H RBC 3.89 L Hgb 11.0 L Hct 33.9 L MCV 87.1 MCH 28.3 MCHC 32.4 RDW 13.9 Plt Count 375 MPV 9.5 Neut # (Auto) 27.8 H Lymph # (Auto) 1.2 L Bergen # (Auto) 4.5 H Eos # (Auto) 0.1 Baso # (Auto) 0.2 H Absolute Nucleated RBC 0.00 Nucleated RBC % 0.0 Manual Slide Review Indicated RBC Morph Micro Appear 2+ ANISOCYTOSIS Sodium 136 Potassium 4.2 Chloride 97 L Carbon Dioxide 24 Anion Gap 15.0 H BUN 16 Creatinine 1.4 H Estimated GFR (MDRD) 50 L Glucose 99 Lactic Acid 1.6 Calcium 9.0 Magnesium 1.9 Total Bilirubin 1.5 H AST 26 ALT 21 Alkaline Phosphatase 61 Total Protein 8.3 H Albumin 3.5 Globulin 4.8 H Albumin/Globulin Ratio 0.7 L Nasal Adenovirus (PCR) Nasal B. parapertussis DNA (PCR) Nasal Coronavir 229E PCR Nasal Coronavir HKU1 PCR Nasal Coronavir NL63 PCR Nasal Coronavir OC43 PCR Nasal Enterovir/Rhinovir PCR Nasal Influenza B PCR Nasal Influenza A PCR Nasal Parainfluen 1 PCR Nasal Parainfluen 2 PCR Nasal Parainfluen 3 PCR Nasal Parainfluen 4 PCR Nasal RSV (PCR) Nasal B.pertussis DNA PCR Nasal C.pneumoniae (PCR) Dequan Human Metapneumo PCR Nasal M.pneumoniae (PCR) Nasal SARS-CoV-2 (PCR) 10/17/20 11:20 WBC RBC Hgb Hct MCV MCH MCHC RDW Plt Count MPV Neut # (Auto) Lymph # (Auto) Bergen # (Auto) Eos # (Auto) Baso # (Auto) Absolute Nucleated RBC Nucleated RBC % Manual Slide Review RBC Morph Micro Appear Sodium Potassium Chloride Carbon Dioxide Anion Gap BUN Creatinine Estimated GFR (MDRD) Glucose Lactic Acid Calcium Magnesium Total Bilirubin AST ALT Alkaline Phosphatase Total Protein Albumin Globulin Albumin/Globulin Ratio Nasal Adenovirus (PCR) NOT DETECTED Nasal B. parapertussis DNA (PCR) NOT DETECTED Nasal Coronavir 229E PCR NOT DETECTED Nasal Coronavir HKU1 PCR NOT DETECTED Nasal Coronavir NL63 PCR NOT DETECTED Nasal Coronavir OC43 PCR NOT DETECTED Nasal Enterovir/Rhinovir PCR NOT DETECTED Nasal Influenza B PCR NOT DETECTED Nasal Influenza A PCR NOT DETECTED Nasal Parainfluen 1 PCR NOT DETECTED Nasal Parainfluen 2 PCR NOT DETECTED Nasal Parainfluen 3 PCR NOT DETECTED Nasal Parainfluen 4 PCR NOT DETECTED Nasal RSV (PCR) NOT DETECTED Nasal B.pertussis DNA PCR NOT DETECTED Nasal C.pneumoniae (PCR) NOT DETECTED Dequan Human Metapneumo PCR NOT DETECTED Nasal M.pneumoniae (PCR) NOT DETECTED Nasal SARS-CoV-2 (PCR) NOT DETECTED - Rads (name of study) chest xray Radiology: Prelim report reviewed (similar effusion right base. Infiltrates both bases. ), See rad report PD MEDICAL DECISION MAKING - ED course Complexity details: re-evaluated patient (Is breathing easier after nebulizer treatments. He is on nasal cannula 2 L and maintaining 92 to 94%. He does not appear in respiratory distress. However he is not improved with outpatient therapy for his pneumonia.), considered differential (Is been treated for outpatient pneumonia with worsening symptoms and now hypoxia on ambulation. He had recent evaluation for PE with a CT of the chest that was negative. He does feel somewhat improved with nebulizer treatment. I think he will need inpatient treatment at this point.), d/w patient Departure - Departure Disposition: 66 [facility] DC/Xfer Clinical Impression: Acute pneumonia, Hypoxia, Failure of outpatient treatment Condition: Stable Record reviewed to determine appropriate education?: Yes
[2020-10-17] MEDS ORDERED: cefTRIAXone 1 GM VIAL IVP STA (11:01)
[2020-10-17] MEDS ORDERED: AZITHROMYCIN INJ 500 MG in SODIUM CHLORIDE 0.9% 250 ML IV STA (11:01)
[2020-10-17] MEDS ORDERED: ALBUTEROL NEB 2.5 MG/3 ML INH STA ×2 (11:01→12:30)
[2020-10-17 11:22] LABS: BASOPHILS # (AUTO) 0.2 10^3/uL (0.0-0.1); BASOPHILS % (AUTO) 0.4 %; EOSINOPHILS # (AUTO) 0.1 10^3/uL (0.0-0.7); EOSINOPHILS % (AUTO) 0.3 %; LYMPHOCYTES # (AUTO) 1.2 10^3/uL (1.5-3.5); LYMPHOCYTES % (AUTO) 3.5 %; MEAN CORPUSCULAR HEMOGLOBIN 28.3 pg (27.0-31.0); MEAN CORPUSCULAR HGB CONC 32.4 g/dL (32.0-36.0); MEAN CORPUSCULAR VOLUME 87.1 fL (80.0-94.0); MEAN PLATELET VOLUME 9.5 fL (7.4-11.4); MONOCYTES # (AUTO) 4.5 10^3/uL (0.0-1.0); MONOCYTES % (AUTO) 13.1 %; NEUTROPHILS # (AUTO) 27.8 10^3/uL (1.5-6.6); NEUTROPHILS % (AUTO) 81.5 %; PLT - PLATELET COUNT 375 10^3/uL (130-450); RED BLOOD COUNT 3.89 10^6/uL (4.70-6.10); RED CELL DISTRIBUTION WIDTH 13.9 % (12.0-15.0); WHITE BLOOD COUNT 34.1 x10^3/uL (4.8-10.8)
--- NOTE | 2020-10-17 11:36 | XRAY Report ---
PROCEDURE: Chest 1 View X-Ray INDICATIONS: chest pain TECHNIQUE: One view of the chest was acquired. COMPARISON: 10/14/2020, 10/06/2020. Correlation is also made with chest CT, 10/14/2020. FINDINGS: Surgical changes and devices: Sternotomy changes are noted. Lungs and pleura: There is a small to moderate right-sided pleural effusion. Overlying presumed atele ctasis is seen. Streaky atelectasis is also seen at the right lung base. Mediastinum: Mediastinal contours appear normal. Heart size is normal. Bones and chest wall: No suspicious bony lesions. Age-appropriate degenerative changes are seen. Overlying soft tissues appear unremarkable. IMPRESSION: Stable study demonstrating a small to moderate right-sided pleural effusion with apparent atelectasis at both lung bases. Postoperative and degenerative changes are seen. Reviewed by: Misha Fleming MD on 10/17/2020 10:34 AM [facility] Approved by: Misha Fleming MD on 10/17/2020 10:34 AM [facility] Station ID: [id number]
[2020-10-17 11:37] LABS: ALBUMIN 3.5 g/dL (3.2-5.5); ALBUMIN/GLOBULIN RATIO 0.7 (1.0-2.2); BILIRUBIN,TOTAL 1.5 mg/dL (0.2-1.0); CREATININE 1.4 mg/dL (0.6-1.2); MAGNESIUM 1.9 mg/dL (1.7-2.8); TOTAL PROTEIN 8.3 g/dL (6.7-8.2)
[2020-10-17 11:44] LABS: RBC MORPHOLOGY (MULTIPLE) 2+ ANISOCYTOSIS (NORMAL)
[2020-10-17 12:18] LABS: C. PNEUMONIAE- RESP PCR PANEL NOT DETECTED
[2020-10-17] MEDS ORDERED: ONDANSETRON 4 MG/2 ML VIAL IVP PRN (12:30)
--- NOTE | 2020-10-17 12:36 | PROVIDER PROGRESS NOTE ---
Assessment/Plan - Lab Result Fish Bone Diagrams: 10/17/20 11:15 10/17/20 11:15 - Additional Planning My Orders: My Active Orders 10/17/20 Breakfast Regular Diet [DIET] 10/17/20 12:30 Telemetry- [RC] Q4HR Acetaminophen [Tylenol] 650 mg PO Q4HR PRN Ondansetron Inj [Zofran Inj] 4 mg IVP Q6HR PRN Sodium Chloride Flush 0.9% [Normal Saline Flush 0.9%] 10 ml IVP PRN PRN 10/17/20 12:31 Activity Orders [RC] Q2HR Admit \ Transfer \ Status [RC] ONCE IO [RC] IOSHIFT Initiate Bowel Care Protocol [RC] .protocol Initiate Flu Vaccine Screening [RC] ONCE Initiate Line Care Protocol [RC] QSHIFT Initiate Personal Care Protoco [RC] .protocol Initiate Pneumonia Vaccine Scr [RC] ONCE Vital Signs [RC] 0800,1600,0000 Code Status [OTHERS] Routine Condition of Patient [OTHERS] Routine DVT Prophylaxis [OTHERS] Routine 10/17/20 12:33 SCDs [RC] QSHIFT 10/17/20 13:00 metroNIDAZOLE/NS 500 mg/100 mL Q8H metroNIDAZOLE 500 MG/100 ML [Flagyl 500 mg/100 ml] 500 mg in 100 ml IV Q8H 10/17/20 17:00 Sodium Chloride Flush 0.9% [Normal Saline Flush 0.9%] 10 ml IVP 0100,0900,1700 10/18/20 07:00 Pantoprazole [Protonix] 40 mg PO QDAC 10/18/20 09:00 Azithromycin Inj [Zithromax Inj] 500 mg Sodium Chloride 0.9% [Normal Saline 0.9%] 250 ml IV DAILY Enoxaparin [Lovenox] 40 mg SUBQ DAILY cefTRIAXone [Rocephin] 1 gm Sodium Chloride 0.9% Minibag [Normal Saline 0.9% Minibag] 100 ml IV DAILY Objective Vital Signs: Vital Signs - 24 hr 10/17/20 10/17/20 10/17/20 10:29 10:41 10:59 Temperature 36.6 C 37.8 C Heart Rate 130 H 130 H 124 H Respiratory 24 24 28 H Rate Blood Pressure 124/75 119/77 O2 Saturation 92 89 L 94 10/17/20 11:30 Temperature Heart Rate 119 H Respiratory 16 Rate Blood Pressure O2 Saturation Oxygen O2 Source Nasal cannula Oxygen Flow Rate 2 I&O (Last 24 Hrs): Intake and Output Totals x24h 10/15/20 10/16/20 10/17/20 23:59 23:59 23:59 Intake Total 250 Balance 250 - Results Results: Laboratory Results WBC 34.1 x10^3/uL (4.8-10.8) H 10/17/20 11:15 RBC 3.89 10^6/uL (4.70-6.10) L 10/17/20 11:15 Hgb 11.0 g/dL (14.0-18.0) L 10/17/20 11:15 Hct 33.9 % (42.0-52.0) L 10/17/20 11:15 MCV 87.1 fL (80.0-94.0) 10/17/20 11:15 MCH 28.3 pg (27.0-31.0) 10/17/20 11:15 MCHC 32.4 g/dL (32.0-36.0) 10/17/20 11:15 RDW 13.9 % (12.0-15.0) 10/17/20 11:15 Plt Count 375 10^3/uL (130-450) 10/17/20 11:15 MPV 9.5 fL (7.4-11.4) 10/17/20 11:15 Neut # (Auto) 27.8 10^3/uL (1.5-6.6) H 10/17/20 11:15 Lymph # (Auto) 1.2 10^3/uL (1.5-3.5) L 10/17/20 11:15 Parker # (Auto) 4.5 10^3/uL (0.0-1.0) H 10/17/20 11:15 Eos # (Auto) 0.1 10^3/uL (0.0-0.7) 10/17/20 11:15 Baso # (Auto) 0.2 10^3/uL (0.0-0.1) H 10/17/20 11:15 Absolute Nucleated RBC 0.00 x10^3/uL 10/17/20 11:15 Nucleated RBC % 0.0 /100WBC 10/17/20 11:15 Manual Slide Review Indicated 10/17/20 11:15 RBC Morph Micro Appear 2+ ANISOCYTOSIS (NORMAL) 10/17/20 11:15 Sodium 136 mmol/L (135-145) 10/17/20 11:15 Potassium 4.2 mmol/L (3.5-5.0) 10/17/20 11:15 Chloride 97 mmol/L (101-111) L 10/17/20 11:15 Carbon Dioxide 24 mmol/L (21-32) 10/17/20 11:15 Anion Gap 15.0 (6-13) H 10/17/20 11:15 BUN 16 mg/dL (6-20) 10/17/20 11:15 Creatinine 1.4 mg/dL (0.6-1.2) H 10/17/20 11:15 Estimated GFR (MDRD) 50 (>89) L 10/17/20 11:15 Glucose 99 mg/dL (70-100) 10/17/20 11:15 Lactic Acid 1.6 mmol/L (0.5-2.2) 10/17/20 11:15 Calcium 9.0 mg/dL (8.5-10.3) 10/17/20 11:15 Magnesium 1.9 mg/dL (1.7-2.8) 10/17/20 11:15 Total Bilirubin 1.5 mg/dL (0.2-1.0) H 10/17/20 11:15 AST 26 IU/L (10-42) 10/17/20 11:15 ALT 21 IU/L (10-60) 10/17/20 11:15 Alkaline Phosphatase 61 IU/L (42-121) 10/17/20 11:15 Total Protein 8.3 g/dL (6.7-8.2) H 10/17/20 11:15 Albumin 3.5 g/dL (3.2-5.5) 10/17/20 11:15 Globulin 4.8 g/dL (2.1-4.2) H 10/17/20 11:15 Albumin/Globulin Ratio 0.7 (1.0-2.2) L 10/17/20 11:15 Nasal Adenovirus (PCR) NOT DETECTED 10/17/20 11:20 Nasal B. parapertussis DNA (PCR) NOT DETECTED 10/17/20 11:20 Nasal Coronavir 229E PCR NOT DETECTED 10/17/20 11:20 Nasal Coronavir HKU1 PCR NOT DETECTED 10/17/20 11:20 Nasal Coronavir NL63 PCR NOT DETECTED 10/17/20 11:20 Nasal Coronavir OC43 PCR NOT DETECTED 10/17/20 11:20 Nasal Enterovir/Rhinovir PCR NOT DETECTED 10/17/20 11:20 Nasal Influenza B PCR NOT DETECTED 10/17/20 11:20 Nasal Influenza A PCR NOT DETECTED 10/17/20 11:20 Nasal Parainfluen 1 PCR NOT DETECTED 10/17/20 11:20 Nasal Parainfluen 2 PCR NOT DETECTED 10/17/20 11:20 Nasal Parainfluen 3 PCR NOT DETECTED 10/17/20 11:20 Nasal Parainfluen 4 PCR NOT DETECTED 10/17/20 11:20 Nasal RSV (PCR) NOT DETECTED 10/17/20 11:20 Nasal B.pertussis DNA PCR NOT DETECTED 10/17/20 11:20 Nasal C.pneumoniae (PCR) NOT DETECTED 10/17/20 11:20 Dequan Human Metapneumo PCR NOT DETECTED 10/17/20 11:20 Nasal M.pneumoniae (PCR) NOT DETECTED 10/17/20 11:20 Nasal SARS-CoV-2 (PCR) NOT DETECTED 10/17/20 11:20 ABX Reporting Has patient been on IV antibiotics over the past 48 hours?: Yes
[2020-10-17] MEDS: ACETAMINOPHEN 325 MG TABLET PO PRN (15:16)
--- NOTE | 2020-10-17 15:21 | HISTORY & PHYSICAL EXAMINATION ---
History - Past Medical History Cardiovascular: reports: None Respiratory: reports: None Neuro: reports: Fainting Endocrine/Autoimmune: reports: None GI: reports: GERD : reports: Kidney stones HEENT: reports: None Psych: reports: Anxiety, Claustrophobia Musculoskeletal: reports: Osteoarthritis, Rheumatoid arthritis, Osteoporosis, Fatigue, Chronic back pain Derm: reports: None MRSA Hx?: No - Past Surgical History General: reports: Cholecystectomy Ortho: reports: Other Cardiovascular: reports: Cardiac catheterization - Family & Social History Family History: Mother: , Cancer, Father: Alive and Well, CAD, CVA/TIA Family History Comment/Other: pt state his mother from skin cancer, his father is 91-yrs old with right side stroke and CAD, but he still drive his car to take care of himself. he had two young daughter with him and living [facility]. - POLST Patient has POLST: No POLST Status: Full Code Meds/Allgy - Home Medications Home Medications: Ambulatory Orders Medication Instructions Recorded Confirmed Atorvastatin Calcium 40 mg PO DAILY 09/11/17 10/17/20 Aspirin [Aspirin EC] 81 mg PO DAILY 09/12/17 10/17/20 Furosemide 20 mg PO DAILY PRN 09/12/17 10/17/20 Metoprolol Succinate 25 mg PO DAILY 09/12/17 10/17/20 Acetaminophen [Tylenol] 162.5 mg PO Q6H PRN 06/10/18 10/17/20 traMADol [Ultram] 50 mg PO Q4-6H #20 tablet 06/12/18 10/17/20 Levofloxacin [Levaquin] 500 mg PO DAILY #7 10/14/20 10/17/20 Hydrocortisone [Cortef] 10 mg PO DAILY 10/17/20 10/17/20 - Allergies Allergies/Adverse Reactions: Allergies Allergy/AdvReac Type Severity Reaction Status Date / Time cefazolin Allergy Rash Verified 10/17/20 10:32 lorazepam Allergy Hallucinati Verified 10/17/20 10:32 ons nafcillin Allergy Rash Verified 10/17/20 10:32 amoxicillin AdvReac Unknown Verified 10/17/20 10:32 sulfamethoxazole AdvReac Itching Verified 10/17/20 10:32 [From Bactrim] trimethoprim [From Bactrim] AdvReac Itching Verified 10/17/20 10:32 Exam - Vital Signs Vital Signs: Vital Signs x48h Temp Pulse Pulse Pulse Resp BP BP 10/17/20 14:38 37.4 C 128 H 126 H 24 95/75 10/17/20 13:36 117 H 27 H 116/97 H 10/17/20 12:50 117 H 16 10/17/20 11:30 119 H 16 10/17/20 10:59 37.8 C 124 H 28 H 119/77 10/17/20 10:41 130 H 24 10/17/20 10:29 36.6 C 130 H 24 124/75 Pulse Ox 10/17/20 14:38 95 10/17/20 13:36 99 10/17/20 12:50 10/17/20 11:30 10/17/20 10:59 94 10/17/20 10:41 89 L 10/17/20 10:29 92 Conclusion/Plan - Lab Results Fish Bones: 10/17/20 11:15 10/17/20 11:15
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
[2020-10-17] MEDS ORDERED: IPRATROPIUM/ALBUTEROL 3 ML NEB INH PRN (16:24)
[2020-10-17] MEDS: ASPIRIN EC 81 MG TABLET PO SCH (16:27)
[2020-10-17] MEDS: SODIUM CHLORIDE FLUSH 0.9% 10 ML SYRINGE IVP SCH (16:30)
[2020-10-17] MEDS: metroNIDAZOLE 500 MG/100 ML 500 MG/100 ML BAG IV SCH (16:30)
[2020-10-17] MEDS ORDERED: oxyCODONE 5 MG TABLET PO PRN (16:38)
[2020-10-17] MEDS: METOPROLOL SUCCINATE 25 MG TABLET PO SCH (16:43)
[2020-10-17] MEDS: SODIUM CHLORIDE 0.9% 1,000 ML IV SCH (17:15)
[2020-10-17] MEDS: MORPHINE 2 MG/ML CARPUJECT IVP PRN ×3 (17:15→21:39)
[2020-10-17] MEDS: HYDROCORTISONE 10 MG TABLET PO SCH (17:15)
[2020-10-17] MEDS: ATORVASTATIN 40 MG TABLET PO SCH (21:06)
[2020-10-18] MEDS: metroNIDAZOLE 500 MG/100 ML 500 MG/100 ML BAG IV SCH ×3 (00:32→16:27)
[2020-10-18] MEDS: MORPHINE 2 MG/ML CARPUJECT IVP PRN ×4 (00:32→20:53)
[2020-10-18] MEDS: SODIUM CHLORIDE FLUSH 0.9% 10 ML SYRINGE IVP SCH ×3 (00:33→16:27)
[2020-10-18] MEDS: BENZOCAINE/MENTHOL LOZENGE MM PRN ×2 (01:00→03:58)
[2020-10-18] MEDS: PANTOPRAZOLE 40 MG TABLET PO SCH (05:49)
[2020-10-18] MEDS: SODIUM CHLORIDE 0.9% 1,000 ML IV SCH ×2 (05:49→21:50)
[2020-10-18] MEDS: ENOXAPARIN 40 MG/0.4 ML SYRINGE SUBQ SCH ×2 (08:02→08:41)
--- NOTE | 2020-10-18 08:05 | PROVIDER PROGRESS NOTE ---
Assessment/Plan - Problem List (1) Pneumonia Qualifiers: Pneumonia type: due to unspecified organism Laterality: bilateral Lung location: lower lobe of lung Qualified Code(s): J18.9 - Pneumonia, unspecified organism Assessment/Plan: Slight improvement in patient's white blood cell count from 34 yesterday to 31 today. Patient's oxygen saturation has improved on 2 L of oxygen via nasal cannula. We will continue antibiotics. Blood cultures are no growth to date. Thoracentesis ordered for 10/19/20 (2) Recurrent right pleural effusion Assessment/Plan: Pulmonary/Infectious versus cardiac cause. Pulmonary/Infectious cause more likely given patient's BNP of 81. Patient currently on IV antibiotics. Thoracentesis on 10/19/20 which will be both therapeutic and diagnostic. (3) Coronary artery disease Assessment/Plan: Patient underwent a CABG in November 2018. On metoprolol succinate 25 mg p.o. daily On atorvastatin 40 mg p.o. nightly. On a baby aspirin. (4) Hyperlipidemia Assessment/Plan: Atorvastatin 40 mg p.o. nightly (5) Chronic back pain Assessment/Plan: Tylenol and oxycodone ordered for pain. - Current Meds Current Meds: Current Medications Generic Name Dose Route Start Last Admin Trade Name Freq PRN Reason Stop Dose Admin Acetaminophen 650 mg 10/17/20 12:30 10/17/20 15:16 Acetaminophen 325 Mg Tablet PO 650 mg Q4HR PRN Administration Pain 1 to 4 Aspirin 81 mg 10/17/20 15:56 10/17/20 16:27 Aspirin Ec 81 Mg Tablet PO 81 mg DAILY JUAN ALBERTO Administration Atorvastatin Calcium 40 mg 10/17/20 21:00 10/17/20 21:06 Atorvastatin 40 Mg Tablet PO 40 mg QPM JUAN ALBERTO Administration Hydrocortisone 10 mg 10/17/20 17:00 10/17/20 17:15 Hydrocortisone 10 Mg Tablet PO 10 mg DAILYWM JUAN ALBERTO Administration Metronidazole 500 mg in 100 mls @ 100 mls/hr 10/17/20 13:30 10/18/20 02:01 Flagyl 500 Mg/100 Ml IV Infused Q8H JUAN ALBERTO Infusion Sodium Chloride 1,000 mls @ 100 mls/hr 10/17/20 17:00 10/18/20 05:49 Normal Saline 0.9% IV 100 mls/hr .Q10H JUAN ALBERTO Administration Metoprolol Succinate 25 mg 10/17/20 15:55 10/17/20 16:43 Metoprolol Succinate 25 Mg Tablet PO 25 mg DAILY JUAN ALBERTO Administration Morphine Sulfate 2 mg 10/17/20 16:38 10/18/20 03:58 Morphine 2 Mg/Ml Carpuject IVP 2 mg Q2HR PRN Administration PAIN Pantoprazole Sodium 40 mg 10/18/20 07:00 10/18/20 05:49 Pantoprazole 40 Mg Tablet PO Not Given QDAC JUAN ALBERTO Sodium Chloride 10 ml 10/17/20 17:00 10/18/20 00:33 Sodium Chloride Flush 0.9% 10 Ml Syringe IVP Not Given 0100,0900,1700 JUAN ALBERTO Throat Lozenges 1 lozenge 10/18/20 00:19 10/18/20 03:58 Benzocaine/Menthol Lozenge MM 1 lozenge Q2HR PRN Administration Throat pain - Lab Result Fish Bone Diagrams: 10/18/20 08:40 10/18/20 08:40 - Additional Planning My Orders: My Active Orders 10/17/20 12:30 Telemetry- [RC] Q4HR Acetaminophen [Tylenol] 650 mg PO Q4HR PRN Ondansetron Inj [Zofran Inj] 4 mg IVP Q6HR PRN Sodium Chloride Flush 0.9% [Normal Saline Flush 0.9%] 10 ml IVP PRN PRN 10/17/20 12:31 Activity Orders [RC] Q2HR IO [RC] IOSHIFT Initiate Bowel Care Protocol [RC] .protocol Initiate Line Care Protocol [RC] QSHIFT Initiate Personal Care Protoco [RC] .protocol Vital Signs [RC] Q4HR Code Status [OTHERS] Routine Condition of Patient [OTHERS] Routine DVT Prophylaxis [OTHERS] Routine 10/17/20 12:33 SCDs [RC] QSHIFT 10/17/20 13:30 metroNIDAZOLE 500 MG/100 ML [Flagyl 500 mg/100 ml] 500 mg in 100 ml IV Q8H 10/17/20 15:55 Metoprolol Succinate [Toprol Xl] 25 mg PO DAILY 10/17/20 15:56 Aspirin EC [Ecotrin] 81 mg PO DAILY 10/17/20 16:08 Blood Culture [CULTURE, BLOOD #1] [] Stat 10/17/20 16:15 Blood Culture [CULTURE, BLOOD #2] [] Stat 10/17/20 16:24 Nebulizer/MDI Tx. [RC] .qid Ipratropium/Albuterol [Duoneb] 3 ml INH RTQID PRN 10/17/20 16:38 Morphine Inj (Carpuject) [Morphine (Carpuject)] 2 mg IVP Q2HR PRN oxyCODONE [Roxicodone] 5 mg PO Q4HR PRN 10/17/20 17:00 Hydrocortisone [Cortef] 10 mg PO DAILYWM Sodium Chloride 0.9% [Normal Saline 0.9%] 1,000 ml IV 100 mls/hr Sodium Chloride Flush 0.9% [Normal Saline Flush 0.9%] 10 ml IVP 0100,0900,1700 10/17/20 17:01 Oxygen [Oxygen Therapy] [RC] .PRN 10/17/20 21:00 Atorvastatin [Lipitor] 40 mg PO QPM 10/18/20 00:19 Benzocaine/Menthol [Cepacol] 1 lozenge MM Q2HR PRN 10/18/20 07:00 Pantoprazole [Protonix] 40 mg PO QDAC 10/18/20 08:03 BMP - BASIC METABOLIC PANEL [CHEM] Routine CBC - COMP BLD CT W/AUTO DIFF [HEME] Routine 10/18/20 09:00 Azithromycin Inj [Zithromax Inj] 500 mg Sodium Chloride 0.9% [Normal Saline 0.9%] 250 ml IV DAILY Enoxaparin [Lovenox] 40 mg SUBQ DAILY cefTRIAXone [Rocephin] 1 gm Sodium Chloride 0.9% Minibag [Normal Saline 0.9% Minibag] 100 ml IV DAILY 10/19/20 05:00 BMP - BASIC METABOLIC PANEL [CHEM] DAILYLAB CBC - COMP BLD CT W/AUTO DIFF [HEME] DAILYLAB 10/19/20 08:00 Echo Transthoracic Complete [ECHO] Routine 10/20/20 05:00 BMP - BASIC METABOLIC PANEL [CHEM] DAILYLAB CBC - COMP BLD CT W/AUTO DIFF [HEME] DAILYLAB 10/21/20 05:00 BMP - BASIC METABOLIC PANEL [CHEM] DAILYLAB CBC - COMP BLD CT W/AUTO DIFF [HEME] DAILYLAB 10/22/20 05:00 BMP - BASIC METABOLIC PANEL [CHEM] DAILYLAB CBC - COMP BLD CT W/AUTO DIFF [HEME] DAILYLAB 10/23/20 05:00 BMP - BASIC METABOLIC PANEL [CHEM] DAILYLAB CBC - COMP BLD CT W/AUTO DIFF [HEME] DAILYLAB Subjective - Subjective Patient Reports: Other (Vertebrae in bed at time of exam. He reports breathing better today than yesterday. He is oxygen saturation is 96% on 2 L. His O2 sats were in the low 90s on 2 L. He denies chest pain, abdominal pain, fever or chills.) Objective Vital Signs: Vital Signs - 24 hr 10/17/20 10/17/20 10/17/20 10:29 10:41 10:59 Temperature 36.6 C 37.8 C Heart Rate 130 H 130 H 124 H Heart Rate [ Brachial] Heart Rate [ Monitoring electrodes] Respiratory 24 24 28 H Rate Blood Pressure 124/75 119/77 Blood Pressure [Left Brachial artery] O2 Saturation 92 89 L 94 10/17/20 10/17/20 10/17/20 11:30 12:50 13:36 Temperature Heart Rate 119 H 117 H 117 H Heart Rate [ Brachial] Heart Rate [ Monitoring electrodes] Respiratory 16 16 27 H Rate Blood Pressure 116/97 H Blood Pressure [Left Brachial artery] O2 Saturation 99 10/17/20 10/17/20 10/17/20 14:38 16:00 19:10 Temperature 37.4 C 37.3 C Heart Rate 105 H Heart Rate [ 128 H 118 H Brachial] Heart Rate [ 126 H Monitoring electrodes] Respiratory 24 18 18 Rate Blood Pressure Blood Pressure 95/75 103/63 [Left Brachial artery] O2 Saturation 95 97 10/17/20 10/18/20 10/18/20 21:22 00:26 03:50 Temperature 37.5 C 37.0 C 36.9 C Heart Rate Heart Rate [ 105 H Brachial] Heart Rate [ 108 H 111 H Monitoring electrodes] Respiratory 18 24 24 Rate Blood Pressure Blood Pressure 105/57 L 104/55 L 117/67 [Left Brachial artery] O2 Saturation 95 96 94 10/18/20 07:46 Temperature 36.6 C Heart Rate Heart Rate [ Brachial] Heart Rate [ 111 H Monitoring electrodes] Respiratory 22 Rate Blood Pressure Blood Pressure 120/68 [Left Brachial artery] O2 Saturation 95 Oxygen O2 Source Nasal cannula Oxygen Flow Rate 2 I&O (Last 24 Hrs): Intake and Output Totals x24h 10/16/20 10/17/20 10/18/20 23:59 23:59 23:59 Intake Total 850 1100 Output Total 200 175 Balance 650 925 General: Alert, Oriented x3, Cooperative, Mild distress HEENT: PERRLA, EOMI Neck: Supple, No JVD Neuro: Alert, Non Focal, Oriented Times 3 Cardiovascular: Other (Mildly tachycardic. Sinus rhythm) Respiratory: Chest non-tender, Other (Decreased breath sounds on the right. No overt crackles wheezing or rhonchi heard. Patient appears mildly dyspneic.) Abdomen: Normal bowel sounds, Soft, No tenderness Extremities: No clubbing, No cyanosis, No edema Skin: No rashes - Results Results: Laboratory Results WBC 34.1 x10^3/uL (4.8-10.8) H 10/17/20 11:15 RBC 3.89 10^6/uL (4.70-6.10) L 10/17/20 11:15 Hgb 11.0 g/dL (14.0-18.0) L 10/17/20 11:15 Hct 33.9 % (42.0-52.0) L 10/17/20 11:15 MCV 87.1 fL (80.0-94.0) 10/17/20 11:15 MCH 28.3 pg (27.0-31.0) 10/17/20 11:15 MCHC 32.4 g/dL (32.0-36.0) 10/17/20 11:15 RDW 13.9 % (12.0-15.0) 10/17/20 11:15 Plt Count 375 10^3/uL (130-450) 10/17/20 11:15 MPV 9.5 fL (7.4-11.4) 10/17/20 11:15 Neut # (Auto) 27.8 10^3/uL (1.5-6.6) H 10/17/20 11:15 Lymph # (Auto) 1.2 10^3/uL (1.5-3.5) L 10/17/20 11:15 [place] # (Auto) 4.5 10^3/uL (0.0-1.0) H 10/17/20 11:15 Eos # (Auto) 0.1 10^3/uL (0.0-0.7) 10/17/20 11:15 Baso # (Auto) 0.2 10^3/uL (0.0-0.1) H 10/17/20 11:15 Absolute Nucleated RBC 0.00 x10^3/uL 10/17/20 11:15 Nucleated RBC % 0.0 /100WBC 10/17/20 11:15 Manual Slide Review Indicated 10/17/20 11:15 RBC Morph Micro Appear 2+ ANISOCYTOSIS (NORMAL) 10/17/20 11:15 Sodium 136 mmol/L (135-145) 10/17/20 11:15 Potassium 4.2 mmol/L (3.5-5.0) 10/17/20 11:15 Chloride 97 mmol/L (101-111) L 10/17/20 11:15 Carbon Dioxide 24 mmol/L (21-32) 10/17/20 11:15 Anion Gap 15.0 (6-13) H 10/17/20 11:15 BUN 16 mg/dL (6-20) 10/17/20 11:15 Creatinine 1.4 mg/dL (0.6-1.2) H 10/17/20 11:15 Estimated GFR (MDRD) 50 (>89) L 10/17/20 11:15 Glucose 99 mg/dL (70-100) 10/17/20 11:15 Lactic Acid 1.6 mmol/L (0.5-2.2) 10/17/20 11:15 Calcium 9.0 mg/dL (8.5-10.3) 10/17/20 11:15 Magnesium 1.9 mg/dL (1.7-2.8) 10/17/20 11:15 Total Bilirubin 1.5 mg/dL (0.2-1.0) H 10/17/20 11:15 AST 26 IU/L (10-42) 10/17/20 11:15 ALT 21 IU/L (10-60) 10/17/20 11:15 Alkaline Phosphatase 61 IU/L (42-121) 10/17/20 11:15 B-Natriuretic Peptide 81 pg/mL (5-100) 10/17/20 11:15 Total Protein 8.3 g/dL (6.7-8.2) H 10/17/20 11:15 Albumin 3.5 g/dL (3.2-5.5) 10/17/20 11:15 Globulin 4.8 g/dL (2.1-4.2) H 10/17/20 11:15 Albumin/Globulin Ratio 0.7 (1.0-2.2) L 10/17/20 11:15 Nasal Adenovirus (PCR) NOT DETECTED 10/17/20 11:20 Nasal B. parapertussis DNA (PCR) NOT DETECTED 10/17/20 11:20 Nasal Coronavir 229E PCR NOT DETECTED 10/17/20 11:20 Nasal Coronavir HKU1 PCR NOT DETECTED 10/17/20 11:20 Nasal Coronavir NL63 PCR NOT DETECTED 10/17/20 11:20 Nasal Coronavir OC43 PCR NOT DETECTED 10/17/20 11:20 Nasal Enterovir/Rhinovir PCR NOT DETECTED 10/17/20 11:20 Nasal Influenza B PCR NOT DETECTED 10/17/20 11:20 Nasal Influenza A PCR NOT DETECTED 10/17/20 11:20 Nasal Parainfluen 1 PCR NOT DETECTED 10/17/20 11:20 Nasal Parainfluen 2 PCR NOT DETECTED 10/17/20 11:20 Nasal Parainfluen 3 PCR NOT DETECTED 10/17/20 11:20 Nasal Parainfluen 4 PCR NOT DETECTED 10/17/20 11:20 Nasal RSV (PCR) NOT DETECTED 10/17/20 11:20 Nasal B.pertussis DNA PCR NOT DETECTED 10/17/20 11:20 Nasal C.pneumoniae (PCR) NOT DETECTED 10/17/20 11:20 Dequan Human Metapneumo PCR NOT DETECTED 10/17/20 11:20 Nasal M.pneumoniae (PCR) NOT DETECTED 10/17/20 11:20 Nasal SARS-CoV-2 (PCR) NOT DETECTED 10/17/20 11:20 ABX Reporting Has patient been on IV antibiotics over the past 48 hours?: Yes
[2020-10-18] MEDS: ACETAMINOPHEN 325 MG TABLET PO PRN ×2 (08:27→13:00)
[2020-10-18] MEDS: ASPIRIN EC 81 MG TABLET PO SCH (08:27)
[2020-10-18] MEDS: HYDROCORTISONE 10 MG TABLET PO SCH (08:27)
[2020-10-18] MEDS: METOPROLOL SUCCINATE 25 MG TABLET PO SCH (08:40)
[2020-10-18] MEDS ORDERED: AZITHROMYCIN INJ 500 MG in SODIUM CHLORIDE 0.9% 250 ML IV SCH (09:00)
[2020-10-18 09:10] LABS: BASOPHILS # (AUTO) 0.1 10^3/uL (0.0-0.1); BASOPHILS % (AUTO) 0.3 %; EOSINOPHILS # (AUTO) 0.1 10^3/uL (0.0-0.7); EOSINOPHILS % (AUTO) 0.2 %; HGB - HEMOGLOBIN 9.5 g/dL (14.0-18.0); LYMPHOCYTES # (AUTO) 1.1 10^3/uL (1.5-3.5); LYMPHOCYTES % (AUTO) 3.5 %; MEAN CORPUSCULAR HEMOGLOBIN 28.5 pg (27.0-31.0); MEAN CORPUSCULAR HGB CONC 31.8 g/dL (32.0-36.0); MEAN CORPUSCULAR VOLUME 89.8 fL (80.0-94.0); MEAN PLATELET VOLUME 10.1 fL (7.4-11.4); MONOCYTES # (AUTO) 3.4 10^3/uL (0.0-1.0); MONOCYTES % (AUTO) 10.7 %; NEUTROPHILS # (AUTO) 26.6 10^3/uL (1.5-6.6); NEUTROPHILS % (AUTO) 83.8 %; PLT - PLATELET COUNT 327 10^3/uL (130-450); RED BLOOD COUNT 3.33 10^6/uL (4.70-6.10); RED CELL DISTRIBUTION WIDTH 14.1 % (12.0-15.0); WHITE BLOOD COUNT 31.7 x10^3/uL (4.8-10.8)
[2020-10-18 09:20] LABS: CALCIUM 8.4 mg/dL (8.5-10.3); CREATININE 1.3 mg/dL (0.6-1.2)
[2020-10-18] MEDS: cefTRIAXone 1 GM in SODIUM CHLORIDE 0.9% MINIBAG 100 ML IV SCH (09:54)
[2020-10-18 10:04] LABS: RBC MORPHOLOGY (MULTIPLE) 1+ ANISOCYTOSIS (NORMAL)
[2020-10-18] MEDS: AZITHROMYCIN INJ 500 MG in SODIUM CHLORIDE 0.9% 250 ML IV SCH (11:00)
[2020-10-18] MEDS: ATORVASTATIN 40 MG TABLET PO SCH (20:53)
[2020-10-19] MEDS: MORPHINE 2 MG/ML CARPUJECT IVP PRN ×4 (00:30→17:35)
[2020-10-19] MEDS: ACETAMINOPHEN 325 MG TABLET PO PRN (00:31)
[2020-10-19] MEDS: metroNIDAZOLE 500 MG/100 ML 500 MG/100 ML BAG IV SCH ×3 (00:31→17:22)
[2020-10-19] MEDS: SODIUM CHLORIDE FLUSH 0.9% 10 ML SYRINGE IVP SCH ×3 (01:07→17:22)
[2020-10-19] MEDS: SENNA 8.6 MG TABLET PO SCH ×4 (01:07→19:24)
[2020-10-19] MEDS: PANTOPRAZOLE 40 MG TABLET PO SCH (05:52)
[2020-10-19 06:11] LABS: BASOPHILS # (AUTO) 0.1 10^3/uL (0.0-0.1); BASOPHILS % (AUTO) 0.4 %; EOSINOPHILS # (AUTO) 0.1 10^3/uL (0.0-0.7); EOSINOPHILS % (AUTO) 0.5 %; HGB - HEMOGLOBIN 9.4 g/dL (14.0-18.0); LYMPHOCYTES # (AUTO) 1.1 10^3/uL (1.5-3.5); MEAN CORPUSCULAR HEMOGLOBIN 27.7 pg (27.0-31.0); MEAN CORPUSCULAR HGB CONC 30.5 g/dL (32.0-36.0); MEAN CORPUSCULAR VOLUME 90.9 fL (80.0-94.0); MEAN PLATELET VOLUME 10.1 fL (7.4-11.4); MONOCYTES # (AUTO) 2.3 10^3/uL (0.0-1.0); MONOCYTES % (AUTO) 10.2 %; NEUTROPHILS % (AUTO) 83.2 %; PLT - PLATELET COUNT 343 10^3/uL (130-450); RED BLOOD COUNT 3.39 10^6/uL (4.70-6.10); WHITE BLOOD COUNT 22.8 x10^3/uL (4.8-10.8)
[2020-10-19 06:17] LABS: INR 2.2 (0.8-1.2); PT - PROTHROMBIN TIME 23.2 secs (9.9-12.6)
[2020-10-19 06:18] LABS: CALCIUM 8.1 mg/dL (8.5-10.3); CREATININE 1.2 mg/dL (0.6-1.2)
[2020-10-19 07:24] LABS: PLATELET ESTIMATE, MANUAL NORMAL (130-450,000) (NORMAL); PLATELET MORPHOLOGY NORMAL APPEARANCE (NORMAL); RBC MORPHOLOGY (MULTIPLE) 2+ ANISOC (NORMAL)
[2020-10-19 07:25] LABS: DIFFERENTIAL COMMENT MANUAL=AUTO DIFF
[2020-10-19] MEDS: cefTRIAXone 1 GM in SODIUM CHLORIDE 0.9% MINIBAG 100 ML IV SCH (07:27)
[2020-10-19] MEDS: HYDROCORTISONE 10 MG TABLET PO SCH (07:27)
[2020-10-19] MEDS: ASPIRIN EC 81 MG TABLET PO SCH (07:27)
[2020-10-19] MEDS: polyethylene glycoL 3350 17 GM PACKET PO SCH (07:35)
[2020-10-19] MEDS ORDERED: PHYTONADIONE 10 MG/ML AMP IVP STA (08:13)
--- NOTE | 2020-10-19 08:16 | PROVIDER PROGRESS NOTE ---
Assessment/Plan - Problem List (1) Pneumonia Qualifiers: Pneumonia type: due to unspecified organism Laterality: bilateral Lung location: lower lobe of lung Qualified Code(s): J18.9 - Pneumonia, unspecified organism Assessment/Plan: Further improvement in the patient's white blood cell count from 31 yesterday to 22 today. Patient's oxygen saturation maintains in the mid 90's on 2 L of oxygen via nasal cannula. We will continue antibiotics. Blood cultures are no growth to date. Thoracentesis could not be done today because the patient's INR was 2.2. He was given vitamin K 10 mg x 1 and fresh frozen plasma. Recheck of his INR was 1.9. The goal is to get his INR to 1.5 before the procedure can be done. Anticipating this will be the case tomorrow. The thoracentesis will be both therapeutic and diagnostic. (2) Recurrent right pleural effusion Assessment/Plan: Thoracentesis could not be done today because the patient's INR was 2.2. He was given vitamin K 10 mg x 1 and fresh frozen plasma. Recheck of his INR was 1.9. The goal is to get his INR to 1.5 before the procedure can be done. Anticipating this will be the case tomorrow. The thoracentesis will be both therapeutic and diagnostic. (3) Coronary artery disease Assessment/Plan: On metoprolol succinate 25 mg p.o. daily On atorvastatin 40 mg p.o. nightly. On a baby aspirin. (4) Hyperlipidemia Assessment/Plan: Atorvastatin 40 mg p.o. nightly (5) Chronic back pain Assessment/Plan: Tylenol and oxycodone ordered for pain. - Current Meds Current Meds: Current Medications Generic Name Dose Route Start Last Admin Trade Name Freq PRN Reason Stop Dose Admin Acetaminophen 650 mg 10/17/20 12:30 10/19/20 00:31 Acetaminophen 325 Mg Tablet PO 650 mg Q4HR PRN Administration Pain 1 to 4 Aspirin 81 mg 10/17/20 15:56 10/19/20 07:27 Aspirin Ec 81 Mg Tablet PO 81 mg DAILY JUAN ALBERTO Administration Atorvastatin Calcium 40 mg 10/17/20 21:00 10/18/20 20:53 Atorvastatin 40 Mg Tablet PO 40 mg QPM JUAN ALBERTO Administration Enoxaparin Sodium 40 mg 10/18/20 09:00 10/18/20 08:41 Enoxaparin 40 Mg/0.4 Ml Syringe SUBQ 40 mg DAILY JUAN ALBERTO Administration Hydrocortisone 10 mg 10/17/20 17:00 10/19/20 07:27 Hydrocortisone 10 Mg Tablet PO 10 mg DAILYWM JUAN ALBERTO Administration Ceftriaxone Sodium 1 gm/ 100 mls @ 200 mls/hr 10/18/20 09:00 10/19/20 07:27 Sodium Chloride IV 200 mls/hr DAILY JUAN ALBERTO Administration Metronidazole 500 mg in 100 mls @ 100 mls/hr 10/17/20 13:30 10/19/20 02:27 Flagyl 500 Mg/100 Ml IV Infused Q8H JUAN ALBERTO Infusion Sodium Chloride 1,000 mls @ 100 mls/hr 10/17/20 17:00 10/19/20 02:00 Normal Saline 0.9% IV 100 mls/hr .Q10H JUAN ALBERTO Infusion Azithromycin 500 mg/ Sodium 250 mls @ 250 mls/hr 10/18/20 10:30 10/18/20 12:15 Chloride IV 10/19/20 11:29 Infused 1030 JUAN ALBERTO Infusion Metoprolol Succinate 25 mg 10/17/20 15:55 10/18/20 08:40 Metoprolol Succinate 25 Mg Tablet PO 25 mg DAILY JUAN ALBERTO Administration Morphine Sulfate 2 mg 10/17/20 16:38 10/19/20 07:28 Morphine 2 Mg/Ml Carpuject IVP 2 mg Q2HR PRN Administration PAIN Pantoprazole Sodium 40 mg 10/18/20 07:00 10/19/20 05:52 Pantoprazole 40 Mg Tablet PO Not Given QDAC JUAN ALBERTO Polyethylene Glycol 17 gm 10/19/20 09:00 10/19/20 07:35 Polyethylene Glycol 3350 17 Gm Packet PO Not Given DAILY JUAN ALBERTO Senna 17.2 - 25.8 mg 10/19/20 01:00 10/19/20 07:35 Senna 8.6 Mg Tablet PO 10/19/20 19:01 Not Given Q6H JUAN ALBERTO Sodium Chloride 10 ml 10/17/20 17:00 10/19/20 01:07 Sodium Chloride Flush 0.9% 10 Ml Syringe IVP Not Given 0100,0900,1700 JUAN ALBERTO Throat Lozenges 1 lozenge 10/18/20 00:19 10/18/20 03:58 Benzocaine/Menthol Lozenge MM 1 lozenge Q2HR PRN Administration Throat pain - Lab Result Fish Bone Diagrams: 10/19/20 05:08 10/19/20 05:08 - Additional Planning My Orders: My Active Orders 10/18/20 09:00 Enoxaparin [Lovenox] 40 mg SUBQ DAILY cefTRIAXone [Rocephin] 1 gm Sodium Chloride 0.9% Minibag [Normal Saline 0.9% Minibag] 100 ml IV DAILY 10/18/20 10:30 Azithromycin Inj [Zithromax Inj] 500 mg Sodium Chloride 0.9% [Normal Saline 0.9%] 250 ml IV 1030 10/19/20 01:00 Senna [Senokot] 17.2 - 25.8 mg PO Q6H 10/19/20 08:00 Echo Transthoracic Complete [ECHO] Routine Thoracentesis Puncture [US] Routine CELL COUNT, BF [BF] Routine CUL, ANAEROBIC (QUEST) [REFLAB] Routine 10/19/20 08:13 Phytonadione Inj (Adult) [Vitamin K (Adult)] 10 mg IVP ONCE STA 10/19/20 08:14 Transfuse Fresh Frozen Plasma [RC] .ONCE BLOOD TYPE Stat FRESH FROZEN PLASMA Stat TYPE AND SCREEN Stat 10/19/20 09:00 polyethylene glycoL 3350 [Miralax] 17 gm PO DAILY 10/20/20 05:00 BMP - BASIC METABOLIC PANEL [CHEM] DAILYLAB CBC - COMP BLD CT W/AUTO DIFF [HEME] DAILYLAB 10/21/20 05:00 BMP - BASIC METABOLIC PANEL [CHEM] DAILYLAB CBC - COMP BLD CT W/AUTO DIFF [HEME] DAILYLAB 10/22/20 05:00 BMP - BASIC METABOLIC PANEL [CHEM] DAILYLAB CBC - COMP BLD CT W/AUTO DIFF [HEME] DAILYLAB 10/23/20 05:00 BMP - BASIC METABOLIC PANEL [CHEM] DAILYLAB CBC - COMP BLD CT W/AUTO DIFF [HEME] DAILYLAB Subjective - Subjective Patient Reports: Other (He was seated up in the bedside chair at time of exam. He reports improvement in his breathing however he appears somewhat dyspneic. He seems guarded when breathing as if anticipating pain. INR this morning was 2.2. This limited the ability to do thoracentesis) Objective Vital Signs: Vital Signs - 24 hr 10/18/20 10/18/20 10/18/20 13:00 16:45 20:52 Temperature 36.6 C 36.4 C L 36.9 C Heart Rate Heart Rate [ 93 99 102 H Monitoring electrodes] Respiratory 20 20 20 Rate Blood Pressure 102/61 115/65 131/71 H [Left Brachial artery] O2 Saturation 95 95 95 10/18/20 10/19/20 10/19/20 21:00 00:15 05:00 Temperature 37.9 C 36.6 C Heart Rate 102 H Heart Rate [ 106 H 98 Monitoring electrodes] Respiratory 18 18 19 Rate Blood Pressure 118/58 L 117/74 [Left Brachial artery] O2 Saturation 94 96 Oxygen O2 Source Nasal cannula Oxygen Flow Rate 2 I&O (Last 24 Hrs): Intake and Output Totals x24h 10/17/20 10/18/20 10/19/20 23:59 23:59 23:59 Intake Total 850 3520.000 416.667 Output Total 200 650 150 Balance 650 2870.000 266.667 General: Alert, Oriented x3, Mild distress, Moderate distress HEENT: PERRLA, EOMI Neck: Supple, No JVD Neuro: Alert, Non Focal, Oriented Times 3 Cardiovascular: Other (Tachycardic) Respiratory: Other (Decreased air movement on the right side of the lungs. no overt wheezing or crackles heard. Mild pleuritic pain noted) Abdomen: Normal bowel sounds, Soft, No tenderness Extremities: No clubbing, No cyanosis, No edema Skin: No rashes - Results Results: Laboratory Results WBC 22.8 x10^3/uL (4.8-10.8) H 10/19/20 05:08 RBC 3.39 10^6/uL (4.70-6.10) L 10/19/20 05:08 Hgb 9.4 g/dL (14.0-18.0) L 10/19/20 05:08 Hct 30.8 % (42.0-52.0) L 10/19/20 05:08 MCV 90.9 fL (80.0-94.0) 10/19/20 05:08 MCH 27.7 pg (27.0-31.0) 10/19/20 05:08 MCHC 30.5 g/dL (32.0-36.0) L 10/19/20 05:08 RDW 14.0 % (12.0-15.0) 10/19/20 05:08 Plt Count 343 10^3/uL (130-450) 10/19/20 05:08 MPV 10.1 fL (7.4-11.4) 10/19/20 05:08 Neut # (Auto) 19.0 10^3/uL (1.5-6.6) H 10/19/20 05:08 Lymph # (Auto) 1.1 10^3/uL (1.5-3.5) L 10/19/20 05:08 [place] # (Auto) 2.3 10^3/uL (0.0-1.0) H 10/19/20 05:08 Eos # (Auto) 0.1 10^3/uL (0.0-0.7) 10/19/20 05:08 Baso # (Auto) 0.1 10^3/uL (0.0-0.1) 10/19/20 05:08 Absolute Nucleated RBC 0.00 x10^3/uL 10/19/20 05:08 Band Neuts % (Manual) Not Reportable 10/19/20 05:08 Abnorm Lymph % (Manual) Not Reportable 10/19/20 05:08 Nucleated RBC % 0.0 /100WBC 10/19/20 05:08 Neutrophils # (Manual) Not Reportable 10/19/20 05:08 Lymphocytes # (Manual) Not Reportable 10/19/20 05:08 Monocytes # (Manual) Not Reportable 10/19/20 05:08 Eosinophils # (Manual) Not Reportable 10/19/20 05:08 Basophils # (Manual) Not Reportable 10/19/20 05:08 Differential Comment MANUAL=AUTO DIFF 10/19/20 05:08 Manual Slide Review Indicated 10/19/20 05:08 WBC Morphology NORMAL APPEARANCE (NORMAL) 10/19/20 05:08 Platelet Estimate NORMAL (130-450,000) (NORMAL) 10/19/20 05:08 Platelet Morphology NORMAL APPEARANCE (NORMAL) 10/19/20 05:08 RBC Morph Micro Appear 2+ ANISOC (NORMAL) 10/19/20 05:08 PT 23.2 secs (9.9-12.6) H 10/19/20 05:08 INR 2.2 (0.8-1.2) H 10/19/20 05:08 Sodium 134 mmol/L (135-145) L 10/19/20 05:08 Potassium 3.6 mmol/L (3.5-5.0) 10/19/20 05:08 Chloride 101 mmol/L (101-111) 10/19/20 05:08 Carbon Dioxide 23 mmol/L (21-32) 10/19/20 05:08 Anion Gap 10.0 (6-13) 10/19/20 05:08 BUN 18 mg/dL (6-20) 10/19/20 05:08 Creatinine 1.2 mg/dL (0.6-1.2) 10/19/20 05:08 Estimated GFR (MDRD) 60 (>89) L 10/19/20 05:08 Glucose 90 mg/dL (70-100) 10/19/20 05:08 Lactic Acid 1.6 mmol/L (0.5-2.2) 10/17/20 11:15 Calcium 8.1 mg/dL (8.5-10.3) L 10/19/20 05:08 Magnesium 1.9 mg/dL (1.7-2.8) 10/17/20 11:15 Total Bilirubin 1.5 mg/dL (0.2-1.0) H 10/17/20 11:15 AST 26 IU/L (10-42) 10/17/20 11:15 ALT 21 IU/L (10-60) 10/17/20 11:15 Alkaline Phosphatase 61 IU/L (42-121) 10/17/20 11:15 B-Natriuretic Peptide 81 pg/mL (5-100) 10/17/20 11:15 Total Protein 8.3 g/dL (6.7-8.2) H 10/17/20 11:15 Albumin 3.5 g/dL (3.2-5.5) 10/17/20 11:15 Globulin 4.8 g/dL (2.1-4.2) H 10/17/20 11:15 Albumin/Globulin Ratio 0.7 (1.0-2.2) L 10/17/20 11:15 Nasal Adenovirus (PCR) NOT DETECTED 10/17/20 11:20 Nasal B. parapertussis DNA (PCR) NOT DETECTED 10/17/20 11:20 Nasal Coronavir 229E PCR NOT DETECTED 10/17/20 11:20 Nasal Coronavir HKU1 PCR NOT DETECTED 10/17/20 11:20 Nasal Coronavir NL63 PCR NOT DETECTED 10/17/20 11:20 Nasal Coronavir OC43 PCR NOT DETECTED 10/17/20 11:20 Nasal Enterovir/Rhinovir PCR NOT DETECTED 10/17/20 11:20 Nasal Influenza B PCR NOT DETECTED 10/17/20 11:20 Nasal Influenza A PCR NOT DETECTED 10/17/20 11:20 Nasal Parainfluen 1 PCR NOT DETECTED 10/17/20 11:20 Nasal Parainfluen 2 PCR NOT DETECTED 10/17/20 11:20 Nasal Parainfluen 3 PCR NOT DETECTED 10/17/20 11:20 Nasal Parainfluen 4 PCR NOT DETECTED 10/17/20 11:20 Nasal RSV (PCR) NOT DETECTED 10/17/20 11:20 Nasal B.pertussis DNA PCR NOT DETECTED 10/17/20 11:20 Nasal C.pneumoniae (PCR) NOT DETECTED 10/17/20 11:20 Dequan Human Metapneumo PCR NOT DETECTED 10/17/20 11:20 Nasal M.pneumoniae (PCR) NOT DETECTED 10/17/20 11:20 Nasal SARS-CoV-2 (PCR) NOT DETECTED 10/17/20 11:20 ABX Reporting Has patient been on IV antibiotics over the past 48 hours?: Yes
[2020-10-19] MEDS: ENOXAPARIN 40 MG/0.4 ML SYRINGE SUBQ SCH (08:40)
[2020-10-19] MEDS: METOPROLOL SUCCINATE 25 MG TABLET PO SCH (08:45)
[2020-10-19] MEDS: SODIUM CHLORIDE 0.9% 1,000 ML IV SCH ×3 (11:07→21:24)
[2020-10-19] MEDS: AZITHROMYCIN INJ 500 MG in SODIUM CHLORIDE 0.9% 250 ML IV SCH (11:11)
[2020-10-19 13:08] LABS: INR 1.9 (0.8-1.2); PT - PROTHROMBIN TIME 20.3 secs (9.9-12.6)
[2020-10-19] MEDS: ATORVASTATIN 40 MG TABLET PO SCH (21:24)
[2020-10-20] MEDS: metroNIDAZOLE 500 MG/100 ML 500 MG/100 ML BAG IV SCH ×2 (01:14→19:35)
[2020-10-20] MEDS: SODIUM CHLORIDE FLUSH 0.9% 10 ML SYRINGE IVP SCH ×3 (01:17→17:39)
[2020-10-20] MEDS: MORPHINE 2 MG/ML CARPUJECT IVP PRN ×7 (02:10→21:34)
[2020-10-20 05:32] LABS: BASOPHILS % (AUTO) 0.6 %; EOSINOPHILS % (AUTO) 0.4 %; LYMPHOCYTES % (AUTO) 5.7 %; MEAN CORPUSCULAR HEMOGLOBIN 27.3 pg (27.0-31.0); MEAN CORPUSCULAR HGB CONC 30.5 g/dL (32.0-36.0); MEAN CORPUSCULAR VOLUME 89.6 fL (80.0-94.0); MEAN PLATELET VOLUME 9.9 fL (7.4-11.4); MONOCYTES % (AUTO) 14.3 %; NEUTROPHILS % (AUTO) 77.8 %; PLT - PLATELET COUNT 352 10^3/uL (130-450); RED BLOOD COUNT 3.66 10^6/uL (4.70-6.10); RED CELL DISTRIBUTION WIDTH 14.2 % (12.0-15.0); WHITE BLOOD COUNT 24.7 x10^3/uL (4.8-10.8)
[2020-10-20 05:36] LABS: ABNORMAL LYMPHS % (MANUAL) 0 %; BAND NEUTROPHILS % (MANUAL) 0 %
[2020-10-20 05:42] LABS: CALCIUM 8.3 mg/dL (8.5-10.3); CREATININE 1.1 mg/dL (0.6-1.2); INR 2.1 (0.8-1.2); PT - PROTHROMBIN TIME 22.6 secs (9.9-12.6)
[2020-10-20 05:46] LABS: BASOPHILS # (MANUAL) 0.5 10^3/uL (0-0.1); BASOPHILS % (MANUAL) 2 %; DIFFERENTIAL COMMENT MANUAL DIFFERENTIAL; LYMPHOCYTES # (MANUAL) 1.5 10^3/uL (1.5-3.5); LYMPHOCYTES % (MANUAL) 6 %; MONOCYTES # (MANUAL) 3.5 10^3/uL (0.0-1.0); PLATELET ESTIMATE, MANUAL NORMAL (130-450,000) (NORMAL); PLATELET MORPHOLOGY NORMAL APPEARANCE (NORMAL); RBC MORPHOLOGY (MULTIPLE) NORMAL APPEARANCE (NORMAL)
[2020-10-20] MEDS: PANTOPRAZOLE 40 MG TABLET PO SCH (06:17)
[2020-10-20] MEDS ORDERED: PHYTONADIONE INJ (ADULT) 10 MG in SODIUM CHLORIDE 0.9% 50 ML IV ONE ×2 (06:52→16:00)
[2020-10-20] MEDS: HYDROCORTISONE 10 MG TABLET PO SCH (08:04)
[2020-10-20] MEDS: METOPROLOL SUCCINATE 25 MG TABLET PO SCH (08:04)
[2020-10-20] MEDS: cefTRIAXone 1 GM in SODIUM CHLORIDE 0.9% MINIBAG 100 ML IV SCH (08:04)
[2020-10-20] MEDS: polyethylene glycoL 3350 17 GM PACKET PO SCH (08:06)
[2020-10-20] MEDS: ENOXAPARIN 40 MG/0.4 ML SYRINGE SUBQ SCH (08:06)
[2020-10-20] MEDS ORDERED: cefTRIAXone 1 GM in SODIUM CHLORIDE 0.9% MINIBAG 100 ML IV SCH (08:30)
[2020-10-20] MEDS: SODIUM CHLORIDE FLUSH 0.9% 10 ML SYRINGE IVP PRN ×3 (09:10→13:58)
--- NOTE | 2020-10-20 11:06 | PROVIDER PROGRESS NOTE ---
Assessment/Plan - Problem List (1) Pneumonia Assessment/Plan: Patient still need oxygen and saturation is dropped to 92% with 2 L oxygen, Patient still had elevated WBC to 25, CRP 25, CTA and chest x-ray show bilaterally infiltrated, And with moderate Right pleural effusion. We will add vancomycin and to nasal MRSA screen. Continue Rocephin 2 gram daily. check chest x-ray. Hopefully patient had thoracentesis on this afternoon if patient's PT and INR is drop for pt can have Thoracentesis. Patient had history of low EF in echo. New echo show patient had a EF 50-55%. Patient had bilaterally pleural effusion and mainly in the right side with moderate size. We will give patient low dosage of Lasix to try to improve patient respiratory status. Order new chest x-ray to monitor patient fluids in the lung. (2) Recurrent right pleural effusion Patient INR is still at 2.1. Patient had no blood thinner in his home meds. We will hold aspirin and Lovenox, Patient was already given vitamin K and FFP, We will check INR in the afternoon, Hopefully patient can have thoracentesis in this afternoon. (3)hypoxia Patient Needed 2 L oxygen with 92% of oxygen saturation. It is likely combination of pneumonia with pleural effusion. We will have new chest x-ray, continue antibiotics, Add low dosage of Lasix, Hopefully to have thoracentesis this afternoon. (4)ALFONSO Resolved (5) Coronary artery disease Patient denies chest pain. New echo show patient had EF 50% to 55%. Continue metoprolol succinate 25 mg p.o. daily, Hold baby aspirin for thoracentesis now. (6) Hyperlipidemia Assessment/Plan: Atorvastatin 40 mg p.o. nightly (7) Chronic back pain Assessment/Plan: Tylenol and oxycodone ordered for pain. - Current Meds Current Meds: Current Medications Generic Name Dose Route Start Last Admin Trade Name Freq PRN Reason Stop Dose Admin Acetaminophen 650 mg 10/17/20 12:30 10/19/20 00:31 Acetaminophen 325 Mg Tablet PO 650 mg Q4HR PRN Administration Pain 1 to 4 Atorvastatin Calcium 40 mg 10/17/20 21:00 10/19/20 21:24 Atorvastatin 40 Mg Tablet PO 40 mg QPM JUAN ALBERTO Administration Hydrocortisone 10 mg 10/17/20 17:00 10/20/20 08:04 Hydrocortisone 10 Mg Tablet PO 10 mg DAILYWM JUAN ALBERTO Administration Ceftriaxone Sodium 1 gm/ 100 mls @ 200 mls/hr 10/20/20 08:30 10/20/20 09:40 Sodium Chloride IV 10/20/20 12:00 Infused ONCE JUAN ALBERTO Infusion Metoprolol Succinate 25 mg 10/17/20 15:55 10/20/20 08:04 Metoprolol Succinate 25 Mg Tablet PO 25 mg DAILY JUAN ALBERTO Administration Morphine Sulfate 2 mg 10/17/20 16:38 10/20/20 08:07 Morphine 2 Mg/Ml Carpuject IVP 2 mg Q2HR PRN Administration PAIN Pantoprazole Sodium 40 mg 10/18/20 07:00 10/20/20 06:17 Pantoprazole 40 Mg Tablet PO Not Given QDAC JUAN ALBERTO Polyethylene Glycol 17 gm 10/19/20 09:00 10/20/20 08:06 Polyethylene Glycol 3350 17 Gm Packet PO Not Given DAILY JUAN ALBERTO Sodium Chloride 10 ml 10/17/20 12:30 10/20/20 09:10 Sodium Chloride Flush 0.9% 10 Ml Syringe IVP 10 ml PRN PRN Administration NEEDED PER PROVIDER ORDERS Sodium Chloride 10 ml 10/17/20 17:00 10/20/20 08:06 Sodium Chloride Flush 0.9% 10 Ml Syringe IVP Not Given 0100,0900,1700 JUAN ALBERTO Throat Lozenges 1 lozenge 10/18/20 00:19 10/18/20 03:58 Benzocaine/Menthol Lozenge MM 1 lozenge Q2HR PRN Administration Throat pain - Lab Result Fish Bone Diagrams: 10/20/20 05:17 10/20/20 05:17 - Additional Planning My Orders: My Active Orders 10/20/20 MRSA (NASAL) PCR SCREEN Urgent Evaluate and Treat PT [PT] Routine 10/20/20 08:23 Transfuse Fresh Frozen Plasma [RC] .ONCE 10/20/20 09:18 Incentive Spirometry - RT [RC] TID Out of bed 3+ hours today [RC] TID 10/20/20 10:21 Vancomycin: Pharmacy To Dose [Vancomycin-Pharmacy To Dose] 1 each MC ONCE PRN 10/20/20 11:04 Chest 1 View X-Ray [XR] Routine 10/20/20 12:00 FUROSEMIDE INJ 20mg VIAL [LASIX INJ 20mg VIAL] 20 mg IVP ONCE 10/20/20 13:00 PT WITH INR [COAG] Timed 10/21/20 05:00 CRP - C-REACTIVE PROTEIN [CHEM] DAILYLAB PT WITH INR [COAG] DAILYLAB 10/21/20 09:00 Furosemide [Lasix] 20 mg PO DAILY cefTRIAXone [Rocephin] 2 gm Sodium Chloride 0.9% Minibag [Normal Saline 0.9% Minibag] 100 ml IV DAILY 10/22/20 05:00 CRP - C-REACTIVE PROTEIN [CHEM] DAILYLAB 10/23/20 05:00 CRP - C-REACTIVE PROTEIN [CHEM] DAILYLAB 10/24/20 05:00 CRP - C-REACTIVE PROTEIN [CHEM] DAILYLAB Subjective - Subjective Patient Reports: Shortness of Breath Objective Vital Signs: Vital Signs - 24 hr 10/19/20 10/19/20 10/19/20 11:37 13:06 16:05 Temperature 36.7 C 36.7 C 37.0 C Heart Rate 103 H Heart Rate [ 103 H 108 H Brachial] Heart Rate [ Monitoring electrodes] Respiratory 19 18 18 Rate Blood Pressure Blood Pressure 111/60 114/95 H [Left Brachial artery] O2 Saturation 95 96 96 10/19/20 10/19/20 10/20/20 21:00 23:48 05:08 Temperature 37.8 C 36.8 C 37.1 C Heart Rate Heart Rate [ 110 H Brachial] Heart Rate [ 110 H 118 H Monitoring electrodes] Respiratory 18 19 18 Rate Blood Pressure Blood Pressure 112/66 124/69 118/74 [Left Brachial artery] O2 Saturation 92 95 94 10/20/20 10/20/20 10/20/20 07:46 10:00 10:19 Temperature 37.4 C 36.7 C Heart Rate 105 H Heart Rate [ 107 H Brachial] Heart Rate [ 109 H Monitoring electrodes] Respiratory 19 20 18 Rate Blood Pressure Blood Pressure 115/74 120/66 [Left Brachial artery] O2 Saturation 92 92 10/20/20 10:56 Temperature 37.2 C Heart Rate 105 H Heart Rate [ Brachial] Heart Rate [ Monitoring electrodes] Respiratory 24 Rate Blood Pressure 117/75 Blood Pressure [Left Brachial artery] O2 Saturation Oxygen O2 Source Nasal cannula Oxygen Flow Rate 2 I&O (Last 24 Hrs): Intake and Output Totals x24h 10/18/20 10/19/20 10/20/20 23:59 23:59 23:59 Intake Total 3520.000 3392.666 1339.000 Output Total 650 350 325 Balance 2870.000 3042.666 1014.000 General: Alert, Oriented x3, Cooperative HEENT: Atraumatic Neck: Supple Lymphatic: no adenopathy Neuro: Alert, Non Focal, Oriented Times 3 Cardiovascular: Regular rate, Normal S1, Normal S2 Respiratory: Chest non-tender Abdomen: Normal bowel sounds, Soft Extremities: Normal pulses - Results Results: Laboratory Results WBC 24.7 x10^3/uL (4.8-10.8) H 10/20/20 05:17 RBC 3.66 10^6/uL (4.70-6.10) L 10/20/20 05:17 Hgb 10.0 g/dL (14.0-18.0) L 10/20/20 05:17 Hct 32.8 % (42.0-52.0) L 10/20/20 05:17 MCV 89.6 fL (80.0-94.0) 10/20/20 05:17 MCH 27.3 pg (27.0-31.0) 10/20/20 05:17 MCHC 30.5 g/dL (32.0-36.0) L 10/20/20 05:17 RDW 14.2 % (12.0-15.0) 10/20/20 05:17 Plt Count 352 10^3/uL (130-450) 10/20/20 05:17 MPV 9.9 fL (7.4-11.4) 10/20/20 05:17 Neut # (Auto) Not Reportable 10/20/20 05:17 Lymph # (Auto) Not Reportable 10/20/20 05:17 Lyman # (Auto) Not Reportable 10/20/20 05:17 Eos # (Auto) Not Reportable 10/20/20 05:17 Baso # (Auto) Not Reportable 10/20/20 05:17 Absolute Nucleated RBC Not Reportable 10/20/20 05:17 Total Counted 100 10/20/20 05:17 Band Neuts % (Manual) 0 % (0-10) 10/20/20 05:17 Abnorm Lymph % (Manual) 0 % 10/20/20 05:17 Nucleated RBC % Not Reportable 10/20/20 05:17 Neutrophils # (Manual) 19.3 10^3/uL (1.5-6.6) H 10/20/20 05:17 Lymphocytes # (Manual) 1.5 10^3/uL (1.5-3.5) 10/20/20 05:17 Monocytes # (Manual) 3.5 10^3/uL (0.0-1.0) H 10/20/20 05:17 Eosinophils # (Manual) 0.0 10^3/uL (0-0.7) 10/20/20 05:17 Basophils # (Manual) 0.5 10^3/uL (0-0.1) H 10/20/20 05:17 Differential Comment MANUAL DIFFERENTIAL 10/20/20 05:17 Manual Slide Review Indicated 10/19/20 05:08 WBC Morphology NORMAL APPEARANCE (NORMAL) 10/20/20 05:17 Platelet Estimate NORMAL (130-450,000) (NORMAL) 10/20/20 05:17 Platelet Morphology NORMAL APPEARANCE (NORMAL) 10/20/20 05:17 RBC Morph Micro Appear NORMAL APPEARANCE (NORMAL) 10/20/20 05:17 PT 22.6 secs (9.9-12.6) H 10/20/20 05:17 INR 2.1 (0.8-1.2) H 10/20/20 05:17 Sodium 137 mmol/L (135-145) 10/20/20 05:17 Potassium 3.5 mmol/L (3.5-5.0) 10/20/20 05:17 Chloride 101 mmol/L (101-111) 10/20/20 05:17 Carbon Dioxide 22 mmol/L (21-32) 10/20/20 05:17 Anion Gap 14.0 (6-13) H 10/20/20 05:17 BUN 17 mg/dL (6-20) 10/20/20 05:17 Creatinine 1.1 mg/dL (0.6-1.2) 10/20/20 05:17 Estimated GFR (MDRD) 67 (>89) L 10/20/20 05:17 Glucose 90 mg/dL (70-100) 10/20/20 05:17 Lactic Acid 1.6 mmol/L (0.5-2.2) 10/17/20 11:15 Calcium 8.3 mg/dL (8.5-10.3) L 10/20/20 05:17 Magnesium 1.9 mg/dL (1.7-2.8) 10/17/20 11:15 Total Bilirubin 1.5 mg/dL (0.2-1.0) H 10/17/20 11:15 AST 26 IU/L (10-42) 10/17/20 11:15 ALT 21 IU/L (10-60) 10/17/20 11:15 Alkaline Phosphatase 61 IU/L (42-121) 10/17/20 11:15 C-Reactive Protein 24.7 mg/dL (0-1.0) H 10/20/20 05:17 B-Natriuretic Peptide 81 pg/mL (5-100) 10/17/20 11:15 Total Protein 8.3 g/dL (6.7-8.2) H 10/17/20 11:15 Albumin 3.5 g/dL (3.2-5.5) 10/17/20 11:15 Globulin 4.8 g/dL (2.1-4.2) H 10/17/20 11:15 Albumin/Globulin Ratio 0.7 (1.0-2.2) L 10/17/20 11:15 Nasal Adenovirus (PCR) NOT DETECTED 10/17/20 11:20 Nasal B. parapertussis DNA (PCR) NOT DETECTED 10/17/20 11:20 Nasal Coronavir 229E PCR NOT DETECTED 10/17/20 11:20 Nasal Coronavir HKU1 PCR NOT DETECTED 10/17/20 11:20 Nasal Coronavir NL63 PCR NOT DETECTED 10/17/20 11:20 Nasal Coronavir OC43 PCR NOT DETECTED 10/17/20 11:20 Nasal Enterovir/Rhinovir PCR NOT DETECTED 10/17/20 11:20 Nasal Influenza B PCR NOT DETECTED 10/17/20 11:20 Nasal Influenza A PCR NOT DETECTED 10/17/20 11:20 Nasal Parainfluen 1 PCR NOT DETECTED 10/17/20 11:20 Nasal Parainfluen 2 PCR NOT DETECTED 10/17/20 11:20 Nasal Parainfluen 3 PCR NOT DETECTED 10/17/20 11:20 Nasal Parainfluen 4 PCR NOT DETECTED 10/17/20 11:20 Nasal RSV (PCR) NOT DETECTED 10/17/20 11:20 Nasal B.pertussis DNA PCR NOT DETECTED 10/17/20 11:20 Nasal C.pneumoniae (PCR) NOT DETECTED 10/17/20 11:20 Dequan Human Metapneumo PCR NOT DETECTED 10/17/20 11:20 Nasal M.pneumoniae (PCR) NOT DETECTED 10/17/20 11:20 Nasal SARS-CoV-2 (PCR) NOT DETECTED 10/17/20 11:20 Blood Type O NEGATIVE 10/19/20 08:27 Blood Type Recheck O NEGATIVE 10/19/20 05:08 Antibody Screen NEGATIVE 10/19/20 08:27 ABX Reporting Has patient been on IV antibiotics over the past 48 hours?: Yes Current Medications - Current Medications Current Medications: Active Medications Acetaminophen (Acetaminophen 325 Mg Tablet) 650 mg PO Q4HR PRN PRN Reason: Pain 1 to 4 Last Admin: 10/19/20 00:31 Dose: 650 mg Documented by: Albuterol/Ipratropium (Ipratropium/Albuterol 3 Ml Neb) 3 ml INH RTQID PRN PRN Reason: Wheezing Atorvastatin Calcium (Atorvastatin 40 Mg Tablet) 40 mg PO QPM [facility] Last Admin: 10/19/20 21:24 Dose: 40 mg Documented by: Furosemide (Furosemide 20 Mg/2 Ml Vial) 20 mg IVP ONCE [facility] Stop: 10/20/20 14:00 Furosemide (Furosemide 20 Mg Tablet) 20 mg PO DAILY JUAN ALBERTO Hydrocortisone (Hydrocortisone 10 Mg Tablet) 10 mg PO DAILYWM [facility] Last Admin: 10/20/20 08:04 Dose: 10 mg Documented by: Ceftriaxone Sodium 2 gm/ (Sodium Chloride) 100 mls @ 200 mls/hr IV DAILY JUAN ALBERTO Stop: 10/21/20 09:30 Ceftriaxone Sodium 1 gm/ (Sodium Chloride) 100 mls @ 200 mls/hr IV ONCE JUAN ALBERTO Stop: 10/20/20 12:00 Last Infusion: 10/20/20 09:40 Dose: Infused Documented by: Vancomycin HCl 2 gm/ Sodium (Chloride) 500 mls @ 250 mls/hr IV ONCE ONE Stop: 10/20/20 13:59 Metoprolol Succinate (Metoprolol Succinate 25 Mg Tablet) 25 mg PO DAILY [facility] Last Admin: 10/20/20 08:04 Dose: 25 mg Documented by: Morphine Sulfate (Morphine 2 Mg/Ml Carpuject) 2 mg IVP Q2HR PRN PRN Reason: PAIN Last Admin: 10/20/20 08:07 Dose: 2 mg Documented by: Ondansetron HCl (Ondansetron 4 Mg/2 Ml Vial) 4 mg IVP Q6HR PRN PRN Reason: Nausea / Vomiting Oxycodone HCl (Oxycodone 5 Mg Tablet) 5 mg PO Q4HR PRN PRN Reason: PAIN Pantoprazole Sodium (Pantoprazole 40 Mg Tablet) 40 mg PO QDAC [facility] Last Admin: 10/20/20 06:17 Dose: Not Given Documented by: Polyethylene Glycol (Polyethylene Glycol 3350 17 Gm Packet) 17 gm PO DAILY [facility] Last Admin: 10/20/20 08:06 Dose: Not Given Documented by: Sodium Chloride (Sodium Chloride Flush 0.9% 10 Ml Syringe) 10 ml IVP PRN PRN PRN Reason: NEEDED PER PROVIDER ORDERS Last Admin: 10/20/20 09:10 Dose: 10 ml Documented by: Sodium Chloride (Sodium Chloride Flush 0.9% 10 Ml Syringe) 10 ml IVP 0100,0900,1700 [facility] Last Admin: 10/20/20 08:06 Dose: Not Given Documented by: Throat Lozenges (Benzocaine/Menthol Lozenge) 1 lozenge MM Q2HR PRN PRN Reason: Throat pain Last Admin: 10/18/20 03:58 Dose: 1 lozenge Documented by: Vancomycin HCl (Vancomycin: Pharmacy To Dose) 1 each MC ONCE PRN PRN Reason: PER PHARMACY Atorvastatin Calcium 40 mg PO DAILY 09/11/17 Aspirin [Aspirin EC] 81 mg PO DAILY 09/12/17 Furosemide 20 mg PO DAILY PRN 09/12/17 Metoprolol Succinate 25 mg PO DAILY 09/12/17 Acetaminophen [Tylenol] 162.5 mg PO Q6H PRN 06/10/18 Hydrocortisone [Cortef] 10 mg PO DAILY 10/17/20
--- NOTE | 2020-10-20 11:36 | XRAY Report ---
PROCEDURE: Chest 1 View X-Ray INDICATIONS: SOB TECHNIQUE: One view of the chest was acquired. COMPARISON: Chest x-ray, 1view, 10/18/2020. FINDINGS: Surgical changes and devices: Sternotomy. Lungs and pleura: There is moderate right pleural effusion, slightly increased. Bilateral basilar op acities are likely atelectasis. No pneumothorax. Mediastinum: Mediastinal contours appear normal. Heart size is normal. Bones and chest wall: No suspicious bony lesions. Overlying soft tissues appear unremarkable. IMPRESSION: 1. Slightly increased moderate right pleural effusion. 2. Bibasilar atelectasis. Reviewed by: Trace Sierra MD on 10/20/2020 11:[address] [facility] Approved by: Trace Sierra MD on 10/20/2020 11:[address] [facility] Station ID: [id number]
[2020-10-20] MEDS ORDERED: FUROSEMIDE 20 MG/2 ML VIAL IVP SCH (12:00)
[2020-10-20] MEDS ORDERED: VANCOMYCIN INJ 2 GM in SODIUM CHLORIDE 0.9% 500 ML IV ONE (12:00)
[2020-10-20 13:12] LABS: PT - PROTHROMBIN TIME 21.3 secs (9.9-12.6)
--- NOTE | 2020-10-20 14:37 | PHARMACY PROGRESS NOTE ---
- Therapy Status Vancomycin regimen day #: 1 (2 g loading dose, 1.5g q12h (15mg/kg)) Therapy status: Awaiting steady state Basis for treatment: Empirical Treatment indication: Pneumonia/pleural effusion Trough goal: 15-20 Concurrent antibiotics: Ceftriaxone 10/17 -present Azithromycin 10/17-10/19 Metronidazole 10/17-10/20 - ALFONSO Risk Acute Kidney Injury risk factors: Other nephrotoxic agents (Furosemide), Goal trough >15 - Monitoring and Recommendation Clinical response to treatment: I&O Previous 24 hours 10/18/20 10/19/20 10/20/20 23:59 23:59 23:59 Intake Total 3520.000 3392.666 1589.000 Output Total 650 350 900 Balance 2870.000 3042.666 689.000 Lab Results 10/20/20 10/19/20 10/18/20 05:17 05:08 08:40 BUN 17 18 17 Creatinine 1.1 1.2 1.3 H Estimated GFR (MDRD) 67 L 60 L 55 L 10/17/20 11:15 BUN 16 Creatinine 1.4 H Estimated GFR (MDRD) 50 L Cultures 10/17/20 16:15 Blood - Left Hand Blood Culture - Preliminary NO GROWTH AFTER 2 DAYS 10/17/20 16:08 Blood - Left Arm Blood Culture - Preliminary NO GROWTH AFTER 2 DAYS S/O: Pt with right sided pleural effusion, slightly increased today from last x-ray. WBC 22.8 to 24.7, patient on steroids from home, hydrocortisone 10 mg daily. Pt is afebrile, HR 98-106 over last 24 hours, improved from days prior. O2 sat 92- 94 this AM. A/P: Vancomycin added today for slight increase in WBC and lack of improvement from patient. Worsening, undrained pleural effusion could account for lack of improvement. Pt to have thoracentesis, waiting for INR to drop below 1.5. MRSA nasal screen ordered, pending results, continue vancomycin. Discontinue if negative. Consider restarting metronidazole for treatment of possible anaerobes in pleural space. Haris Castaneda, PharmD Monitoring plan: Daily serum creatinine
[2020-10-20] MEDS ORDERED: PHYTONADIONE 10 MG/ML AMP IVP STA (15:24)
[2020-10-20] MEDS: ATORVASTATIN 40 MG TABLET PO SCH (21:34)
[2020-10-21] MEDS ORDERED: VANCOMYCIN INJ 1 GM, VANCOMYCIN INJ 500 MG in SODIUM CHLORIDE 0.9% 250 ML IV SCH ×3
[2020-10-21] MEDS: SODIUM CHLORIDE FLUSH 0.9% 10 ML SYRINGE IVP SCH ×2 (00:18→08:48)
[2020-10-21] MEDS: MORPHINE 2 MG/ML CARPUJECT IVP PRN ×5 (00:18→14:11)
[2020-10-21 05:37] LABS: BASOPHILS % (AUTO) 0.7 %; EOSINOPHILS % (AUTO) 0.5 %; HGB - HEMOGLOBIN 9.4 g/dL (14.0-18.0); LYMPHOCYTES % (AUTO) 7.5 %; MEAN CORPUSCULAR HEMOGLOBIN 27.6 pg (27.0-31.0); MEAN CORPUSCULAR HGB CONC 30.8 g/dL (32.0-36.0); MEAN CORPUSCULAR VOLUME 89.4 fL (80.0-94.0); MONOCYTES % (AUTO) 14.5 %; NEUTROPHILS % (AUTO) 75.7 %; PLT - PLATELET COUNT 326 10^3/uL (130-450); RED BLOOD COUNT 3.41 10^6/uL (4.70-6.10); RED CELL DISTRIBUTION WIDTH 14.6 % (12.0-15.0); WHITE BLOOD COUNT 22.9 x10^3/uL (4.8-10.8)
[2020-10-21 05:52] LABS: ABNORMAL LYMPHS % (MANUAL) 0 %
[2020-10-21 05:53] LABS: INR 1.9 (0.8-1.2); PT - PROTHROMBIN TIME 19.9 secs (9.9-12.6)
[2020-10-21 06:09] LABS: BAND NEUTROPHILS % (MANUAL) 5 %; DIFFERENTIAL COMMENT MANUAL DIFFERENTIAL; EOSINOPHILS # (MANUAL) 0.2 10^3/uL (0-0.7); LYMPHOCYTES # (MANUAL) 0.5 10^3/uL (1.5-3.5); LYMPHOCYTES % (MANUAL) 2 %; MONOCYTES # (MANUAL) 2.3 10^3/uL (0.0-1.0); PLATELET ESTIMATE, MANUAL NORMAL (130-450,000) (NORMAL); RBC MORPHOLOGY (MULTIPLE) NORMAL APPEARANCE (NORMAL)
[2020-10-21] MEDS: metroNIDAZOLE 500 MG/100 ML 500 MG/100 ML BAG IV SCH (06:21)
[2020-10-21 06:23] LABS: CALCIUM 8.1 mg/dL (8.5-10.3); CREATININE 1.1 mg/dL (0.6-1.2); CRP - C-REACTIVE PROTEIN 24.6 mg/dL (0-1.0)
[2020-10-21] MEDS: PANTOPRAZOLE 40 MG TABLET PO SCH (06:43)
[2020-10-21] MEDS: polyethylene glycoL 3350 17 GM PACKET PO SCH (08:47)
[2020-10-21] MEDS: METOPROLOL SUCCINATE 25 MG TABLET PO SCH (08:47)
[2020-10-21] MEDS: HYDROCORTISONE 10 MG TABLET PO SCH (08:47)
[2020-10-21] MEDS ORDERED: FUROSEMIDE 20 MG/2 ML VIAL IVP SCH (09:00)
[2020-10-21] MEDS ORDERED: FUROSEMIDE 20 MG TABLET PO SCH (09:00)
[2020-10-21] MEDS ORDERED: cefTRIAXone 2 GM in SODIUM CHLORIDE 0.9% MINIBAG 100 ML IV SCH (09:00)
[2020-10-21] MEDS ORDERED: LACTOBACILLUS RHAMNOSUS GG CAPSULE PO SCH (09:00)
[2020-10-21] MEDS ORDERED: D5.45NS W/20 MEQ KCL 1,000 ML IV SCH (10:00)
[2020-10-21] MEDS: SODIUM CHLORIDE FLUSH 0.9% 10 ML SYRINGE IVP PRN ×3 (10:38→14:11)
--- NOTE | 2020-10-21 11:05 | Ultrasound Report ---
PROCEDURE: Chest INDICATIONS: RT PLEURAL EFFUSION TECHNIQUE: Real-time scanning was performed, and a suitable site was marked by the freelance recruiter for thoracentesis to be performed by the referring clinician. COMPARISON: None. FINDINGS: An effusion is noted in the right thorax, comprised of both fluid and innumerable internal septations , small and large in size, with thin margins to the degree that these would not be accurately detecte d by CT scanning. IMPRESSION: The study was initially intended to be performed as a therapeutic thoracentesis. The fluid within the right hemithorax seen 10/14/[address] scanning is seen to actually represent a multiloculated right pleural effusion containing innumerable thin-walled loculations which will not be effectively treated by ultrasound-guided pleural tap. Rather, surgical consultation for thoracoscopic lysis of adhesions /loculations is recommended, and these findings and recommendation were discussed in detail with the consulting surgeon also caring for the patient. Reviewed by: Luís Pinno MD on 10/21/2020 11:03 AM PST Approved by: Luís Pinon MD on 10/21/2020 11:03 AM PST Station ID: [id number]
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
[2020-10-21 14:20] VITALS: BP 137/86
== END 2020-10-21 14:20 | disposition short-term general hospital (02) | DRG 871 ==
LOC: ED 10:24 → MS2 12:30
PROVIDERS: ADMIT Internal Medicine; ATTEND Internal Medicine
PROC: 30233K1 Transfusion of Nonautologous Frozen Plasma into Peripheral Vein, Percutaneous Approach (ICD-10-PCS; principal; 2020-10-19)
DX: A41.9 Sepsis, unspecified organism (principal); J18.9 Pneumonia, unspecified organism; J90 Pleural effusion, not elsewhere classified; N17.9 Acute kidney failure, unspecified; R79.1 Abnormal coagulation profile; R65.20 Severe sepsis without septic shock; R09.02 Hypoxemia; I25.10 Atherosclerotic heart disease of native coronary artery without angina pectoris; E78.5 Hyperlipidemia, unspecified; Z20.822 Contact with and (suspected) exposure to COVID-19; M06.9 Rheumatoid arthritis, unspecified; G89.29 Other chronic pain; M54.9 Dorsalgia, unspecified; F40.240 Claustrophobia; M81.0 Age-related osteoporosis without current pathological fracture; Z79.82 Long term (current) use of aspirin; Z79.52 Long term (current) use of systemic steroids; Z95.1 Presence of aortocoronary bypass graft; Z87.891 Personal history of nicotine dependence
CPT/HCPCS: 36415; 71045; 76604; 80048; 80053; 83605; 83735; 83880; 85025; 85610; 86140; 86850; 86900; 86901; 87040; 87631; 87640; 93306; 94640; 96365; 96375; 99284; 99285; A9270; J1650; J3370; J7040; P9017; 0202U

== ENCOUNTER 2020-10-21 14:24 | Outpatient (CLI) | payer MEDICARE | END 2020-10-21 14:25 | disposition short-term general hospital (02) | LOC: EMS 14:24 | DX: J90 Pleural effusion, not elsewhere classified (principal) | CPT/HCPCS: A0425; A0428 ==

== ENCOUNTER 2020-11-18 09:53 | Outpatient (CLI) | payer MEDICARE ==
--- NOTE | 2020-11-18 13:23 | CT Report ---
PROCEDURE: CHEST WO INDICATIONS: EMPYEMA TECHNIQUE: Noncontrast 5 mm thick sections acquired from the pulmonary apices to the posterior costophrenic angl es. 7 mm thick coronal and sagittal MIP reformats were then acquired. For radiation dose reduction, the following was used: automated exposure control, adjustment of mA and/or kV according to patient size. COMPARISON: CT chest 10/14/2020. Ultrasound chest, 10/21/2020. FINDINGS: Image quality: Excellent. Lungs and pleura: There is a small pleural fluid collection containing pockets of air in the right cristy ng base, compatible with empyema. Compared with the last exam, the size of the collection is decrease d. There is subpleural densities bilaterally compatible with scars and atelectasis, most pronounced i n the left upper lobe and both lower lobes. There is bronchiectasis in the left upper lobe. Mediastinum: Heart size is normal. Severe coronary artery calcification and CABG. No pericardial ef fusion. No mediastinal adenopathy by size criteria. Thoracic aorta and central pulmonary arteries a re normal in size. Esophagus is normal in caliber. No hiatal hernia. Bones and chest wall: No suspicious bony lesions. No vertebral body compression fractures. No axil pedro or supraclavicular adenopathy by size criteria. The thyroid is normal in size. Abdomen: Visualized upper abdominal solid organs and bowel loops appear normal in the absence of con trast. IMPRESSION: 1. A small empyema is present in the right lung base. Compared to the last CT on 10/14/2020, the colle ction has decreased in size. 2. Bilateral subpleural scars and atelectasis. 3. Bronchiectasis in the left upper lobe. Reviewed by: Trace Sierra MD on 11/18/2020 1:22 PM PDT Approved by: Trace Sierra MD on 11/18/2020 1:22 PM PDT Station ID: [id number]
== END 2020-11-18 09:54 | disposition home or self-care (01) ==
LOC: DI 09:53
PROVIDERS: ATTEND Internal Medicine
DX: J86.9 Pyothorax without fistula (principal); J47.9 Bronchiectasis, uncomplicated

== ENCOUNTER 2021-04-01 07:39 | Outpatient (CLI) | payer MEDICARE ==
[2021-04-01 08:28] LABS: BASOPHILS # (AUTO) 0.1 10^3/uL (0.0-0.1); BASOPHILS % (AUTO) 1.1 %; EOSINOPHILS # (AUTO) 0.3 10^3/uL (0.0-0.7); EOSINOPHILS % (AUTO) 3.5 %; HCT - HEMATOCRIT 44.6 % (42.0-52.0); HGB - HEMOGLOBIN 13.8 g/dL (14.0-18.0); LYMPHOCYTES # (AUTO) 2.1 10^3/uL (1.5-3.5); LYMPHOCYTES % (AUTO) 26.5 %; MEAN CORPUSCULAR HEMOGLOBIN 27.2 pg (27.0-31.0); MEAN CORPUSCULAR HGB CONC 30.9 g/dL (32.0-36.0); MEAN PLATELET VOLUME 10.5 fL (7.4-11.4); MONOCYTES % (AUTO) 12.5 %; NEUTROPHILS # (AUTO) 4.5 10^3/uL (1.5-6.6); NEUTROPHILS % (AUTO) 56.1 %; PLT - PLATELET COUNT 201 10^3/uL (130-450); RED BLOOD COUNT 5.07 10^6/uL (4.70-6.10); RED CELL DISTRIBUTION WIDTH 14.4 % (12.0-15.0)
[2021-04-01 08:41] LABS: CREATININE,URINE 133.6 mg/dL; MICROALBUM/CREATININE RATIO,UR 2.2 ug/mg (<30.0); MICROALBUMIN,URINE 0.3 mg/dL (0-300.0)
[2021-04-01 08:47] LABS: % IRON SATURATION 14 % (20-50); ALBUMIN 4.8 g/dL (3.2-5.5); ALBUMIN/GLOBULIN RATIO 1.2 (1.0-2.2); ALKALINE PHOSPHATASE 69 IU/L (42-121); ALT ALANINE AMINOTRANSFERASE 28 IU/L (10-60); AST ASPARTATE AMINOTRANSFERASE 35 IU/L (10-42); BILIRUBIN,TOTAL 0.8 mg/dL (0.2-1.0); BUN - BLOOD UREA NITROGEN 20 mg/dL (6-20); CALCIUM 9.4 mg/dL (8.5-10.3); CARBON DIOXIDE - CO2 26 mmol/L (21-32); CHLORIDE 102 mmol/L (101-111); CHOL/HDL RATIO 3.1 (<5.0); CHOLESTEROL 120 mg/dL; CREATININE 1.2 mg/dL (0.6-1.2); GFR - MDRD 60 (>89); GLUCOSE 84 mg/dL (70-100); HDL CHOLESTEROL 39 mg/dL; IRON 50 ug/dL (45-182); LDL CHOLESTEROL,CALCULATED 64 mg/dL; LDL/HDL RATIO 1.6 (<3.6); POTASSIUM 3.8 mmol/L (3.5-5.0); SODIUM 139 mmol/L (135-145); TOTAL IRON BINDING CAPACITY 367 ug/dL (250-450); TOTAL PROTEIN 8.7 g/dL (6.7-8.2); TRANSFERRIN 262 mg/dL (180-329); TRIGLYCERIDES 87 mg/dL; VLDL CHOLESTEROL 17 mg/dL
[2021-04-01 09:00] LABS: THYROID STIMULATING HORMONE 3.1 uIU/mL (0.34-5.60)
[2021-04-01 09:06] LABS: FERRITIN 52.6 ng/mL (23.9-336.2)
[2021-04-01 10:17] LABS: ESTIMATED AVERAGE GLUCOSE 111 mg/dL (70-100); HEMOGLOBIN A1c% 5.5 % (4.27-6.07)
== END 2021-04-01 07:40 | disposition home or self-care (01) ==
LOC: LAB 07:39
PROVIDERS: ATTEND Internal Medicine
DX: I25.5 Ischemic cardiomyopathy (principal); E27.40 Unspecified adrenocortical insufficiency; D50.9 Iron deficiency anemia, unspecified; G62.9 Polyneuropathy, unspecified
CPT/HCPCS: 36415; 80053; 80061; 81599; 82043; 82570; 82607; 82728; 83036; 83540; 83721; 84153; 84155; 84165; 84207; 84443; 84466; 85025; 86334

== ENCOUNTER 2021-05-25 09:54 | Outpatient (CLI) | payer MEDICARE ==
[2021-05-25 10:20] LABS: BASOPHILS # (AUTO) 0.1 10^3/uL (0.0-0.1); BASOPHILS % (AUTO) 1.2 %; EOSINOPHILS # (AUTO) 0.2 10^3/uL (0.0-0.7); EOSINOPHILS % (AUTO) 2.7 %; HCT - HEMATOCRIT 43.6 % (42.0-52.0); HGB - HEMOGLOBIN 13.6 g/dL (14.0-18.0); LYMPHOCYTES # (AUTO) 2.2 10^3/uL (1.5-3.5); MEAN CORPUSCULAR HEMOGLOBIN 27.5 pg (27.0-31.0); MEAN CORPUSCULAR HGB CONC 31.2 g/dL (32.0-36.0); MEAN CORPUSCULAR VOLUME 88.1 fL (80.0-94.0); MEAN PLATELET VOLUME 10.4 fL (7.4-11.4); MONOCYTES # (AUTO) 1.1 10^3/uL (0.0-1.0); MONOCYTES % (AUTO) 12.5 %; NEUTROPHILS # (AUTO) 4.8 10^3/uL (1.5-6.6); NEUTROPHILS % (AUTO) 57.4 %; PLT - PLATELET COUNT 182 10^3/uL (130-450); RED BLOOD COUNT 4.95 10^6/uL (4.70-6.10); RED CELL DISTRIBUTION WIDTH 14.8 % (12.0-15.0); WHITE BLOOD COUNT 8.4 x10^3/uL (4.8-10.8)
[2021-05-25 10:39] LABS: CHOL/HDL RATIO 3.1 (<5.0); CHOLESTEROL 141 mg/dL; HDL CHOLESTEROL 45 mg/dL; LDL CHOLESTEROL,CALCULATED 78 mg/dL; LDL/HDL RATIO 1.7 (<3.6); TRIGLYCERIDES 91 mg/dL; VLDL CHOLESTEROL 18 mg/dL
[2021-05-25 10:52] LABS: THYROID STIMULATING HORMONE 2.51 uIU/mL (0.34-5.60)
[2021-05-25 10:54] LABS: FREE T4 (FREE THYROXINE) 0.44 ng/dL (0.58-1.64)
[2021-05-25 11:15] LABS: PSA TOTAL 0.11 ng/mL (0.000-2.000)
== END 2021-05-25 09:55 | disposition home or self-care (01) ==
LOC: LAB 09:54
PROVIDERS: ATTEND Internal Medicine Endocrinology, Diabetes & Metabolism
DX: E29.1 Testicular hypofunction (principal); E23.6 Other disorders of pituitary gland
CPT/HCPCS: 36415; 80061; 81599; 83721; 84153; 84305; 84402; 84403; 84439; 84443; 85025

== ENCOUNTER 2021-06-10 13:16 | Outpatient (CLI) | payer MEDICARE | END 2021-06-10 13:17 | disposition home or self-care (01) | LOC: RT 13:16 | PROVIDERS: ATTEND Internal Medicine | DX: R05.3 Chronic cough (principal); Z87.891 Personal history of nicotine dependence | CPT/HCPCS: 94060; 94727; 94729 ==

== ENCOUNTER 2021-09-24 11:25 | Day surgery (SDC) | payer MEDICARE ==
[2021-09-24] MEDS ORDERED: LACTATED RINGERS 1,000 ML IV ONE ×2 (11:52→13:34)
--- NOTE | 2021-09-24 12:20 | ANESTHESIA ---
Pre-Anesthesia VS, & Labs - Diagnosis Gerd/anemia, screening - Procedure EGD, Colonoscopy Vital Signs: Temp Pulse Resp BP Pulse Ox 36.1 C L 80 19 156/90 H 97 09/24/21 11:45 09/24/21 11:45 09/24/21 11:45 09/24/21 11:45 09/24/21 11:45 Height: 5 ft 11 in Weight (kg): 101 kg Body Mass Index: 31.0 BMI Classification: Obese - NPO >8 hours Home Medications and Allergies Home Medications: Ambulatory Orders Atorvastatin Calcium 40 mg PO DAILY 09/22/21 Pantoprazole [Protonix] 40 mg PO DAILY 09/22/21 Umeclidinium [place] [Incruse Ellipta] 1 puffs PO DAILY PRN 09/22/21 Atorvastatin Calcium 40 mg PO DAILY 09/11/17 Aspirin [Aspirin EC] 81 mg PO DAILY 09/12/17 Furosemide 20 mg PO DAILY PRN 09/12/17 Metoprolol Succinate 25 mg PO DAILY 09/12/17 Acetaminophen [Tylenol] 162.5 mg PO Q6H PRN 06/10/18 Hydrocortisone [Cortef] 10 mg PO DAILY 10/17/20 Atorvastatin Calcium 40 mg PO DAILY 09/22/21 Pantoprazole [Protonix] 40 mg PO DAILY 09/22/21 Umeclidinium [place] [Incruse Ellipta] 1 puffs PO DAILY PRN 09/22/21 Allergies/Adverse Reactions: Allergies Allergy/AdvReac Type Severity Reaction Status Date / Time cefazolin Allergy Rash Verified 10/17/20 10:32 diphenhydramine Allergy Unknown Verified 10/22/20 07:11 [From Benadryl] lorazepam Allergy Hallucinati Verified 10/17/20 10:32 ons nafcillin Allergy Rash Verified 10/17/20 10:32 amoxicillin AdvReac diarrhea Verified 10/20/20 14:08 fenofibrate AdvReac Unknown Verified 09/24/21 12:02 sulfamethoxazole AdvReac Itching Verified 10/17/20 10:32 [From Bactrim] trimethoprim [From Bactrim] AdvReac Itching Verified 10/17/20 10:32 Anes History & Medical History - Anesthetic History Anesthesia Complications: reports: No previous complications - Medical History Cardiovascular: reports: Hypertension, High cholesterol, Coronary artery disease Pulmonary: reports: Asthma, Emphysema, Pneumonia, Sleep apnea Gastrointestinal: reports: GERD Urinary: reports: Kidney stones Neuro: reports: Fainting Musculoskeletal: reports: Osteoarthritis, Rheumatoid arthritis, Osteoporosis, Gout, Fatigue, Chronic back pain Endocrine/Autoimmune: reports: None Blood Disorders: reports: Anemia Skin: reports: None Smoking Status: Never smoker History of Cancer?: No - Surgical History General: reports: Cholecystectomy, Colonoscopy Eyes Ears Nose Throat (EENT): reports: Tonsil/Adenoidectomy Cardiothoracic: reports: CABG, Coronary stent, Cardiac catheterization, Other Orthopedic: reports: Carpal Tunnel surgery Exam General: Alert, Oriented x3 Dental: WNL Mouth Opening: Greater than 4 Fingerbreadths Neck Mobility: Normal Mallampati classification: II Thyromental Distance: greater than 6 cm Respiratory: Lungs clear Cardiovascular: Regular rate, Normal S1, Normal S2 Plan Anesthesia Type: Total IV Consent for Procedure(s) Verified and Reviewed: Yes Code Status: Attempt Resuscitation ASA classification: 3-Severe systemic disease Is this case an emergency?: No
[2021-09-24] MEDS ORDERED: PROPOFOL 500 MG/50 ML 500 MG/50 ML VIAL ONE (12:40)
[2021-09-24] MEDS ORDERED: LIDOCAINE-MPF 2% 5 ML VIAL ONE (12:40)
--- NOTE | 2021-09-24 12:46 | HISTORY & PHYSICAL EXAMINATION ---
Chief Complaint - Chief Complaint Chief Complaint: Possible GERD and due for colon cancer screening History of Present Illness - History Obtained From History obtained from: pt Exam Limitations: none - History of Present Illness HPI Comment/Other: due for colon cancer screening and concern for silent reflux with throat clearing. History - Past Medical History Cardiovascular: reports: Hypertension, High cholesterol, Coronary artery disease Respiratory: reports: Asthma, Emphysema, Pneumonia, Sleep apnea Neuro: reports: Fainting Endocrine/Autoimmune: reports: None GI: reports: GERD : reports: Kidney stones HEENT: reports: None Psych: reports: Anxiety, Claustrophobia Musculoskeletal: reports: Osteoarthritis, Rheumatoid arthritis, Osteoporosis, Gout, Fatigue, Chronic back pain Derm: reports: None MRSA Hx?: No - Past Surgical History General: reports: Cholecystectomy, Colonoscopy Ortho: reports: Carpal Tunnel surgery Cardiovascular: reports: CABG, Coronary stent, Cardiac catheterization, Other HEENT: reports: Tonsil/Adenoidectomy - Family & Social History Family History: Mother: , Cancer, Father: Alive and Well, CAD, CVA/TIA Family History Comment/Other: pt state his mother from skin cancer, his father is 91-yrs old with right side stroke and CAD, but he still drive his car to take care of himself. he had two young daughter with him and living [facility]. Social History Notes: He lives with his and daughters. He quit smoking in 1985. He does not consume alcohol or use recreational substances. He is fairly independent of activities of daily living. - POLST Patient has POLST: No POLST Status: Full Code Meds/Allgy - Home Medications Home Medications: Ambulatory Orders Medication Instructions Recorded Confirmed Atorvastatin Calcium 40 mg PO DAILY 09/11/17 09/22/21 Aspirin [Aspirin EC] 81 mg PO DAILY 09/12/17 09/24/21 Furosemide 20 mg PO DAILY PRN 09/12/17 09/24/21 Metoprolol Succinate 25 mg PO DAILY 09/12/17 09/24/21 Acetaminophen [Tylenol] 162.5 mg PO Q6H PRN 06/10/18 09/22/21 Hydrocortisone [Cortef] 10 mg PO DAILY 10/17/20 09/24/21 Atorvastatin Calcium 40 mg PO DAILY 09/22/21 09/22/21 Pantoprazole [Protonix] 40 mg PO DAILY 09/22/21 09/22/21 Umeclidinium [place] [Incruse 1 puffs PO DAILY PRN 09/22/21 09/22/21 Ellipta] - Allergies Allergies/Adverse Reactions: Allergies Allergy/AdvReac Type Severity Reaction Status Date / Time cefazolin Allergy Rash Verified 10/17/20 10:32 diphenhydramine Allergy Unknown Verified 10/22/20 07:11 [From Benadryl] lorazepam Allergy Hallucinati Verified 10/17/20 10:32 ons nafcillin Allergy Rash Verified 10/17/20 10:32 amoxicillin AdvReac diarrhea Verified 10/20/20 14:08 fenofibrate AdvReac Unknown Verified 09/24/21 12:02 sulfamethoxazole AdvReac Itching Verified 10/17/20 10:32 [From Bactrim] trimethoprim [From Bactrim] AdvReac Itching Verified 10/17/20 10:32 Review of Systems - Other Findings Other Findings: 10 pt ros as above otherwise unremarkable Exam - Vital Signs Reviewed Vital Signs: Yes Vital Signs: Vital Signs x48h Temp Pulse Resp BP Pulse Ox 09/24/21 11:45 36.1 C L 80 19 156/90 H 97 - Physical Exam General Appearance: positive: Alert Eyes Bilateral: positive: PERRL, EOMI ENT: positive: No signs of dehydration Neck: positive: No JVD Respiratory: positive: No respiratory distress, Breath sounds nml Cardiovascular: positive: Regular rate & rhythm Abdomen: positive: Non-tender, No distention Conclusion/Plan - Problem List (1) Colon cancer screening Conclusion/Plan: plan colonoscopy and EGD for concern silent gerd
[2021-09-24] MEDS ORDERED: GLYCOPYRROLATE 1 MG/5 ML VIAL ONE (13:30)
[2021-09-24] MEDS ORDERED: ePHEDrine 50 MG/ML VIAL IVP ONE (13:30)
[2021-09-24 14:06] VITALS: BP 123/71
--- NOTE | 2021-09-24 14:10 | ANESTHESIA POST OP EVALUATION ---
Anesthesia Post Eval - Post Anesthesia Eval Vitals: Last Vital Signs Temp 36.4 C L 09/24/21 13:30 Pulse 72 09/24/21 14:05 Resp 14 09/24/21 14:05 BP 123/71 09/24/21 14:05 Pulse Ox 99 09/24/21 14:05 CV Function Including HR & BP: Stable Pain Control: Satisfactory Nausea & Vomiting: Negative Mental Status: Baseline Respiratory Status: Airway Patent Hydration Status: Satisfactory Anesthesia Complications: None
== END 2021-09-24 11:26 | disposition home or self-care (01) ==
LOC: SDS 11:25
PROVIDERS: ATTEND Surgery
PROC: 0DB78ZX Excision of Stomach, Pylorus, Via Natural or Artificial Opening Endoscopic, Diagnostic (ICD-10-PCS; 2021-09-24)
PROC: 0DB38ZX Excision of Lower Esophagus, Via Natural or Artificial Opening Endoscopic, Diagnostic (ICD-10-PCS; 2021-09-24)
PROC: 0DJD8ZZ Inspection of Lower Intestinal Tract, Via Natural or Artificial Opening Endoscopic (ICD-10-PCS; principal; 2021-09-24 13:00)
PROC: 0DB98ZX Excision of Duodenum, Via Natural or Artificial Opening Endoscopic, Diagnostic (ICD-10-PCS; 2021-09-24 13:00)
DX: Z12.11 Encounter for screening for malignant neoplasm of colon (principal); K29.50 Unspecified chronic gastritis without bleeding; K21.9 Gastro-esophageal reflux disease without esophagitis; J43.9 Emphysema, unspecified; I25.5 Ischemic cardiomyopathy; I25.41 Coronary artery aneurysm; I25.10 Atherosclerotic heart disease of native coronary artery without angina pectoris; G47.33 Obstructive sleep apnea (adult) (pediatric); Z87.01 Personal history of pneumonia (recurrent); R68.89 Other general symptoms and signs; Z87.891 Personal history of nicotine dependence
CPT/HCPCS: 43239; G0121; J7120

== ENCOUNTER 2021-10-22 08:00 | Outpatient (CLI) | payer MEDICARE ==
[2021-10-22 18:47] LABS: BILIRUBIN,URINE NEGATIVE (NEGATIVE); GLUCOSE, URINE (UA) NEGATIVE (NEGATIVE); KETONES,URINE (UA) NEGATIVE (NEGATIVE); LEUKOCYTE ESTERASE, URINE NEGATIVE (NEGATIVE); NITRITE,URINE NEGATIVE (NEGATIVE); OCCULT BLOOD,URINE TRACE-INTA (NEGATIVE); PROTEIN,URINE NEGATIVE (NEGATIVE); UROBILINOGEN,URINE 0.2 (NORMAL) E.U./dL (NORMAL)
[2021-10-22 18:58] LABS: BACTERIA,URINE None Seen /HPF (None Seen); CLARITY,URINE CLEAR (CLEAR); RBC,URINE None Seen /HPF (0-5); SQUAMOUS EPITHELIAL CELL,UR RARE Squamous (<= Few); WBC,URINE 0-3 /HPF (0-3)
== END 2021-10-22 23:59 ==
LOC: LAB 08:00
PROVIDERS: ATTEND Internal Medicine
DX: R36.1 Hematospermia (principal)
CPT/HCPCS: 81001; 87086

== ENCOUNTER 2021-10-28 18:50 | Outpatient (CLI) | payer MEDICARE ==
--- NOTE | 2021-10-28 20:06 | Ultrasound Report ---
PROCEDURE: Testicle INDICATIONS: HEMATOSPERMIA, BILATERAL HYDROCELES TECHNIQUE: Real-time scanning was performed of the scrotum and testicles, with image documentation. Color and p ulse Doppler interrogation was performed of both testicles. COMPARISON: 08/05/2016. FINDINGS: Right: Testicle is normal in size at 4.6 x 3.0 x 3.0 cm, and homogenous in echotexture. Epididymis is normal in overall size and morphology. Moderate hydrocele. No varicocele. Overlying scrotal skin i s mildly prominent in thickness. Left: Testicle is normal in size at 3.8 x 2.9 x 3.0 cm, and homogeneous in echotexture. Epididymis is normal in overall size and morphology. Moderate hydrocele. No varicocele. Overlying scrotal skin i s mildly prominent in thickness. Doppler: Color and pulse Doppler demonstrate normal and symmetric arterial flow in both testicles. IMPRESSION: 1. Normal-appearing testicles with symmetrical flow and no masses. 2. Moderate bilateral hydroceles. 3. Otherwise unremarkable study. Reviewed by: Romulo Clark MD on 10/28/2021 8:04 PM PST Approved by: Romulo Clark MD on 10/28/2021 8:04 PM PST Station ID: [id number]
== END 2021-10-28 18:51 | disposition home or self-care (01) ==
LOC: DI 18:50
PROVIDERS: ATTEND Internal Medicine
DX: R36.1 Hematospermia (principal); N43.3 Hydrocele, unspecified

== ENCOUNTER 2021-12-15 09:06 | Outpatient (CLI) | payer MEDICARE ==
[2021-12-15 09:30] LABS: BASOPHILS # (AUTO) 0.1 10^3/uL (0.0-0.1); BASOPHILS % (AUTO) 1.1 %; EOSINOPHILS # (AUTO) 0.3 10^3/uL (0.0-0.7); EOSINOPHILS % (AUTO) 3.2 %; HCT - HEMATOCRIT 40.9 % (42.0-52.0); HGB - HEMOGLOBIN 13.2 g/dL (14.0-18.0); LYMPHOCYTES # (AUTO) 2.4 10^3/uL (1.5-3.5); LYMPHOCYTES % (AUTO) 27.9 %; MEAN CORPUSCULAR HEMOGLOBIN 27.8 pg (27.0-31.0); MEAN CORPUSCULAR HGB CONC 32.3 g/dL (32.0-36.0); MEAN CORPUSCULAR VOLUME 86.3 fL (80.0-94.0); MEAN PLATELET VOLUME 10.7 fL (7.4-11.4); MONOCYTES # (AUTO) 1.1 10^3/uL (0.0-1.0); NEUTROPHILS # (AUTO) 4.8 10^3/uL (1.5-6.6); NEUTROPHILS % (AUTO) 55.6 %; PLT - PLATELET COUNT 199 10^3/uL (130-450); RED BLOOD COUNT 4.74 10^6/uL (4.70-6.10); RED CELL DISTRIBUTION WIDTH 13.9 % (12.0-15.0); WHITE BLOOD COUNT 8.7 x10^3/uL (4.8-10.8)
[2021-12-15 09:35] LABS: BUN - BLOOD UREA NITROGEN 17 mg/dL (6-20); CALCIUM 9.1 mg/dL (8.5-10.3); CARBON DIOXIDE - CO2 25 mmol/L (21-32); CHLORIDE 103 mmol/L (101-111); CHOL/HDL RATIO 3.3 (<5.0); CHOLESTEROL 127 mg/dL; CREATININE 1.3 mg/dL (0.6-1.2); GFR - MDRD 55 (>89); GLUCOSE 89 mg/dL (70-100); HDL CHOLESTEROL 39 mg/dL; LDL CHOLESTEROL,CALCULATED 64 mg/dL; LDL/HDL RATIO 1.6 (<3.6); POTASSIUM 3.8 mmol/L (3.5-5.0); SODIUM 138 mmol/L (135-145); TRIGLYCERIDES 121 mg/dL; VLDL CHOLESTEROL 24 mg/dL
== END 2021-12-15 09:07 | disposition home or self-care (01) ==
LOC: LAB 09:06
PROVIDERS: ATTEND Internal Medicine Cardiovascular Disease
DX: I25.10 Atherosclerotic heart disease of native coronary artery without angina pectoris (principal); E78.2 Mixed hyperlipidemia
CPT/HCPCS: 36415; 80048; 80061; 83721; 85025

== ENCOUNTER 2022-06-07 08:59 | Outpatient (CLI) | payer MEDICARE ==
[~2022-06-07 08:59] MED LIST: GADOBUTROL 15 MMOL/15 ML VIAL ONE
[2022-06-07 09:29] LABS: CREATININE 1.2 mg/dL (0.6-1.2)
[2022-06-07] MEDS ORDERED: GADOBUTROL 15 MMOL/15 ML VIAL IVP ONE (11:30)
--- NOTE | 2022-06-07 18:29 | MRI Report ---
PROCEDURE: Brain W/WO INDICATIONS: PITUITARY CYST CONTRAST: IV gadolinium contrast given. TECHNIQUE: Noncontrast sagittal and axial FLAIR, axial gradient echo, axial diffusion and ADC through the brain. Thin-slice sagittal and coronal T1 spin echo, coronal T2 fast spin echo through the pituitary. Aft er the administration contrast, optional dynamic coronal T1 spin echo, thin-slice coronal and sagitta l T1 spin echo images through the pituitary fossa; axial T1 spin echo with fat saturation through the brain. COMPARISON: 08/05/2014 FINDINGS: Image quality: Excellent. Pituitary Gland: There is a prominent nonenhancing pituitary cyst seen, which measures 1.9 cm cranio caudal by 1.7 cm transversely, with an AP extent of 1.8 cm. Compared to 2013, this cystic lesion is s lightly increased in size. There is mild mass effect seen upon the optic chiasm. The ventral forebrai n is within normal limits. CSF Spaces: Ventricles are normal in size and shape. Basal cisterns are patent. No extra-axial flu id collections. Brain: No intracranial bleeds or mass effects. No abnormal intracranial enhancement. Hanley-white ma tter interface is intact. Diffusion weighted images demonstrate no acute ischemic insults. Brainste m is normal. Normal intravascular flow voids are present. Skull and face: Calvarial marrow is normal in signal. Orbits appear normal. Sinuses: Sinuses and mastoids are clear. 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 Mild mass effect can be seen upon the optic chiasm. Please correlate with potential visual symptoms. Reviewed by: Misha Fleming MD on 06/07/2022 5:28 PM AKADIN Approved by: Misha Fleming MD on 06/07/2022 5:28 PM AKDT Station ID: [id number]
== END 2022-06-07 09:00 | disposition home or self-care (01) ==
LOC: LAB 08:59
PROVIDERS: ATTEND Internal Medicine
DX: E23.6 Other disorders of pituitary gland (principal)
CPT/HCPCS: 36415; 70553; 82565; A9585

== ENCOUNTER 2022-08-19 07:26 | Outpatient (CLI) | payer MEDICARE ==
[2022-08-19 08:15] LABS: ALBUMIN 4.3 g/dL (3.2-5.5); ALBUMIN/GLOBULIN RATIO 1.2 (1.0-2.2); BILIRUBIN,TOTAL 0.8 mg/dL (0.2-1.0); CALCIUM 9.2 mg/dL (8.5-10.3); CREATININE 1.3 mg/dL (0.6-1.2); POTASSIUM 4.1 mmol/L (3.5-5.0)
[2022-08-19 08:17] LABS: BASOPHILS # (AUTO) 0.1 10^3/uL (0.0-0.1); BASOPHILS % (AUTO) 1.2 %; EOSINOPHILS # (AUTO) 0.4 10^3/uL (0.0-0.7); EOSINOPHILS % (AUTO) 4.2 %; HCT - HEMATOCRIT 42.6 % (42.0-52.0); HGB - HEMOGLOBIN 13.4 g/dL (14.0-18.0); LYMPHOCYTES # (AUTO) 2.5 10^3/uL (1.5-3.5); LYMPHOCYTES % (AUTO) 27.6 %; MEAN CORPUSCULAR HEMOGLOBIN 26.6 pg (27.0-31.0); MEAN CORPUSCULAR HGB CONC 31.5 g/dL (32.0-36.0); MEAN CORPUSCULAR VOLUME 84.7 fL (80.0-94.0); MEAN PLATELET VOLUME 10.5 fL (7.4-11.4); MONOCYTES # (AUTO) 1.4 10^3/uL (0.0-1.0); MONOCYTES % (AUTO) 15.3 %; NEUTROPHILS # (AUTO) 4.7 10^3/uL (1.5-6.6); NEUTROPHILS % (AUTO) 51.5 %; PLT - PLATELET COUNT 208 10^3/uL (130-450); RED BLOOD COUNT 5.03 10^6/uL (4.70-6.10); RED CELL DISTRIBUTION WIDTH 13.5 % (12.0-15.0); WHITE BLOOD COUNT 9.1 x10^3/uL (4.8-10.8)
[2022-08-19 08:25] LABS: THYROID STIMULATING HORMONE 0.43 uIU/mL (0.34-5.60)
[2022-08-19 08:28] LABS: FREE T4 (FREE THYROXINE) 0.47 ng/dL (0.58-1.64)
[2022-08-19 08:31] LABS: PROLACTIN 20.07 ng/mL
== END 2022-08-19 07:27 | disposition home or self-care (01) ==
LOC: LAB 07:26
PROVIDERS: ATTEND Internal Medicine
DX: E03.8 Other specified hypothyroidism (principal); I25.5 Ischemic cardiomyopathy; E23.6 Other disorders of pituitary gland; E29.1 Testicular hypofunction
CPT/HCPCS: 36415; 80053; 84146; 84403; 84439; 84443; 85025

== ENCOUNTER 2022-11-03 09:20 | Outpatient (CLI) | payer MEDICARE | END 2022-11-03 09:21 | disposition home or self-care (01) | LOC: LAB 09:20 | PROVIDERS: ATTEND Physician Assistant | DX: E27.40 Unspecified adrenocortical insufficiency (principal) | CPT/HCPCS: 36415; 84295 ==

== ENCOUNTER 2022-12-01 09:05 | Outpatient (CLI) | payer MEDICARE ==
[2022-12-01 09:28] LABS: BASOPHILS # (AUTO) 0.1 10^3/uL (0.0-0.1); BASOPHILS % (AUTO) 1.3 %; EOSINOPHILS # (AUTO) 0.6 10^3/uL (0.0-0.7); EOSINOPHILS % (AUTO) 8.4 %; HCT - HEMATOCRIT 41.7 % (42.0-52.0); HGB - HEMOGLOBIN 12.9 g/dL (14.0-18.0); LYMPHOCYTES # (AUTO) 1.9 10^3/uL (1.5-3.5); LYMPHOCYTES % (AUTO) 25.1 %; MEAN CORPUSCULAR HEMOGLOBIN 26.2 pg (27.0-31.0); MEAN CORPUSCULAR HGB CONC 30.9 g/dL (32.0-36.0); MEAN CORPUSCULAR VOLUME 84.6 fL (80.0-94.0); MEAN PLATELET VOLUME 10.8 fL (7.4-11.4); MONOCYTES # (AUTO) 1.2 10^3/uL (0.0-1.0); NEUTROPHILS # (AUTO) 3.8 10^3/uL (1.5-6.6); NEUTROPHILS % (AUTO) 49.9 %; PLT - PLATELET COUNT 215 10^3/uL (130-450); RED BLOOD COUNT 4.93 10^6/uL (4.70-6.10); RED CELL DISTRIBUTION WIDTH 13.7 % (12.0-15.0); WHITE BLOOD COUNT 7.7 x10^3/uL (4.8-10.8)
[2022-12-01 10:00] LABS: BUN - BLOOD UREA NITROGEN 16 mg/dL (6-20); CALCIUM 9.2 mg/dL (8.5-10.3); CARBON DIOXIDE - CO2 26 mmol/L (21-32); CHLORIDE 108 mmol/L (101-111); CHOL/HDL RATIO 3.4 (<5.0); CHOLESTEROL 138 mg/dL; CREATININE 1.2 mg/dL (0.6-1.2); GFR - MDRD 60 (>89); GLUCOSE 102 mg/dL (70-100); HDL CHOLESTEROL 41 mg/dL; LDL CHOLESTEROL,CALCULATED 74 mg/dL; LDL/HDL RATIO 1.8 (<3.6); SODIUM 142 mmol/L (135-145); TRIGLYCERIDES 115 mg/dL; URIC ACID 7.2 mg/dL (2.6-7.2); VLDL CHOLESTEROL 23 mg/dL
[2022-12-01 10:13] LABS: THYROID STIMULATING HORMONE 0.55 uIU/mL (0.34-5.60)
[2022-12-01 10:15] LABS: FREE T4 (FREE THYROXINE) 0.65 ng/dL (0.58-1.64)
[2022-12-01 10:19] LABS: PROLACTIN 14.19 ng/mL
== END 2022-12-01 09:06 | disposition home or self-care (01) ==
LOC: LAB 09:05
PROVIDERS: ATTEND Internal Medicine
DX: E03.8 Other specified hypothyroidism (principal); E27.40 Unspecified adrenocortical insufficiency; I25.5 Ischemic cardiomyopathy; E23.6 Other disorders of pituitary gland; Z12.5 Encounter for screening for malignant neoplasm of prostate; M10.9 Gout, unspecified
CPT/HCPCS: 36415; 80048; 80061; 84146; 84439; 84443; 84550; 85025; G0103; 83721; 84153

== ENCOUNTER 2023-04-04 07:04 | Outpatient (CLI) | payer MEDICARE ==
[2023-04-04 07:27] LABS: BASOPHILS # (AUTO) 0.1 10^3/uL (0.0-0.1); BASOPHILS % (AUTO) 1.5 %; EOSINOPHILS # (AUTO) 0.4 10^3/uL (0.0-0.7); EOSINOPHILS % (AUTO) 4.6 %; HGB - HEMOGLOBIN 12.1 g/dL (14.0-18.0); LYMPHOCYTES # (AUTO) 2.1 10^3/uL (1.5-3.5); LYMPHOCYTES % (AUTO) 22.6 %; MEAN CORPUSCULAR HEMOGLOBIN 25.1 pg (27.0-31.0); MEAN CORPUSCULAR HGB CONC 30.3 g/dL (32.0-36.0); MEAN PLATELET VOLUME 11.1 fL (7.4-11.4); MONOCYTES # (AUTO) 1.3 10^3/uL (0.0-1.0); MONOCYTES % (AUTO) 14.6 %; NEUTROPHILS # (AUTO) 5.2 10^3/uL (1.5-6.6); NEUTROPHILS % (AUTO) 56.6 %; PLT - PLATELET COUNT 204 10^3/uL (130-450); RED BLOOD COUNT 4.82 10^6/uL (4.70-6.10); RED CELL DISTRIBUTION WIDTH 14.6 % (12.0-15.0); WHITE BLOOD COUNT 9.2 x10^3/uL (4.8-10.8)
[2023-04-04 07:35] LABS: ALBUMIN 4.4 g/dL (3.2-5.5); ALBUMIN/GLOBULIN RATIO 1.3 (1.0-2.2); ALKALINE PHOSPHATASE 66 IU/L (42-121); ALT ALANINE AMINOTRANSFERASE 22 IU/L (10-60); AST ASPARTATE AMINOTRANSFERASE 25 IU/L (10-42); BILIRUBIN,TOTAL 0.7 mg/dL (0.2-1.0); BUN - BLOOD UREA NITROGEN 19 mg/dL (6-20); CALCIUM 9.4 mg/dL (8.5-10.3); CARBON DIOXIDE - CO2 29 mmol/L (21-32); CHLORIDE 107 mmol/L (101-111); CHOL/HDL RATIO 2.9 (<5.0); CHOLESTEROL 116 mg/dL; CREATININE 1.2 mg/dL (0.6-1.3); GFR - MDRD 60 (>89); GLUCOSE 92 mg/dL (74-104); HDL CHOLESTEROL 40 mg/dL; LDL CHOLESTEROL,CALCULATED 56 mg/dL; LDL/HDL RATIO 1.4 (<3.6); POTASSIUM 3.8 mmol/L (3.5-4.5); SODIUM 139 mmol/L (135-145); TOTAL PROTEIN 7.7 g/dL (6.4-8.9); TRIGLYCERIDES 102 mg/dL (48-352); VLDL CHOLESTEROL 20 mg/dL
[2023-04-04 07:48] LABS: THYROID STIMULATING HORMONE 0.99 uIU/mL (0.34-5.60)
[2023-04-04 07:53] LABS: PROLACTIN 13.66 ng/mL
== END 2023-04-04 07:05 | disposition home or self-care (01) ==
LOC: LAB 07:04
PROVIDERS: ATTEND Internal Medicine
DX: E03.8 Other specified hypothyroidism (principal); I25.5 Ischemic cardiomyopathy; E78.5 Hyperlipidemia, unspecified; E23.6 Other disorders of pituitary gland
CPT/HCPCS: 36415; 80053; 80061; 82533; 83721; 84146; 84439; 84443; 85025

== ENCOUNTER 2023-08-08 06:53 | Outpatient (CLI) | payer MEDICARE ==
[2023-08-08 07:48] LABS: CALCIUM 9.5 mg/dL (8.5-10.3); CREATININE 1.3 mg/dL (0.6-1.3); POTASSIUM 4.2 mmol/L (3.5-4.5)
--- NOTE | 2023-08-08 15:24 | XRAY Report ---
PROCEDURE: Knee 2 View BILAT INDICATIONS: OSTEOARTHRITIS KNEES BILATERAL TECHNIQUE: 2 views of the knee(s) were acquired. COMPARISON: None. FINDINGS: Bones: No fractures or dislocations. No suspicious bony lesions. Moderate to severe tricompartmen asher changes bilaterally most severe in the medial compartments. Very minimal periarticular osteophyte s. No erosions. Soft tissues: Minimal knee joint effusion. No suspicious soft tissue calcifications or masses. IMPRESSION: Moderate to severe tricompartmental arthritic change most severe medially. Reviewed by: Rosemarie Pritchett MD on 08/08/2023 3:23 PM PST Approved by: Rosemarie Pritchett MD on 08/08/2023 3:23 PM [facility] Station ID: [id number]
== END 2023-08-08 06:54 | disposition home or self-care (01) ==
LOC: DI 06:53
PROVIDERS: ATTEND Internal Medicine
DX: M17.0 Bilateral primary osteoarthritis of knee (principal); I25.5 Ischemic cardiomyopathy; E27.40 Unspecified adrenocortical insufficiency; E03.8 Other specified hypothyroidism
CPT/HCPCS: 36415; 80048; 82533; 84439

== ENCOUNTER 2023-11-14 07:06 | Outpatient (CLI) | payer MEDICARE ==
[2023-11-14 07:34] LABS: BASOPHILS # (AUTO) 0.2 10^3/uL (0.0-0.1); BASOPHILS % (AUTO) 2.2 %; EOSINOPHILS # (AUTO) 0.4 10^3/uL (0.0-0.7); EOSINOPHILS % (AUTO) 4.8 %; HCT - HEMATOCRIT 41.2 % (42.0-52.0); HGB - HEMOGLOBIN 12.5 g/dL (14.0-18.0); LYMPHOCYTES # (AUTO) 1.9 10^3/uL (1.5-3.5); MEAN CORPUSCULAR HEMOGLOBIN 25.4 pg (27.0-31.0); MEAN CORPUSCULAR HGB CONC 30.3 g/dL (32.0-36.0); MEAN CORPUSCULAR VOLUME 83.6 fL (80.0-94.0); MEAN PLATELET VOLUME 10.8 fL (7.4-11.4); MONOCYTES % (AUTO) 13.7 %; NEUTROPHILS # (AUTO) 3.9 10^3/uL (1.5-6.6); PLT - PLATELET COUNT 229 10^3/uL (130-450); RED BLOOD COUNT 4.93 10^6/uL (4.70-6.10); WHITE BLOOD COUNT 7.4 x10^3/uL (4.8-10.8)
[2023-11-14 07:45] LABS: ALBUMIN 4.4 g/dL (3.2-5.5); ALBUMIN/GLOBULIN RATIO 1.3 (1.0-2.2); BILIRUBIN,TOTAL 0.7 mg/dL (0.2-1.0); CALCIUM 9.6 mg/dL (8.5-10.3); CREATININE 1.2 mg/dL (0.6-1.3); POTASSIUM 3.9 mmol/L (3.5-4.5); TOTAL PROTEIN 7.9 g/dL (6.4-8.9); URIC ACID 7.3 mg/dL (4.4-7.6)
== END 2023-11-14 07:07 | disposition home or self-care (01) ==
LOC: LAB 07:06
PROVIDERS: ATTEND Internal Medicine
DX: I25.5 Ischemic cardiomyopathy (principal); Z12.5 Encounter for screening for malignant neoplasm of prostate; E03.8 Other specified hypothyroidism; M10.9 Gout, unspecified
CPT/HCPCS: 36415; 80053; 84439; 84550; 85025; G0103; 84153

== ENCOUNTER 2024-01-06 07:49 | Outpatient (CLI) | payer MEDICARE ==
[2024-01-06 08:22] LABS: CHOL/HDL RATIO 3.5 (<5.0); CHOLESTEROL 109 mg/dL; HDL CHOLESTEROL 31 mg/dL; LDL CHOLESTEROL,CALCULATED 52 mg/dL; LDL/HDL RATIO 1.7 (<3.6); TRIGLYCERIDES 132 mg/dL (48-352); VLDL CHOLESTEROL 26 mg/dL
== END 2024-01-06 07:50 | disposition home or self-care (01) ==
LOC: LAB 07:49
PROVIDERS: ATTEND Internal Medicine Cardiovascular Disease
DX: E78.2 Mixed hyperlipidemia (principal)
CPT/HCPCS: 36415; 80061; 83721